=== PATIENT | female | born 1930 | race Caucasian/White ===

== ENCOUNTER 2016-05-25 06:31 | Inpatient (IN) | payer MEDICARE, OTHER ==
[2016-05-25] VITALS (10 sets, daily range): BP systolic 144–214; BP diastolic 67–97; PULSE 74–91; RESP 17–31; O2SAT 89–96
[~2016-05-25] VITALS: Ht 162.6 cm; Wt 47.0 kg
[~2016-05-25 06:31] MED LIST: AMLO5TAB2 PO; ATEN100T PO; ATOR20TA65 PO; FLUT12AE6 INHALATION; LACT-188 PO; LOSA50TA37; MULT-1065 PO; WARF5TAB7 PO
--- NOTE | 2016-05-25 06:31 | ED.REPORT ---
HPI-Dyspnea / Wheezing Date of Service May 25, 2016 ED Provider: Marbella Ibrahim MD 85 year old female with a history of chronic atrial fibrillation on warfarin, rheumatic heart disease complicated by mitral stenosis, CKD stage 3, and HTN presents to the ER via EMS due to increasing SOB for several weeks. EMS states that she was diagnosed with pneumonia in February 2016 and that symptoms have not completely resolved since. Associated symptoms include productive cough and headache. Patient denies fever, chest pain, weakness, dysuria, and bowel/ urinary symptoms. Medics report O2 saturation of 88% on room air, up to 95% with 2L O2. Patient has home O2 but there is question as to whether or not the patient understands how to use it. She lives at home with her . It is difficult to obtain a coherent history from the patient due to apparent confusion; she states that she was awakened by her upon EMS arrival. Admitted 02/17/16 after fall and observed due to warfarin use. Nursing Notes Stated Complaint: SHORTNESS OF BREATH Nursing Notes Reviewed: Yes Allergies: Coded Allergies: No Known Allergies (Verified , 08/13/15) Scheduled Amlodipine (Amlodipine) 5 Mg Tablet 5 MG PO HS Atenolol (Atenolol) 100 Mg Tablet 100 MG PO DAILY Atorvastatin Calcium (Atorvastatin Calcium) 20 Mg Tablet 20 MG PO HS Fluticasone/Salmeterol (Advair Hfa 230-21 Mcg Inhaler) 12 Gm Hfa.aer.ad 2 PUFFS INHALATION BID Lactose-Reduced Food (Ensure Original) 237 Ml Liquid 237 ML PO DAILY Losartan Potassium (Losartan Potassium) 50 Mg Tablet 50 MG DAILY Multivits-Min/Iron/FA/Lutein (Centrum Silver Women Tablet) 8 Mg Iron-400 Mcg- 300 Mcg Tablet 1 EACH PO DAILY Warfarin Sodium (Warfarin Sodium) 5 Mg Tablet 5 MG PO DAILY General Time Seen by MD: 06:31 Chief Complaint Shortness of breath Hx Obtained From: Patient, EMS Arrived By: Ambulance Sudden in Onset?: No Onset Occurred: More than a week ago... ("several weeks") Symptom Duration: Since onset Location: : None Associated with: Denies: Chest pain Context Related History: Reports: Pneumonia Past Medical History Past Medical History Notes: DNR Past Medical History 1. Rheumatic heart disease complicated by mitral stenosis. She underwent a balloon valvuloplasty in 2008. She also has some history of aortic sclerosis with [id number] aortic insufficiency. 2. Diverticulosis. 3. 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 4. 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 Reports: COPD, Hyperlipidemia, Hypertension Reports: Atrial fibrillation (Chronic, on coumadin), Kidney disease (Chronic, stage III) Past Surgical History Lumpectomies for breast carcinoma in situ in 1987 and 1996 Balloon Valvuloplasty in 2009 Reports: Appendectomy, Cataract surgery, Cholecystectomy Smoking History Never Smoker Social History Alcohol Use: Denies alcohol use Drug Use: Denies drug use Other Social History: Good social support, , Local resident Ambulatory Status Independent Review of Systems Constitutional: Denies: Chills, Fever, Weakness - generalized Respiratory: Reports: Dyspnea on exertion, Prod cough, clear, Shortness of breath Cardiovascular: Denies: Chest pain Complete sys rev & neg: except as marked. GI: Denies: Abdominal pain, Constipation, Diarrhea, Nausea, Vomiting Female: Denies: Dysuria, Urinary frequency, Urinary urgency Neurologic: Reports: Headache Physical Exam Physical Exam Notes: Initial Vital Signs Vital Signs (First) Date Time Temp Pulse Resp B/P Pulse Ox O2 Delivery O2 Flow Rate FiO2 05/25/16 06:35 37 86 22 214/97 89 Room Air 05/25/16 07:51 2 Initial VS: Reviewed Head / Eyes: Atraumatic, Normocephalic Abdomen / GI: Soft, Non-tender, No guarding, No rebound, No distention Extremities: Vascular intact, Neuro intact, No swelling, No tenderness Skin: Warm, Dry, No cyanosis General/Constitutional: Awake, Alert, Well developed Alertness: Positive: Confused Thin, almost to the point of cachexia. Neck: Atraumatic, Supple, No meningismus, Full range of motion, No swelling, Non-tender, No masses Respiratory / Chest: No rales, No rhonchi, No stridor Speaking in 4-5 word sentences. Poor air movement with decreased lung sounds in the Right base. Scattered wheezes throughout all lung sparrow. Cardiovascular: Heart rate NL, Regular rhythm, Heart sounds NL, Peripheral circulation NL Heart Rate / Rhythm: Positive: Irreg irregular rhythm Heart Sounds / Murmur: Positive: Diastolic murmur present. (II/, best heard at the apex) Neurologic: Speech NL, No motor deficits, No sensory deficits Mental Status: Positive: Confused Interpretation & Diagnostics Lab Results Interpretation Result Diagram: 05/25/16 0630 05/25/16 0630 Test 05/25/16 06:30 05/25/16 07:21 05/25/16 07:35 White Blood Count 10.0th/mm3 (3.8-10.1) Red Blood Count 4.98mil/mm3 (3.90-5.20) Hemoglobin 14.7g/dL (12.0-15.6) Hematocrit 45.9% (35.0-46.0) Mean Corpuscular Volume 92.2fL (81-100) Mean Corpuscular Hemoglobin 29.5pg (27.0-35.0) Mean Corpuscular Hemoglobin Concent 32.0% (32.0-37.0) Red Cell Distribution Width 15.5% (12.3-15.4) Platelet Count 300bil/L (150-400) Neutrophils (%) (Auto) 81.2% (40-74) Lymphocytes (%) (Auto) 9.7% (14-46) Monocytes (%) (Auto) 7.7% (4-12) Eosinophils (%) (Auto) 0.7% (0-5) Basophils (%) (Auto) 0.4% (0-3) Prothrombin Time 29.8sec (8.1-12.5) Prothromb Time International Ratio 2.73ratio Sodium Level 140mEq/L (134-144) Potassium Level 4.6mEq/L (3.5-5.2) Chloride Level 100mEq/L (97-108) Carbon Dioxide Level 28mmol/L (18-29) Blood Urea Nitrogen 42mg/dL (8-27) Creatinine 1.61mg/dL (0.57-1.00) Estimat Glomerular Filtration Rate 44mL/min (>59) Glucose Level 140mg/dL (60-99) Calcium Level 10.2mg/dL (8.5-10.1) Total Bilirubin 0.9mg/dL (0.0-1.2) Aspartate Amino Transf (AST/SGOT) 38U/L (0-50) Alanine Aminotransferase (ALT/SGPT) 19U/L (0-32) Alkaline Phosphatase 146U/L (25-165) Troponin T 0.013ug/L (0.0-0.011) Pro-B-Type Natriuretic Peptide 95015se/mL (0-738) Total Protein 8.0g/dL (6.4-8.4) Albumin 4.1g/dL (3.4-5.0) Procalcitonin 0.41ng/mL (0.00-0.08) Urine Color Straw (YELLOW) Urine Appearance Hazy (CLEAR,HAZY) Urine pH 7.0 (5.0-8.0) Urine Specific [place] 1.020 (1.003-1.035) Urine Protein 100mg/dL (NEG,TRACE) Urine Glucose (UA) Negativemg/dL (NEGATIVE) Urine Ketones Negativemg/dL (NEGATIVE) Urine Occult Blood Trace (NEGATIVE) Urine Nitrite Negative (NEGATIVE) Urine Bilirubin Negative (NEGATIVE) Urine Urobilinogen Normalmg/dL (NORMAL) Urine Leukocyte Esterase Trace (NEGATIVE) Urine RBC 0-2/hpf (0-2) Urine WBC 11-50/hpf (0-5) Urine Epithelial Cells Occasional/hpf (NONE-MOD) Urine Crystals None seen (NONE SEEN) Urine Bacteria Few/hpf (NONE-FEW) Urine Hyaline Casts None/lpf (NONE) Urine Granular Casts None seen (NONE SEEN) Urine Waxy Casts None seen (NONE SEEN) Urine Red Blood Cell Casts None seen (NONE SEEN) Urine White Blood Cell Casts None seen (NONE SEEN) Urine Mucus None seen (None Seen) Urine Trichomonas None seen (NONE SEEN) Urine Yeast None (NONE SEEN) Urinalysis Comment None Urine Culture Reflexed Indicated Lactic Acid Level 1.3mmol/L (0.4-2.0) ECG Interpretation ECG Interpretation: 4:1 atrial flutter. No ischemia. Similar to 02/17/2016 Time: 06:55 Interpreted by: ED physician X-Ray Chest Interpretation Chest Xray Interpretation: Cardiomegaly. Cephalization. Small left pleural effusion. No suggestion of infiltrate or pneumonia. View: Portable, 1 view Interpretation / Wet Read by: Wet read ED physician Re-Eval/Medical Decision Med Decision/Clinical Course Presents with increased confusion, increased dyspnea. Possibility of sepsis was considered she was given fluid as well as community-acquired pneumonia antibiotics while additional details will be sorted out. As labs and imaging returned white count was normal and she remains quite hypotensive as is her baseline. Suspect altered mental status is closer to her baseline and exacerbated by hypoxia likely not related to sepsis Acute decompensation of her heart failure with significant volume overload. Slight elevation in troponin likely subsequent to her heart failure rather than an N STEMI. UA shows white blood cells and she has received ceftriaxone will culture her urine and see if this turns out to truly be a UTI complicating all the above issues Source of Hx: Old records Re-Evaluation/Progress #1: Time of Eval: 08:19 Patient Status: Condition improved Re-Evaluation/Progress Note: Labs evaluated. Clinical picture is now changing to that of acute congestive heart failure rather than pneumonia. Will stop fluids. Mild diuresis. Arrange for hospital admission. We will also give her routine morning hypertensive meds, atenolol 100 mg and losartan 50 mg Re-Evaluation/Progress #2: Time of Eval: 08:26 Re-Evaluation/Progress Note: Discussed lab and radiology results and need for admission. Patient is amenable to the plan. CODE STATUS: DNAR, DNI Consultation : Referral / Consult Name: Praveen Hughes MD Consulted With: Hospitalist Call Returned at: 08:45 Labor Arbitrator Hearing Office: Agrees with eval, Agrees with plan, Accepts admit Counseled Regarding: Diagnosis, Lab results, Need for admission Discharge & Departure Impression: Primary Impression: CHF (congestive heart failure) Additional Impressions: Hypoxia Atrial fibrillation UTI (urinary tract infection) Disposition: ADMITTED TO HOSPITAL Discharge Condition All VS Reviewed: Yes Condition: Stable Referrals: Dusty Lee (PCP) Scribe Attestation Portions of this note were transcribed by Thanh Amor. I, Dr. Ibrahim, personally performed the history, physical exam and medical decision-making; I reviewed and confirmed the accuracy of the information in the transcribed note. Signed by: Marck Jimenez, 05/25/2016 and 08:47 copies to: Dusty Lee Shawna L MD May 25, 2016 06:31 THANH AMOR May 25, 2016 06:32
[2016-05-25] MEDS ORDERED: Albuterol-Ipratropium 3 mL Inhalation Solution ONE (06:38)
[2016-05-25] MEDS ORDERED: Albuterol-Ipratropium 3 mL Inhalation Solution NEB ONE (06:45)
[2016-05-25 06:52] LABS: BASOPHILS % (AUTO) 0.4 % (0-3); EOSINOPHILS % (AUTO) 0.7 % (0-5); MONOCYTES % (AUTO) 7.7 % (4-12); Mean Corpuscular Hemoglobin 29.5 pg (27.0-35.0); Mean Corpuscular Volume 92.2 fL (81-100); NEUTROPHILS % (AUTO) 81.2 % (40-74); Platelet Count 300 bil/L (150-400)
[2016-05-25] MEDS ORDERED: cefTRIAXone Inj 2,000 MG in Dextrose 5% Minibag Plus 50 ML IV ONE (06:55)
[2016-05-25] MEDS ORDERED: Azithromycin Inj 500 MG in Dextrose 5% w/Vial Mate 250 ML IV ONE (06:55)
[2016-05-25] MEDS ORDERED: MethylprednisoLONE Sodium Succinate 62.5 mg/mL 2 mL Inj IVPUSH ONE (06:55)
[2016-05-25] MEDS ORDERED: 0.9% Sodium Chloride 1,000 ML IV ONE (06:55)
[2016-05-25 07:13] LABS: TROPONIN T 0.013 ug/L (0.0-0.011)
[2016-05-25 07:45] LABS: INR 2.73 ratio
[2016-05-25 07:47] LABS: APPEARANCE,URINE HAZY (CLEAR,HAZY); COLOR,URINE STRAW (YELLOW); OCCULT BLOOD,URINE TRACE (NEGATIVE); UROBILINOGEN,URINE NORMAL (NORMAL)
[2016-05-25] MEDS ORDERED: Furosemide 10 mg/mL 4 mL Inj IVPUSH ONE (08:25)
[2016-05-25] MEDS ORDERED: Alum-Mag Hydrox-Simeth 30 mL Suspension PO PRN ×2 (09:30→11:25)
[2016-05-25] MEDS ORDERED: Ondansetron 2 mg/mL 2 mL Inj IVPUSH PRN ×2 (09:30→11:25)
[2016-05-25] MEDS ORDERED: Polyethylene Glycol (PEG) 17 Gm Powder PO PRN (11:25)
--- NOTE | 2016-05-25 12:21 | NUR ---
Arrival to 1002 Pt arrival from ER, report taken from TAHIRA Valerio. Pt able to get to [facility] with 1PA at transfer, reports generalized weakness which is improved from this morning. Pt is tachypneic but denies SOB at this time, on 3L NC, SpO2 98%. Denies pain. at bedside. Pt is A&O to self and place but is poor historian and dementia at baseline; is also a poor historian. Med rec completed based on external RX and son asked to bring med list in. Confirmed with that no medications were taken yesterday d/t malaise. Pt also reports a recent decline in nutritional intake d/t appetite loss; Ensure added to all meal trays.
--- NOTE | 2016-05-25 13:52 | PCM.CONPHA ---
Subjective Date of Service: May 25, 2016 Requesting Provider: Praveen Hughes MD Objective Vital Signs Date Time Temp Pulse Resp B/P Pulse Ox O2 Delivery O2 Flow Rate FiO2 05/25/16 13:45 36.6 82 28 144/76 94 Nasal Cannula 3.00 05/25/16 13:23 82 05/25/16 12:01 Supplement Oxygen 05/25/16 10:35 80 05/25/16 10:28 36.5 75 31 160/82 93 Nasal Cannula 3.00 05/25/16 09:23 37 77 19 148/78 96 Nasal Cannula 2 05/25/16 09:10 77 19 148/78 96 Nasal Cannula 2 05/25/16 07:51 91 22 153/71 95 Nasal Cannula 2 05/25/16 06:35 37 86 22 214/97 89 Room Air Test 05/25/16 06:30 05/25/16 07:21 05/25/16 07:35 White Blood Count 10.0th/mm3 (3.8-10.1) Red Blood Count 4.98mil/mm3 (3.90-5.20) Hemoglobin 14.7g/dL (12.0-15.6) Hematocrit 45.9% (35.0-46.0) Mean Corpuscular Volume 92.2fL (81-100) Mean Corpuscular Hemoglobin 29.5pg (27.0-35.0) Mean Corpuscular Hemoglobin Concent 32.0% (32.0-37.0) Red Cell Distribution Width 15.5% (12.3-15.4) Platelet Count 300bil/L (150-400) Neutrophils (%) (Auto) 81.2% (40-74) Lymphocytes (%) (Auto) 9.7% (14-46) Monocytes (%) (Auto) 7.7% (4-12) Eosinophils (%) (Auto) 0.7% (0-5) Basophils (%) (Auto) 0.4% (0-3) Prothrombin Time 29.8sec (8.1-12.5) Prothromb Time International Ratio 2.73ratio Sodium Level 140mEq/L (134-144) Potassium Level 4.6mEq/L (3.5-5.2) Chloride Level 100mEq/L (97-108) Carbon Dioxide Level 28mmol/L (18-29) Blood Urea Nitrogen 42mg/dL (8-27) Creatinine 1.61mg/dL (0.57-1.00) Estimat Glomerular Filtration Rate 44mL/min (>59) Glucose Level 140mg/dL (60-99) Calcium Level 10.2mg/dL (8.5-10.1) Total Bilirubin 0.9mg/dL (0.0-1.2) Aspartate Amino Transf (AST/SGOT) 38U/L (0-50) Alanine Aminotransferase (ALT/SGPT) 19U/L (0-32) Alkaline Phosphatase 146U/L (25-165) Troponin T 0.013ug/L (0.0-0.011) Pro-B-Type Natriuretic Peptide 63495df/mL (0-738) Total Protein 8.0g/dL (6.4-8.4) Albumin 4.1g/dL (3.4-5.0) Procalcitonin 0.41ng/mL (0.00-0.08) Urine Color Straw (YELLOW) Urine Appearance Hazy (CLEAR,HAZY) Urine pH 7.0 (5.0-8.0) Urine Specific [place] 1.020 (1.003-1.035) Urine Protein 100mg/dL (NEG,TRACE) Urine Glucose (UA) Negativemg/dL (NEGATIVE) Urine Ketones Negativemg/dL (NEGATIVE) Urine Occult Blood Trace (NEGATIVE) Urine Nitrite Negative (NEGATIVE) Urine Bilirubin Negative (NEGATIVE) Urine Urobilinogen Normalmg/dL (NORMAL) Urine Leukocyte Esterase Trace (NEGATIVE) Urine RBC 0-2/hpf (0-2) Urine WBC 11-50/hpf (0-5) Urine Epithelial Cells Occasional/hpf (NONE-MOD) Urine Crystals None seen (NONE SEEN) Urine Bacteria Few/hpf (NONE-FEW) Urine Hyaline Casts None/lpf (NONE) Urine Granular Casts None seen (NONE SEEN) Urine Waxy Casts None seen (NONE SEEN) Urine Red Blood Cell Casts None seen (NONE SEEN) Urine White Blood Cell Casts None seen (NONE SEEN) Urine Mucus None seen (None Seen) Urine Trichomonas None seen (NONE SEEN) Urine Yeast None (NONE SEEN) Urinalysis Comment None Urine Culture Reflexed Indicated Lactic Acid Level 1.3mmol/L (0.4-2.0) Assessment/Plan Assessment/Plan Warfarin dosing per pharmacy Indication: atrial fibrillation INR goal: 2-3 Home dose: warfarin 5 mg daily (per med rec. Attempted to confirm with patient but she appears confused and cannot recall.) INR today: 2.73 INR is therapeutic today. Will continue home dose of 5 mg daily. Give warfarin 5mg PO at 1700 today. Pharmacy to continue to monitor and dose warfarin daily. Thank you, Bibi Griffin Pharmacist Bibi Griffin May 25, 2016 13:52
--- NOTE | 2016-05-25 17:26 | DRSVH ---
PROCEDURE: X-RAY CHEST ONE VIEW, PORTABLE ([id number]) INDICATIONS: SHORTNESS OF BREATH TECHNIQUE: One view of the chest was acquired. COMPARISON: [facility], CR, XR CHEST 2VW, 03/23/2016, 11:43. [facility], C R, XR CHEST 1VW (PORTABLE), 02/17/2016, 5:07. FINDINGS: Surgical changes and devices: None. Lungs and pleura: Small pleural effusion is present and there is airspace opacity within the left navid g base. Lungs otherwise are clear and hyperinflated. Mediastinum: Mediastinal contours appear normal. Heart size is normal. Bones and chest wall: No suspicious bony lesions. Overlying soft tissues appear unremarkable. IMPRESSION: Small left pleural effusion and basilar airspace opacity consistent with compressive atel ectasis versus pneumonia. Correlate clinically. Dictated by: Yang Miner [facility] Interpreted: Eliana Don MD on 05/25/2016 at 9:57 Transcribed by: KEVIN on 05/25/2016 at 10:00 Approved by: Eliana Don MD, PhD on 05/25/2016 at 16:57
--- NOTE | 2016-05-25 17:31 | DRSVH ---
[facility] [address] [place] [address] Echocardiogram Report Name: SEJAL GILL JStudy Date: 05/25/2016 Heigh t: 65 in Hospital Exam Location: [facility] Weigh t: 100 lb Gender: Female BSA: 1.5 m2 : 1930 Age: 85 yrs BP: 1 60/82 mmHg Reason For Study: Congestive Heart Failure Ordering Physician: HOSPITALIST [facility] Performed By: Marianne Weeks Referring Physician: RONEN DIAZ Interpretation Summary The left ventricular cavity is small. There is mild concentric left ventricular hypertrophy. The ejection fraction is estimated to be 60-65%. Diastolic function could not be accurately assessed due to atrial fibrillation. The right ventricle is normal in size and function. The mitral valve leaflets are severely calcified. There is moderate calcification extending into the subvalvular apparatus. There is moderate mitral stenosis. The mitral valve mean gradient is 5.7 mmHg. There is trace mitral regurgitation. The aortic valve is moderately calcified. The aortic valve mean gradient is 19.9 mmHg. There is moderate to severe aortic stenosis. There is moderate aortic regurgitation. The left atrium is severely dilated. Spontaneous contrast in LA. The tricuspid valve is normal in structure and function. There is mild tricuspid regurgitation. The right ventricular systolic pressure is estimated at 26 mmHg assuming a right atrial pressure of 3 mm Hg. There is no pericardial effusion. There is a moderate left-sided pleural effusion. Compared to the previous study on 08/14/2015, the pleural effusion is new. Procedure: A two-dimensional transthoracic echocardiogram with color flow and Doppler was performed. The study quality was technically adequate. Comparison is made with the echocardiogram of 08/14/15. The patient was in atrial fibrillation with heart rates between 64-94 bpm during the exam. Left Ventricle: The left ventricular cavity is small. There is mild concentric left ventricular hypertrophy. The ejection fraction is estimated to be 60-65%. Diastolic function could not be accurately assessed due to atrial fibrillation. Right Ventricle: The right ventricle is normal in size and function. Atria: The left atrium is severely dilated. Spontaneous contrast in LA. Right atrial size is normal. There is no Doppler evidence for an interatrial shunt. Mitral Valve: The mitral valve leaflets are severely calcified. There is moderate calcification extending into the subvalvular apparatus. There is moderate mitral annular calcification. The mitral valve mean gradient is 5.7 mmHg. Mitral valve area by pressure half time is 1.9 cm2. There is moderate mitral stenosis. There is trace mitral regurgitation. Aortic Valve: The aortic valve is trileaflet. The aortic valve is moderately calcified. The peak aortic velocity is 2.95 m/sec. The aortic valve mean gradient is 19.9 mmHg. The calculated aortic valve area is 0.78 cm2. The aortic severity ratio is 0.27. There is moderate to severe aortic stenosis. There is moderate aortic regurgitation. Tricuspid Valve: The tricuspid valve is normal in structure and function. There is mild tricuspid regurgitation. The right ventricular systolic pressure is estimated at 26 mmHg assuming a right atrial pressure of 3 mm Hg. Pulmonic Valve: The pulmonic valve is not well seen, but is grossly normal. There is a trace or physiologic amount of pulmonic regurgitation. Great Vessels: The aortic root is normal size. The ascending aorta is normal in size. The pulmonary artery is not well visualized, but is probably normal size. The IVC is of normal diameter and collapses greater than 50% with a sniff. This suggests a low right atrial pressure of 3 mm Hg. Pericardium/ Pleura There is no pericardial effusion. There is a moderate left-sided pleural effusion. MMode/2D Measurements & Calculations LVIDd: 3.6 cm LA dimension: 4.8 cm RA long axis LVOT diam LVIDs: 2.8 cm FS: 22.6 % LA A2 area: 48.9 cm RA area AoV Opening EPSS: 1.3 cm LA A4 area: 54.6 cm IVSd: 1.2 cm LA length (vol): 8.8 cm: 17.5 cm Ao root diam LVPWd: 1.2 cm LA vol: 257.7 ml RA vol LA vol index : 42.4 ml asc Aorta RA Diam: 3.3 cm : 176.9 ml/m2 : 29.1 mm2 IVC diam: 1.4 cm LV moore. diameter/BSA LV sys. diameter/BSA RVD1 (basal) TAPSE: 1.3 cm (cm/m^2): 2.4 (cm/m^2): 1.9 Doppler Measurements & Calculations Ao V2 max MV P1/2t: 117.0 msec Med Peak E' Herve TR max herve : 294.8 cm/sec : 240.5 cm/sec Ao max PG MVA(VTI): 0.99 cm2 Lat Peak E' Herve TR max PG : 34.8 mmHg : 23.1 mmHg Ao mean PG PA V2 max : 19.3 mmHg : 68.6 cm/sec LVOT Max Herve PA mean PG : 69.4 cm/sec PA Accel Time IZABELA(I,D): 0.78 cm : 0.11 sec sev ratio: 0.27 AI P1/2t : 601.2 msec AI dec slope : 233.8 cm/s2c MV V2 mean MV P1/2t max herve Ao V2 mean LV V1 max PG : 108.6 cm/sec : 202.1 cm/sec MV mean PG MVA(P1/2t): 1.9 cm2 Ao V2 VTI: 60.6 cm LV V1 VTI IZABELA(V,D): 0.67 cm2 : 16.6 cm MV V2 VTI: 48.1 cm PA V2 mean IZABELA indexed to BSA : 47.2 cm/sec (cm^2/m^2): 0.54 Reading Physician:05:30 PM
[2016-05-25] MEDS ORDERED: WARF2.5T82 PO (17:38)
--- NOTE | 2016-05-25 19:46 | NUR ---
Warfarin P: Pt is poor historian and according to external pharmacy records she was taking 5mg Warfarin daily. Pharmacy to control dosing. When daughter arrived it was noted that 5mg dose is M/W/ and 2.5mg is taken all other days. I: notified. Pharmacy contacted, verbal confirmation given to give 5mg dose today based on PT/INR and the fact pt did not take dose yesterday. E: Pharmacy will recheck labs in morning and adjust dose accordingly.
[2016-05-25] MEDS: Fluticasone-Salmeterol 500-50 Inhaler INHALATION SCH (20:14)
[2016-05-25] MEDS ORDERED: Heparin 5,000 Unit/mL Inj SUBQ SCH (20:30)
--- NOTE | 2016-05-25 21:46 | PCM.HPMED ---
Subjective Date of Service May 25, 2016 Primary Provider: Admitting Physician: Praveen Hughes MD Primary Care Physician: Dusty Lee Attending Physician: Praveen Hughes MD Admit Status: From the Emergency Department, Full Admit, Admit to Red Team Chief Complaint: Shortness of breath History of Present Illness: The patient is an 85 year old female with a history of chronic atrial fibrillation on warfarin, rheumatic heart disease complicated by mitral stenosis , CKD stage 3, and HTN presents to the ER via EMS due to increasing SOB for several weeks. EMS states that she was diagnosed with pneumonia in February 2016 and that symptoms have not completely resolved since. Associated symptoms include productive cough and headache. Patient denies fever, chest pain, dysuria , and bowel/urinary symptoms. She now states that she had weakness. Patient apparently had an altered mental status and her called EMS services. Medics reported that the patient's O2 saturation of 88% on room air, up to 95% with 2L O2. Patient has home O2 but there is question as to whether or not the patient was using it properly. She lives at home with her . Apparently the patient's was awakened by her upon EMS arrival. Patient was evaluated treated in the emergency room by Dr. Marbella Chan. Dr. Chan states that the patient presented with increased confusion and increased dyspnea and therefore the possibility of sepsis was considered and patient was given a fluid bolus as well his IV antibiotics for community acquired pneumonia although details are sorted out. As labs and images returned white count was found to be normal and she was hypotensive as is her baseline. Altered mental status was closer to baseline and exacerbated by hypoxia likely not to sepsis. Patient was felt to have had acute decompensation of her heart failure with significant volume overload. There is slight elevation in troponin likely subsequent to heart failure rather than non-ST elevated DC. Urinalysis showed white blood cells and she had received ceftriaxone and urine culture was ordered. Given the above acute on chronic respiratory failure likely due to acute on chronic congestive heart failure patient was admitted to the hospital service. Review of Systems: General: Patient is in no apparent distress. HEENT: Patient has no headache, patient has no diplopia, patient has no changes in vision. She has had cataract surgery in 1 eye but she cannot remember which eye Patient has no problems with their ears, nose or throat. Patient has no known dental problems. Patient has no pharyngitis or history of thrush. Neck: Patient has no stiffness in the neck. Patient has no lymphadenopathy. Patient has no other problems with their neck. Pulmonary: Patient has no shortness of breath, no cough, no expectoration of sputum. Patient has no pleurisy. Patient has no chest pain. Patient has no history of asthma or COPD. Cardiovascular: Patient has no chest pain. Patient has a history of rheumatic heart disease and mitral valve stenosis. Patient underwent a balloon angioplasty procedure. She states most recently she was told that she was not a candidate for any further procedures. Patient has no palpitations. Patient has no history of myocardial infarction. Patient has no history of coronary artery disease. Gastrointestinal: Patient has no history of hepatitis A, B or C. Patient has no history of peptic ulcer disease. Patient has no history of gastroesophageal reflux disease. Patient has no history of nausea, vomiting, or diarrhea. Patient has no history of hematemesis, hematochezia, or melena. Patient has no history of colitis. Renal: Patient has no history of kidney disease. No history of kidney stones. Genitourinary: Patient has no history of dysuria, frequency, or incontinence. Patient has no previous history of genitourinary problems. Musculoskeletal: Patient has no history of muscular skeletal problems other than arthritis. Neurologic: Patient has a history of 3 small strokes, with some residual expressive aphasia. Psychiatric: Patient has no history of psychiatric problems. The remainder of the entire review of systems was reviewed with patient and is as mentioned above otherwise negative. Allergies Coded Allergies: No Known Allergies (Verified , 08/13/15) Home Medications Scheduled Amlodipine (Amlodipine) 5 Mg Tablet 5 MG PO HS Atenolol (Atenolol) 100 Mg Tablet 100 MG PO DAILY Atorvastatin Calcium (Atorvastatin Calcium) 20 Mg Tablet 20 MG PO HS Fluticasone/Salmeterol (Advair Hfa 230-21 Mcg Inhaler) 12 Gm Hfa.aer.ad 2 PUFFS INHALATION BID Lactose-Reduced Food (Ensure Original) 237 Ml Liquid 237 ML PO DAILY Losartan Potassium (Losartan Potassium) 50 Mg Tablet 50 MG DAILY Multivits-Min/Iron/FA/Lutein (Centrum Silver Women Tablet) 8 Mg Iron-400 Mcg- 300 Mcg Tablet 1 EACH PO DAILY Warfarin Sodium (Warfarin Sodium) 5 Mg Tablet 5 MG PO DAILY PMH 1. Rheumatic heart disease complicated by mitral stenosis. She underwent a balloon valvuloplasty in 2008. She also has some history of aortic sclerosis with [id number] aortic insufficiency. 2. Diverticulosis. 3. 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 4. 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 Cataract surgery one I, she does not remember which Cholecystectomy Family History Patient's father at the age of 80 of old age Patient's mother at age 75 from heart problems Patient's brother of unknown problems Patient's sister is not well mentally Social History Hx Alcohol Use: No Hx Substance Use: No Hx Tobacco Use: No Smoking Status: Never Smoker Living Arrangement: with Family (patient lives with her .) Additional Information Patient was born and raised in [place] until her family moved to [place]. 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 Patient returned a scholarship to college however she met her got . Patient has been for 61 years. She is 6 para 61 of her children at the age of 21 after committing suicide. The other 5 are alive and well. Exam Vital Signs Vital Sign - Last Date Time Temp Pulse Resp B/P Pulse Ox O2 Delivery O2 Flow Rate FiO2 05/25/16 19:47 36.4 74 17 146/67 90 Room Air 05/25/16 13:45 3.00 Exam General: Patient is in no apparent distress and she is now able lie flat without any difficulty. She is quite anxious however, and gets up rather quickly to sit up in bed. HEENT: Head is atraumatic and normocephalic. Eyes: Pupils are equally round and reactive to light and accommodation. Extraocular muscles are intact. Sclera are white, anicteric. Subconjunctival mucosa is pink. Ears and nose are unremarkable. Oropharynx: There is no mucosal lesions, there is no thrush, there is no pharyngitis. Dentition is fair Neck: Is supple, there are no nodes, or masses or tenderness. Chest: Is significant for some bibasilar rales and decreased breath sounds bilaterally. There are no rhonchi, wheezes or rubs appreciated Heart: Rate is controlled, rhythm is irregular. There is a grade 2/6 systolic ejection murmur heard best at the left sternal border radiating to the apex. There is no rub or gallop. Abdomen: Good bowel sounds are present. Abdomen is soft, nontender, no organomegaly or masses were appreciated. Extremities: Are symmetrical and well perfused. There is no edema, there is no cellulitis, no rash. Neurologic: There are no focal neurological deficits. Cranial nerves II through XII are intact. There are no sensory or motor deficits. Patient has some expressive aphasia Psychiatric: Patients mood is calm and shows no sign of agitation. Genital: Deferred Rectal: Deferred Lab and Diagnostics Result Diagram: 05/25/1662905/25/16629 Microbiology Blood and urine cultures are pending from the emergency room. X-Rays, CTs and MRIs PROCEDURE: X-RAY CHEST ONE VIEW, PORTABLE ([id number]) INDICATIONS: SHORTNESS OF BREATH TECHNIQUE: One view of the chest was acquired. COMPARISON: [facility], CR, XR CHEST 2VW, 03/23/2016, 11:43. [facility], CR, XR CHEST 1VW (PORTABLE), 02/17/2016, 5:07. FINDINGS: Surgical changes and devices: None. Lungs and pleura: Small pleural effusion is present and there is airspace opacity within the left lung base. Lungs otherwise are clear and hyperinflated. Mediastinum: Mediastinal contours appear normal. Heart size is normal. Bones and chest wall: No suspicious bony lesions. Overlying soft tissues appear unremarkable. IMPRESSION: Small left pleural effusion and basilar airspace opacity consistent with compressive atelectasis versus pneumonia. Correlate clinically. Dictated by: Yang Miner RRA Interpreted: Eliana Don MD on 05/25/2016 at 9 :57 Transcribed by: KEVIN on 05/25/2016 at 10:00 Approved by: Eliana Don MD, PhD on 05/25/2016 at 16:57 Cardiac Echo Impressions Echocardiogram Report Name: SEJAL GLIL JStudy Date: 05/25/2016 Heigh t: 65 in Hospital Exam Location: [facility] Weigh t: 100 lb Gender: Female BSA: 1.5 m2 : 1930 Age: 85 yrs BP: 1 60/82 mmHg Reason For Study: Congestive Heart Failure Ordering Physician: HOSPITALIST [facility] Performed By: Marianne Weeks Referring Physician: PRAVEEN HUGHES Interpretation Summary The left ventricular cavity is small. There is mild concentric left ventricular hypertrophy. The ejection fraction is estimated to be 60-65%. Diastolic function could not be accurately assessed due to atrial fibrillation. The right ventricle is normal in size and function. The mitral valve leaflets are severely calcified. There is moderate calcification extending into the subvalvular apparatus. There is moderate mitral stenosis. The mitral valve mean gradient is 5.7 mmHg. There is trace mitral regurgitation. The aortic valve is moderately calcified. The aortic valve mean gradient is 19.9 mmHg. There is moderate to severe aortic stenosis. There is moderate aortic regurgitation. The left atrium is severely dilated. Spontaneous contrast in LA. The tricuspid valve is normal in structure and function. There is mild tricuspid regurgitation. The right ventricular systolic pressure is estimated at 26 mmHg assuming a right atrial pressure of 3 mm Hg. There is no pericardial effusion. There is a moderate left-sided pleural effusion. Compared to the previous study on 08/14/2015, the pleural effusion is new. Assessment & Plan The patient is an 85 year old female with a history of chronic atrial fibrillation on warfarin, rheumatic heart disease complicated by mitral stenosis , CKD stage 3, and HTN presents to the ER via EMS due to increasing SOB for several weeks. EMS states that she was diagnosed with pneumonia in February 2016 and that symptoms have not completely resolved since. Associated symptoms include productive cough and headache. Patient denies fever, chest pain, dysuria , and bowel/urinary symptoms. She now states that she had weakness. Patient apparently had an altered mental status and her called EMS services. Medics reported that the patient's O2 saturation of 88% on room air, up to 95% with 2L O2. Patient has home O2 but there is question as to whether or not the patient was using it properly. She lives at home with her . Apparently the patient's was awakened by her upon EMS arrival. Patient was evaluated treated in the emergency room by Dr. Marbella Chan. Dr. Chan states that the patient presented with increased confusion and increased dyspnea and therefore the possibility of sepsis was considered and patient was given a fluid bolus as well his IV antibiotics for community acquired pneumonia although details are sorted out. As labs and images returned white count was found to be normal and she was hypotensive as is her baseline. Altered mental status was closer to baseline and exacerbated by hypoxia likely not to sepsis. Patient was felt to have had acute decompensation of her heart failure with significant volume overload. There is slight elevation in troponin likely subsequent to heart failure rather than non-ST elevated DC. Urinalysis showed white blood cells and she had received ceftriaxone and urine culture was ordered. Given the above acute on chronic respiratory failure likely due to acute on chronic congestive heart failure patient was admitted to the hospital service. Acute on chronic respiratory failure -Patient found to have hypoxia and confusion due to hypoxia with shortness of breath evidence of congestive heart failure and left pleural effusion with atelectasis - This appears to be primarily due to Acute on chronic diastolic congestive heart failure - Echocardiogram ordered and results are as above - IV Lasix 40 mg twice a day ordered - Oxygen ordered and I will ordered SVN treatments as needed - Solu-Medrol 125 mg IV were given in the emergency room will hold further doses. Chronic atrial fibrillation/atrial flutter - Continue warfarin per pharmacy - Telemetry monitoring - Rate control - Check serial troponins suspect slight elevation in troponins due to troponin leak from acute and chronic changes can congestive heart failure History of rheumatic heart disease - Patient appears to have progression of aortic stenosis to mild to severe which may be contributing to her congestive heart failure - Patient also has moderate mitral valve stenosis after balloon angioplasty and has a severely calcified valve. This also likely contributing to her diastolic congestive heart failure. - Continue telemetry monitoring Chronic kidney disease stage III - Patient was given a bolus of normal saline in the emergency room prior to her diagnosis of congestive heart failure. - Continue Lasix 40 mg IV twice a day for now - Monitor renal function very closely - Posterior fluid and electrolytes daily and replace deficiencies as needed. Disposition: Patient was admitted as an inpatient as it is expected that she will be her more than 2 mid dates for evaluation and treatment of the above problems. Pain Evaluation: Adequate Pain Control GI Prophylaxis: Proton Pump Inhibitor VTE Prophylaxis: Theraputic Anticoag with Warfarin Resuscitation Status: CPR: Attempt Resuscitation Praveen Hughes MD May 25, 2016 21:46
[2016-05-25] MEDS: Furosemide 10 mg/mL 4 mL Inj IVPUSH SCH (22:36)
--- NOTE | 2016-05-26 04:39 | NUR ---
Safety Pt is impulsive and unable to be reoriented to situation. SCDs left off as they pose a fall risk and keep pt awake. Becky alarm on for safety, staff in close proximity as often as possible. BSC at bedside, pt is weak but transfers well with assistance. Frequent rounding ongoing.
[2016-05-26 04:40] VITALS: BP 171/80; PULSE 73; RESP 16; O2SAT 91
[2016-05-26 06:01] LABS: BASOPHILS % (AUTO) 0.1 % (0-3); EOSINOPHILS % (AUTO) 0 % (0-5); MONOCYTES % (AUTO) 6.4 % (4-12); Mean Corpuscular Hemoglobin 29.5 pg (27.0-35.0); Mean Corpuscular Volume 92.5 fL (81-100); NEUTROPHILS % (AUTO) 88.4 % (40-74); Platelet Count 273 bil/L (150-400)
[2016-05-26 06:20] LABS: INR 4.05 ratio
[2016-05-26 06:27] LABS: TROPONIN T 0.01 ug/L (0.0-0.011)
[2016-05-26 06:41] LABS: Magnesium 1.9 mg/dL (1.6-2.6); Phosphorus 4.2 mg/dL (2.5-4.9)
[2016-05-26 08:00] VITALS: PULSE 66
[2016-05-26] MEDS: Fluticasone-Salmeterol 500-50 Inhaler INHALATION SCH ×2 (08:30→20:23)
[2016-05-26] MEDS ORDERED: cefTRIAXone Inj 1,000 MG, Lidocaine PF 1% Inj 2.1 ML in Syringe 0 EACH IM SCH (08:30)
[2016-05-26] MEDS: Pantoprazole 20 mg ER24 Tablet PO SCH (09:59)
[2016-05-26] MEDS: cefTRIAXone 2,000 mg/D5W 50 mL IV Minibag Plus IV SCH ×2 (10:03)
[2016-05-26] MEDS ORDERED: 0.9% Sodium Chloride 250 ML ONE (10:05)
[2016-05-26 10:06] VITALS: BP 142/101; PULSE 76; RESP 16; O2SAT 93
--- NOTE | 2016-05-26 10:25 | PCM.PHAPRO ---
Progress Date of Service: May 26, 2016 Requesting Provider: Praveen Hughes MD Shortness of breath Warfarin dosing per pharmacy Indication: atrial fibrillation INR goal: 2-3 Home dose: warfarin 5 mg on MWF and 2.5 all other days of the week (updated) Date -May 26-May INR 2.73 4.05 INR change 1.32 Warf Dose 5 mg XXXX INR is supratherapeutic today. Med rec was updated last night with daughter after warfarin dose was given. Usual dose on should have been warfarin 2.5 mg. Hold warfarin dose today. Pharmacy to continue to monitor and dose warfarin daily. Thank you, Bibi Griffin Pharmacist Bibi Griffin May 26, 2016 10:25
[2016-05-26] MEDS: Furosemide 10 mg/mL 4 mL Inj IVPUSH SCH ×2 (11:39→20:23)
--- NOTE | 2016-05-26 13:01 | DRSVH ---
PROCEDURE: X-RAY CHEST, TWO VIEWS ([id number]) INDICATIONS: 85 year-old female with congestive heart failure. TECHNIQUE: 2 views of the chest were acquired. COMPARISON: [facility], CR, XR CHEST 1VW (PORTABLE), 05/25/2016, 7:31. [facility], CR, XR CHEST 2VW, 03/23/2016, 11:43. [facility], CR, XR CHEST 2VW, 02/24/2016, 15:29. FINDINGS: Surgical changes and devices: None. Lungs and pleura: There is persistent small left subpulmonic pleural effusion. No pneumothorax. There is hazy left lower lobe opacity on the lateral projection. Right lung remains clear. Lung volumes ar e prominent. Mediastinum: Mediastinal contours are normal. Moderate cardiomegaly is unchanged. There is aortic a therosclerosis. Bones and chest wall: No suspicious bony abnormalities. Soft tissues appear unremarkable. IMPRESSION: 1. Persistent small left basal pleural effusion is of uncertain etiology. 2. Left lower lobe hazy opacity may represent compressive atelectasis and/or pneumonia. 3. Moderate cardiomegaly as before, without pulmonary edema to suggest congestive heart failure. 4. Prominent lung volumes raise the question of chronic obstructive pulmonary disease. Dictated by: Malcolm Winslow M.D. on 05/26/2016 at 12:58 Approved by: Malcolm Winslow M.D. on 05/26/2016 at 13:00
--- NOTE | 2016-05-26 13:55 | NUR ---
Social Work: Initial Assessment attempt SW unable to complete initial assessment with patient due to patient's altered mental status. [employer] Serviceperson attempted to speak with patient's spouse to complete initial assessment, but spouse stated that he would be at the hospital later today and requested that the SW come by the room. SW will attempt to complete initial assessment later. Bharati Aguayo, GRETCHEN, ACM
[2016-05-26 15:01] VITALS: PULSE 88
[2016-05-26 15:26] VITALS: BP 154/80; PULSE 68; RESP 18; O2SAT 94
--- NOTE | 2016-05-26 19:19 | NUR ---
Warfarin Warfarin dose held today d/t increased PT/INR of 44.6/4.05. aware. Redraw performed for tomorrow.
[2016-05-26 20:17] VITALS: BP 180/79; PULSE 82; RESP 20; O2SAT 92
--- NOTE | 2016-05-26 20:46 | PCM.PNMED ---
Subjective Date of Service May 26, 2016 Subjective The patient is feeling a little bit better. She was able to ambulate in the hallway with physical therapy today. She has no new complaints. Exam Vital Signs Vital Sign - Last Date Time Temp Pulse Resp B/P Pulse Ox O2 Delivery O2 Flow Rate FiO2 05/26/16 20:17 36.5 82 20 180/79 92 Nasal Cannula 2.00 Intake and Output 05/25/16 05/25/16 05/26/16 Cumulative From/Thru 15:00 23:00 07:00 05/25/16 08:18 - 05/26/16 05:09 Intake Total 500 ml 420 ml 100 ml 1020 ml Output Total 600 ml 780 ml 1380 ml Balance 500 ml -180 ml -680 ml -360 ml Intake Oral 420 ml 100 ml 520 ml IV Total 500 ml 500 ml Output Urine Total 600 ml 780 ml 1380 ml # Bowel Movements 1 1 Exam General: The patient is in no apparent distress. HEENT: Head is atraumatic and normocephalic. Eyes: Pupils are equally round and reactive to light and accommodation. Extraocular muscles are intact. Sclera are white, anicteric. Subconjunctival mucosa is pink. Ears and nose are unremarkable. Oropharynx: There is no mucosal lesions, there is no thrush, there is no pharyngitis. Dentition is fair. Neck: Is supple, there are no nodes, or masses or tenderness. Chest: Is significant for some bibasilar rales and decreased breath sounds bilaterally. There are no rhonchi, wheezes or rubs appreciated Heart: Rate is controlled, rhythm is irregular. There is a grade 2/6 systolic ejection murmur heard best at the left sternal border radiating to the apex. There is no rub or gallop. Abdomen: Good bowel sounds are present. Abdomen is soft, nontender, no organomegaly or masses were appreciated. Extremities: Are symmetrical and well perfused. There is no edema, there is no cellulitis, no rash. Neurologic: There are no focal neurological deficits. Cranial nerves II through XII are intact. There are no sensory or motor deficits. Patient has some expressive aphasia Psychiatric: Patients mood is calm and shows no sign of agitation. Genital: Deferred Rectal: Deferred Lab and Diagnostics Result Diagram: 05/26/16 0520 05/26/16 0520 Microbiology Blood and urine cultures are pending from the emergency room. X-Rays, CTs and MRIs PROCEDURE: X-RAY CHEST ONE VIEW, PORTABLE ([id number]) INDICATIONS: SHORTNESS OF BREATH TECHNIQUE: One view of the chest was acquired. COMPARISON: [facility], CR, XR CHEST 2VW, 03/23/2016, 11:43. [facility], CR, XR CHEST 1VW (PORTABLE), 02/17/2016, 5:07. FINDINGS: Surgical changes and devices: None. Lungs and pleura: Small pleural effusion is present and there is airspace opacity within the left lung base. Lungs otherwise are clear and hyperinflated. Mediastinum: Mediastinal contours appear normal. Heart size is normal. Bones and chest wall: No suspicious bony lesions. Overlying soft tissues appear unremarkable. IMPRESSION: Small left pleural effusion and basilar airspace opacity consistent with compressive atelectasis versus pneumonia. Correlate clinically. Dictated by: Yang Miner RRA Interpreted: Eliana Don MD on 05/25/2016 at 9 :57 Transcribed by: KEVIN on 05/25/2016 at 10:00 Approved by: Eliana Don MD, PhD on 05/25/2016 at 16:57 Cardiac Echo Impressions Echocardiogram Report Name: SEJAL GILL JStudy Date: 05/25/2016 Heigh t: 65 in Hospital Exam Location: [facility] Weigh t: 100 lb Gender: Female BSA: 1.5 m2 : 1930 Age: 85 yrs BP: 1 60/82 mmHg Reason For Study: Congestive Heart Failure Ordering Physician: HOSPITALIST [facility] Performed By: Marianne Weeks Referring Physician: PRAVEEN HUGHES Interpretation Summary The left ventricular cavity is small. There is mild concentric left ventricular hypertrophy. The ejection fraction is estimated to be 60-65%. Diastolic function could not be accurately assessed due to atrial fibrillation. The right ventricle is normal in size and function. The mitral valve leaflets are severely calcified. There is moderate calcification extending into the subvalvular apparatus. There is moderate mitral stenosis. The mitral valve mean gradient is 5.7 mmHg. There is trace mitral regurgitation. The aortic valve is moderately calcified. The aortic valve mean gradient is 19.9 mmHg. There is moderate to severe aortic stenosis. There is moderate aortic regurgitation. The left atrium is severely dilated. Spontaneous contrast in LA. The tricuspid valve is normal in structure and function. There is mild tricuspid regurgitation. The right ventricular systolic pressure is estimated at 26 mmHg assuming a right atrial pressure of 3 mm Hg. There is no pericardial effusion. There is a moderate left-sided pleural effusion. Compared to the previous study on 08/14/2015, the pleural effusion is new. Assessment & Plan The patient is an 85 year old female with a history of chronic atrial fibrillation on warfarin, rheumatic heart disease complicated by mitral stenosis , CKD stage 3, and HTN presents to the ER via EMS due to increasing SOB for several weeks. EMS states that she was diagnosed with pneumonia in February 2016 and that symptoms have not completely resolved since. Associated symptoms include productive cough and headache. Patient denies fever, chest pain, dysuria , and bowel/urinary symptoms. She now states that she had weakness. Patient apparently had an altered mental status and her called EMS services. Medics reported that the patient's O2 saturation of 88% on room air, up to 95% with 2L O2. Patient has home O2 but there is question as to whether or not the patient was using it properly. She lives at home with her . Apparently the patient's was awakened by her upon EMS arrival. Patient was evaluated treated in the emergency room by Dr. Marbella Chan. Dr. Chan states that the patient presented with increased confusion and increased dyspnea and therefore the possibility of sepsis was considered and patient was given a fluid bolus as well his IV antibiotics for community acquired pneumonia although details are sorted out. As labs and images returned white count was found to be normal and she was hypotensive as is her baseline. Altered mental status was closer to baseline and exacerbated by hypoxia likely not to sepsis. Patient was felt to have had acute decompensation of her heart failure with significant volume overload. There is slight elevation in troponin likely subsequent to heart failure rather than non-ST elevated NM. Urinalysis showed white blood cells and she had received ceftriaxone and urine culture was ordered. Given the above acute on chronic respiratory failure likely due to acute on chronic congestive heart failure patient was admitted to the hospital service. Acute on chronic respiratory failure present on admission, improving - Patient found to have hypoxia, and confusion due to hypoxia, with shortness of breath secondary to congestive heart failure and left pleural effusion with atelectasis - This appears to be primarily due to Acute on chronic diastolic congestive heart failure - Echocardiogram ordered and results are as above - Continue IV Lasix 40 mg twice a day - Oxygen ordered and continue SVN treatments as needed - Solu-Medrol 125 mg IV were given in the emergency room we have held further doses. Chronic atrial fibrillation/atrial flutter - Continue warfarin per pharmacy - Telemetry monitoring - Rate control - Check serial troponins. I suspect slight elevation in troponins is due to troponin leak from acute and chronic changes can congestive heart failure History of rheumatic heart disease - Patient appears to have progression of aortic stenosis from mild to severe which may be contributing to her congestive heart failure - Patient also has moderate mitral valve stenosis after balloon angioplasty and has a severely calcified valve. This also likely contributing to her diastolic congestive heart failure. - Continue telemetry monitoring Chronic kidney disease stage III - Patient was given a bolus of normal saline in the emergency room prior to her diagnosis of congestive heart failure. - Continue Lasix 40 mg IV twice a day for now least until 05/27/2016 - Monitor renal function very closely - Monitor electrolytes daily and replace deficiencies as needed. Disposition: Patient will need to be hospitalized for another 24-48 hours for further evaluation and treatment of the above problems. Dr. Rakan Wan will follow in a.m. Pain Evaluation: Adequate Pain Control GI Prophylaxis: Proton Pump Inhibitor VTE Prophylaxis: Theraputic Anticoag with Warfarin Resuscitation Status: CPR: Attempt Resuscitation Praveen Hughes MD May 26, 2016 20:46
[2016-05-27] VITALS (7 sets, daily range): BP systolic 128–199; BP diastolic 73–93; PULSE 65–95; RESP 16–18; O2SAT 92–96
--- NOTE | 2016-05-27 00:43 | NUR ---
Blood Pressure BP @ beginning of shift: 180/79. Received scheduled HS anti-hypertensives. BP at recheck: 199/77. FYI page sent to Dr. Barber @ [phone]. No new orders received.
[2016-05-27 05:27] LABS: BASOPHILS % (AUTO) 0.2 % (0-3); EOSINOPHILS % (AUTO) 0.2 % (0-5); MONOCYTES % (AUTO) 8.7 % (4-12); Mean Corpuscular Hemoglobin 29.9 pg (27.0-35.0); Mean Corpuscular Volume 92.6 fL (81-100); NEUTROPHILS % (AUTO) 82.6 % (40-74); Platelet Count 276 bil/L (150-400)
[2016-05-27 05:47] LABS: INR 4.61 ratio
--- NOTE | 2016-05-27 07:55 | PCM.PHAPRO ---
Progress Warfarin Management: -inr remains supratherapeutic, 4.61. will hold dose this evening and monitor Berta Chapa [facility] May 27, 2016 07:55
[2016-05-27] MEDS: Fluticasone-Salmeterol 500-50 Inhaler INHALATION SCH ×2 (08:30→20:55)
[2016-05-27] MEDS: Pantoprazole 20 mg ER24 Tablet PO SCH (10:22)
[2016-05-27] MEDS: cefTRIAXone 2,000 mg/D5W 50 mL IV Minibag Plus IV SCH ×2 (10:22)
[2016-05-27] MEDS: Furosemide 10 mg/mL 4 mL Inj IVPUSH SCH ×2 (10:23→20:55)
--- NOTE | 2016-05-27 11:46 | NUR ---
KAILEY Signed. Jaelyn Yoo PERSONNEL ANALYST
--- NOTE | 2016-05-27 12:58 | PCM.PHAPRO ---
Progress Warfarin Management by Pharmacy: -inr remains supratherapeutic at 4.61 today. will hold dose this evening and monitor Berta Chapa [facility] May 27, 2016 12:58
--- NOTE | 2016-05-27 14:06 | NUR ---
Social Work- Initial Assessment Data: See Initial Assessment. Pt is a 85 year old female admitted 05/25/16 for CHF, COPD, UTI per H&P. Pt's insurance is [employer]. PCP is FARRAH Monte. ALEC met with pt's daughter Pia [phone] at bedside to discuss discharge planning, SW role explained. Pt resides in [place] in an apartment with her , Jay [phone], where she receives assistance with bathing, meal prep, and housekeeping through home planning consultant salesperson care 3x per week. Pt uses a cane at baseline and does not drive. Pt has no HH history. Pt was a pt at [facility] 3 years prior to admission after a hip fracture. Pt has LTC insurance through [employer] and [employer]. PT recommends home with 24/7 caregiving at this time. ALEC explained PT recommendation to daughter. Pia stated understanding of recommendations. SW encouraged daughter to continue to think about long tern care solutions as well as immediate discharge planning needs. Daughter states that family will increase caregiving hours through current caregiving company that pt is already familiar with. ALEC discussed DPOA, pt has DPOA on file. SW provided plan and phone number on [employer]. SW will continue to follow. Assessment: Pt who would benefit from 24/7 caregiving. Plan: PT recommending home with 24/7 caregiving. Pt's daughter to pursue 24/7 caregiving to have in place at discharge. ALEC continues to follow. CHAVA Díza Addendum: 05/27/16 at 1441 by ALBANIA CORTEZ Amended: Links added.
--- NOTE | 2016-05-27 14:27 | PCM.PNMED ---
Subjective Date of Service May 27, 2016 Subjective She is seen in follow-up of her congestive heart failure and dementia. Her son and daughter are present. When I asked her who Og Souza is she says "well of course, he is the [employer]." She is diuresing and the BNP is dropping. Exam Vital Signs Vital Sign - Last Date Time Temp Pulse Resp B/P Pulse Ox O2 Delivery O2 Flow Rate FiO2 05/27/16 09:00 80 05/27/16 05:10 36.4 16 162/93 94 Nasal Cannula 2.00 Intake and Output 05/26/16 05/26/16 05/27/16 Cumulative From/Thru 15:00 23:00 07:00 05/25/16 08:18 - 05/27/16 05:21 Intake Total 796 ml 200 ml 2016 ml Output Total 600 ml 540 ml 2520 ml Balance 196 ml -340 ml -504 ml Intake Oral 736 ml 200 ml 1456 ml IV Total 60 ml 560 ml Output Urine Total 600 ml 540 ml 2520 ml # Voids 3 3 # Bowel Movements 0 1 Exam General: The patient is in no apparent distress. Chest: There is significant wheezing bilaterally. No crackles are heard. Heart: Rate is controlled, rhythm is irregular. I do not hear her murmur today. Extremities: Are symmetrical and well perfused. There is no edema, there is no cellulitis, no rash. Neurologic: There are no focal neurological deficits. Patient has some expressive aphasia/confusion Psychiatric: Patients mood is calm and shows no sign of agitation. Lab and Diagnostics Result Diagram: 05/27/16 0510 05/27/16 0510 Microbiology Blood and urine cultures are pending from the emergency room. X-Rays, CTs and MRIs PROCEDURE: X-RAY CHEST ONE VIEW, PORTABLE ([id number]) INDICATIONS: SHORTNESS OF BREATH TECHNIQUE: One view of the chest was acquired. COMPARISON: [facility], CR, XR CHEST 2VW, 03/23/2016, 11:43. [facility], CR, XR CHEST 1VW (PORTABLE), 02/17/2016, 5:07. FINDINGS: Surgical changes and devices: None. Lungs and pleura: Small pleural effusion is present and there is airspace opacity within the left lung base. Lungs otherwise are clear and hyperinflated. Mediastinum: Mediastinal contours appear normal. Heart size is normal. Bones and chest wall: No suspicious bony lesions. Overlying soft tissues appear unremarkable. IMPRESSION: Small left pleural effusion and basilar airspace opacity consistent with compressive atelectasis versus pneumonia. Correlate clinically. Dictated by: Yang Miner RRA Interpreted: Eliana Don MD on 05/25/2016 at 9 :57 Transcribed by: KEVIN on 05/25/2016 at 10:00 Approved by: Eliana Don MD, PhD on 05/25/2016 at 16:57 Cardiac Echo Impressions Echocardiogram Report Name: SEJAL GILL JStudy Date: 05/25/2016 Heigh t: 65 in Hospital Exam Location: [facility] Weigh t: 100 lb Gender: Female BSA: 1.5 m2 : 1930 Age: 85 yrs BP: 1 60/82 mmHg Reason For Study: Congestive Heart Failure Ordering Physician: HOSPITALIST [facility] Performed By: Marianne Weeks Referring Physician: RONEN DIAZ Interpretation Summary The left ventricular cavity is small. There is mild concentric left ventricular hypertrophy. The ejection fraction is estimated to be 60-65%. Diastolic function could not be accurately assessed due to atrial fibrillation. The right ventricle is normal in size and function. The mitral valve leaflets are severely calcified. There is moderate calcification extending into the subvalvular apparatus. There is moderate mitral stenosis. The mitral valve mean gradient is 5.7 mmHg. There is trace mitral regurgitation. The aortic valve is moderately calcified. The aortic valve mean gradient is 19.9 mmHg. There is moderate to severe aortic stenosis. There is moderate aortic regurgitation. The left atrium is severely dilated. Spontaneous contrast in LA. The tricuspid valve is normal in structure and function. There is mild tricuspid regurgitation. The right ventricular systolic pressure is estimated at 26 mmHg assuming a right atrial pressure of 3 mm Hg. There is no pericardial effusion. There is a moderate left-sided pleural effusion. Compared to the previous study on 08/14/2015, the pleural effusion is new. Assessment & Plan The patient is an 85 year old female with a history of chronic atrial fibrillation on warfarin, rheumatic heart disease complicated by mitral stenosis , CKD stage 3, and HTN presents to the ER via EMS due to increasing SOB for several weeks. Acute on chronic respiratory failure present on admission, improving - Patient found to have hypoxia, and confusion due to hypoxia, with shortness of breath secondary to congestive heart failure and left pleural effusion with atelectasis - This appears to be primarily due to Acute on chronic diastolic congestive heart failure - Echocardiogram ordered and results are as above - Continue IV Lasix 40 mg twice a day , potassium today is 3.5, BNP is 9513, TSH is 0.257 - Oxygen ordered and continue SVN treatments as needed - Solu-Medrol 125 mg IV were given in the emergency room we have held further doses. Chronic atrial fibrillation/atrial flutter - Continue warfarin per pharmacy, INR today is 4.61 - Telemetry monitoring - Rate control History of rheumatic heart disease - Patient appears to have progression of aortic stenosis from mild to severe which may be contributing to her congestive heart failure - Patient also has moderate mitral valve stenosis after balloon angioplasty and has a severely calcified valve. This also likely contributing to her diastolic congestive heart failure. - Continue telemetry monitoring Chronic kidney disease stage III - Patient was given a bolus of normal saline in the emergency room prior to her diagnosis of congestive heart failure. - Continue Lasix 40 mg IV twice a day for now least until 05/28/2016 - Monitor renal function very closely - Monitor electrolytes daily and replace deficiencies as needed. Dementia/expressive aphasia -This is quite evident today. -She lives in a condominium with her 91-year-old -Family are aware that she may need chcf placement or 24-hour care at home. Apparently the family is able to afford that. -She has had a physical therapy evaluation confirming her need for skilled care either at home or a chcf setting. Disposition: Patient will need to be hospitalized for another 24-48 hours for further evaluation and treatment of the above problems. GI Prophylaxis: Proton Pump Inhibitor VTE Prophylaxis: Theraputic Anticoag with Warfarin VTE Mechanical Devices: Intermittant Pneumatic CD Resuscitation Status: CPR: Attempt Resuscitation Guillaume Branch MD May 27, 2016 10:23
--- NOTE | 2016-05-27 14:31 | NUR ---
NUTRITION ASSESSMENT: ASSESS:85 YO female admitted with hypoxia and confusion due with shortness of breath, evidence of congestive heart failure and left pleural effusion with atelectasis, primarily due to acute on chronic diastolic congestive heart failure exacerbation. Patient appears to have progression of aortic stenosis to mild to severe which may be contributing to her congestive heart failure. She at baseline has dementia/expressive aphasia. -This is quite evident today. Family are aware that she may need skilled nursing placement or 24-hour care at home. Apparently the family is able to afford that. She has had a physical therapy evaluation confirming her need for skilled care either at home or a skilled nursing setting. Of note, she has had a slow but progressive weight loss of 7.2 kg x 9.5 months = 13.56%, with a BMI of 17.0 kg/m2. Code status: DNR / DNI. 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 DIET:Heart healthy. PO intake bites - 90% trays. LABS: Reviewed. Chloride 94, CO2 31, BUN 54, Cr 1.59, Glu 138, A1c 6.3, BNP 9513, Alb 3.5. MEDICATIONS: Reviewed. NUTRITION FOCUSED PHYSICAL ASSESSMENT: GI symptoms / stool: BM x 1 (05/25).Jimmy: 20. Skin Integrity: No issues documented. ANTHROPOMETRICS: Current Wt: 45.9 kgBMI: 17.0 kg/m2.Admit weight: 47.5 kg IBW: 54.5 kg (84.2% IBW) ESTIMATED NEEDS (UNDERWEIGHT, CKD): Calories: 1377 - 1607 kcal (30 - 35 kcal / kg BW) Protein: 55 - 69 g protein (1.2 - 1.5 g / kg BW) Fluids: 1148 mL (Approx. 25 mL/kg BW) NUTRITION DIAGNOSIS: 1)Inadequate oral intake related to inability to consume sufficient energy, as evidenced by inadequate social needs, dementia, slow but progressive weight loss. INTERVENTION: 1) Will add Ensure and Magic Cups to trays during admit. MONITOR/EVALUATE: Diet tolerance, PO intake, labs, GI/nutrition status. Follow up per moderate nutrition risk guidelines.
--- NOTE | 2016-05-27 18:22 | NUR ---
Activity Pt up to BSC and with PT, but declined to walk more or sit in chairs for meals, very sleepy during shift. Pt had two loose BM's this AM, notified and ordered c. diff sample to be sent and put on precautions. No more BM's during shift and specimen container outside room. Pt up to BSC and has brief on for bowel incontinence. Pt pleasantly confused and needs redirection and frequent reminders when getting up. Pt on 2L NC for desating, is on home O2.
[2016-05-28 01:43] VITALS: BP 124/76; PULSE 64; RESP 18; O2SAT 98
[2016-05-28 05:10] LABS: BASOPHILS % (AUTO) 0.3 % (0-3); EOSINOPHILS % (AUTO) 0.2 % (0-5); MONOCYTES % (AUTO) 9.8 % (4-12); Mean Corpuscular Hemoglobin 29.8 pg (27.0-35.0); Platelet Count 259 bil/L (150-400)
[2016-05-28 05:34] LABS: INR 3.37 ratio
[2016-05-28 06:25] VITALS: BP 178/74; PULSE 68; RESP 16; O2SAT 94
--- NOTE | 2016-05-28 07:21 | NUR ---
Mentation Pt remains pleasantly confused. No attempted to get OOB without assistance. Continues to have loose stools. Sample sent. Results pending. No overt complications noted.
--- NOTE | 2016-05-28 07:38 | PCM.PHAPRO ---
Progress Warfarin Management by Pharmacy: Indication: atrial fibrillation INR goal: 2-3 Home dose: warfarin 5 mg on MWF and 2.5 all other days of the week Concurrent anticoagulation: none Coagulation Trends: 2-May 3-May 4-May 28-May 2.73 4.05 4.61 3.37 1.32 0.56 -1.24 5 mg HOLD HOLD Plan: inr has decreased to 3.37 today. will give a reduced dose of warfarin 1mg this evening and monitor Berta Chapa [facility] May 28, 2016 07:38
[2016-05-28] MEDS: Furosemide 10 mg/mL 4 mL Inj IVPUSH SCH ×2 (08:16→21:22)
[2016-05-28] MEDS: cefTRIAXone 2,000 mg/D5W 50 mL IV Minibag Plus IV SCH ×2 (08:16)
[2016-05-28] MEDS: Pantoprazole 20 mg ER24 Tablet PO SCH (08:17)
[2016-05-28] MEDS: Fluticasone-Salmeterol 500-50 Inhaler INHALATION SCH ×2 (08:18→20:30)
--- NOTE | 2016-05-28 11:40 | PCM.PNMED ---
Subjective Date of Service May 28, 2016 Subjective She looks very weak and confused. She has no complaints. The INR is 3.27 The WBC is 14.7 [place] [address] The K is 3.2 She has diuresed another 0.3 kg. Exam Vital Signs Vital Sign - Last Date Time Temp Pulse Resp B/P Pulse Ox O2 Delivery O2 Flow Rate FiO2 05/28/16 06:25 37.3 68 16 178/74 94 Nasal Cannula 2.00 Intake and Output 05/27/16 05/27/16 05/28/16 Cumulative From/Thru 15:00 23:00 07:00 05/25/16 08:18 - 05/28/16 06:25 Intake Total 60 ml 360 ml 250 ml 2686 ml Output Total 200 ml 807 ml 3527 ml Balance 60 ml 160 ml -557 ml -841 ml Intake Oral 360 ml 250 ml 2066 ml IV Total 60 ml 620 ml Output Urine Total 200 ml 2720 ml Urine/Stool Mix 807 ml 807 ml # Voids 3 # Bowel Movements 2 4 7 Exam General: The patient is in no apparent distress. Chest: CTAB Heart: RRR I do not hear her murmur today. Extremities: Are symmetrical and well perfused. There is no edema, there is no cellulitis, no rash. Neurologic: There are no focal neurological deficits. Patient has some expressive aphasia/confusion Psychiatric: Patients mood is calm and shows no sign of agitation. Lab and Diagnostics Result Diagram: 05/28/16 0457 05/28/16 0457 Microbiology Blood and urine cultures are pending from the emergency room. X-Rays, CTs and MRIs PROCEDURE: X-RAY CHEST ONE VIEW, PORTABLE ([id number]) INDICATIONS: SHORTNESS OF BREATH TECHNIQUE: One view of the chest was acquired. COMPARISON: [facility], CR, XR CHEST 2VW, 03/23/2016, 11:43. [facility], CR, XR CHEST 1VW (PORTABLE), 02/17/2016, 5:07. FINDINGS: Surgical changes and devices: None. Lungs and pleura: Small pleural effusion is present and there is airspace opacity within the left lung base. Lungs otherwise are clear and hyperinflated. Mediastinum: Mediastinal contours appear normal. Heart size is normal. Bones and chest wall: No suspicious bony lesions. Overlying soft tissues appear unremarkable. IMPRESSION: Small left pleural effusion and basilar airspace opacity consistent with compressive atelectasis versus pneumonia. Correlate clinically. Dictated by: Yang Miner RRA Interpreted: Eliana Don MD on 05/25/2016 at 9 :57 Transcribed by: KEVIN on 05/25/2016 at 10:00 Approved by: Eliana Don MD, PhD on 05/25/2016 at 16:57 Cardiac Echo Impressions Echocardiogram Report Name: SEJAL GILL JStudy Date: 05/25/2016 Heigh t: 65 in Hospital Exam Location: [facility] Weigh t: 100 lb Gender: Female BSA: 1.5 m2 : 1930 Age: 85 yrs BP: 1 60/82 mmHg Reason For Study: Congestive Heart Failure Ordering Physician: HOSPITALIST [facility] Performed By: Marianne Weeks Referring Physician: RONEN DIAZ Interpretation Summary The left ventricular cavity is small. There is mild concentric left ventricular hypertrophy. The ejection fraction is estimated to be 60-65%. Diastolic function could not be accurately assessed due to atrial fibrillation. The right ventricle is normal in size and function. The mitral valve leaflets are severely calcified. There is moderate calcification extending into the subvalvular apparatus. There is moderate mitral stenosis. The mitral valve mean gradient is 5.7 mmHg. There is trace mitral regurgitation. The aortic valve is moderately calcified. The aortic valve mean gradient is 19.9 mmHg. There is moderate to severe aortic stenosis. There is moderate aortic regurgitation. The left atrium is severely dilated. Spontaneous contrast in LA. The tricuspid valve is normal in structure and function. There is mild tricuspid regurgitation. The right ventricular systolic pressure is estimated at 26 mmHg assuming a right atrial pressure of 3 mm Hg. There is no pericardial effusion. There is a moderate left-sided pleural effusion. Compared to the previous study on 08/14/2015, the pleural effusion is new. Assessment & Plan The patient is an 85 year old female with a history of chronic atrial fibrillation on warfarin, rheumatic heart disease complicated by mitral stenosis , CKD stage 3, and HTN presents to the ER via EMS due to increasing SOB for several weeks. Acute on chronic respiratory failure present on admission, improving - Patient found to have hypoxia, and confusion due to hypoxia, with shortness of breath secondary to congestive heart failure and left pleural effusion with atelectasis - This appears to be primarily due to Acute on chronic diastolic congestive heart failure - Echocardiogram ordered and results are as above - Continue IV Lasix 40 mg twice a day , potassium today is 3.2, BNP is up again to 10,422, TSH is 0.257 - Oxygen - Solu-Medrol 125 mg IV were given in the emergency room we have held further doses. Chronic atrial fibrillation/atrial flutter - Continue warfarin per pharmacy, INR today is down to 3.37. - Telemetry monitoring - Rate control History of rheumatic heart disease - Patient appears to have progression of aortic stenosis from mild to severe which may be contributing to her congestive heart failure - Patient also has moderate mitral valve stenosis after balloon angioplasty and has a severely calcified valve. This also likely contributing to her diastolic congestive heart failure. - Continue telemetry monitoring Chronic kidney disease stage III - Patient was given a bolus of normal saline in the emergency room prior to her diagnosis of congestive heart failure. - Continue Lasix 40 mg IV twice a day for now least until 05/28/2016 - Monitor renal function very closely - Monitor electrolytes daily and replace deficiencies as needed. Dementia/expressive aphasia -This is quite evident today. -She lives in a condominium with her 91-year-old -Family are aware that she may need senior living placement or 24-hour care at home. Apparently the family is able to afford that. -She has had a physical therapy evaluation confirming her need for skilled care either at home or a senior living setting. Hypokalemia -Oral K ordered today. Disposition: Patient will need to be hospitalized for another 24 hours for further evaluation and treatment of the above problems. Anticipate she will be stable enough to go home tomorrow. GI Prophylaxis: Proton Pump Inhibitor VTE Prophylaxis: Theraputic Anticoag with Warfarin VTE Mechanical Devices: Intermittant Pneumatic CD Resuscitation Status: CPR: Attempt Resuscitation Guillaume Branch MD May 28, 2016 07:53
--- NOTE | 2016-05-28 13:54 | NUR ---
Social Work- Readiness for Discharge Data: EMR reviewed. Pt is on day 3 of hospitalization for CHF, COPD, UTI per H&P. Pt is not medically stable, anticipate 1-2 more days. Per rounds, pt may participate in another Swallow Eval. ALEC spoke with pt's daughter Pia [phone] at bedside regarding discharge plan. Pia states that pt will discharge home with 24/7 caregivers. Pia has coordinated these caregivers and they are ready whenever pt discharges. Pt to discharge home with Pia to transport via POV. No anticipated discharge needs. SW will continue to follow. Assessment: Pt who would benefit from 24/7 caregivers. Plan: Pt's daughter has coordinated 24/7 care at home. Pt to discharge home with Pia to transport via POV. No anticipated discharge needs. SW will continue to follow. CHAVA Díaz
[2016-05-28 14:01] VITALS: BP 131/64; PULSE 80; RESP 16; O2SAT 96
--- NOTE | 2016-05-28 16:25 | NUR ---
Ambulation/Activity/Diet Patient ambulated with PT and in halls with staff. No agitation or impulsiveness exhibited this shift. Patient is pleasantly confused. Oriented to self only, but follows basic commands and converses. Exhibited some signs of coughing with clears and straws early this am, but has since resolved and has good PO intake with food additionally provided from family. MD feels an additional swallow eval not needed at this time.
[2016-05-28 19:41] VITALS: BP 123/67; PULSE 85; RESP 16; O2SAT 93
[2016-05-28] MEDS ORDERED: Budesonide-Formot 160-4.5 mCg 6.9 Gm Inhaler INHALATION SCH (20:30)
--- NOTE | 2016-05-29 05:00 | NUR ---
Activity Pt continues to be pleasantly confused, alert/oriented to self. Overnight pt was incontinent of urine, wearing brief. Took pills one at a time with water. No complaints of pain from pt and was able to sleep most of shift. [place] alarm in place.
--- NOTE | 2016-05-29 05:48 | PCM.DC.MED ---
Discharge Summary Date of Service May 29, 2016 Dates of Hospitalization Date of Hospital Admission May 25, 2016 at 08:48 Providers: Admitting Physician: Praveen Hughes MD Primary Care Physician: Dusty Lee Attending Physician: Praveen Hughes MD Procedures XRay, CTs & MRIs PROCEDURE: X-RAY CHEST ONE VIEW, PORTABLE ([id number]) INDICATIONS: SHORTNESS OF BREATH TECHNIQUE: One view of the chest was acquired. COMPARISON: [facility], CR, XR CHEST 2VW, 03/23/2016, 11:43. [facility], CR, XR CHEST 1VW (PORTABLE), 02/17/2016, 5:07. FINDINGS: Surgical changes and devices: None. Lungs and pleura: Small pleural effusion is present and there is airspace opacity within the left lung base. Lungs otherwise are clear and hyperinflated. Mediastinum: Mediastinal contours appear normal. Heart size is normal. Bones and chest wall: No suspicious bony lesions. Overlying soft tissues appear unremarkable. IMPRESSION: Small left pleural effusion and basilar airspace opacity consistent with compressive atelectasis versus pneumonia. Correlate clinically. Dictated by: Yang Miner RRA Interpreted: Eliana Don MD on 05/25/2016 at 9 :57 Transcribed by: KEVIN on 05/25/2016 at 10:00 Approved by: Eliana Don MD, PhD on 05/25/2016 at 16:57 Cardiac Echo Impression Echocardiogram Report Name: SEJAL GILL JStudy Date: 05/25/2016 Heigh t: 65 in Hospital Exam Location: [facility] Weigh t: 100 lb Gender: Female BSA: 1.5 m2 : 1930 Age: 85 yrs BP: 1 60/82 mmHg Reason For Study: Congestive Heart Failure Ordering Physician: HOSPITALIST [facility] Performed By: Marianne Weeks Referring Physician: PRAVEEN HUGHES Interpretation Summary The left ventricular cavity is small. There is mild concentric left ventricular hypertrophy. The ejection fraction is estimated to be 60-65%. Diastolic function could not be accurately assessed due to atrial fibrillation. The right ventricle is normal in size and function. The mitral valve leaflets are severely calcified. There is moderate calcification extending into the subvalvular apparatus. There is moderate mitral stenosis. The mitral valve mean gradient is 5.7 mmHg. There is trace mitral regurgitation. The aortic valve is moderately calcified. The aortic valve mean gradient is 19.9 mmHg. There is moderate to severe aortic stenosis. There is moderate aortic regurgitation. The left atrium is severely dilated. Spontaneous contrast in LA. The tricuspid valve is normal in structure and function. There is mild tricuspid regurgitation. The right ventricular systolic pressure is estimated at 26 mmHg assuming a right atrial pressure of 3 mm Hg. There is no pericardial effusion. There is a moderate left-sided pleural effusion. Compared to the previous study on 08/14/2015, the pleural effusion is new. Brief History The patient is an 85 year old female with a history of chronic atrial fibrillation on warfarin, rheumatic heart disease complicated by mitral stenosis , CKD stage 3, and HTN presents to the ER via EMS due to increasing SOB for several weeks. EMS states that she was diagnosed with pneumonia in February 2016 and that symptoms have not completely resolved since. Associated symptoms include productive cough and headache. Patient denies fever, chest pain, dysuria , and bowel/urinary symptoms. She now states that she had weakness. Patient apparently had an altered mental status and her called EMS services. Medics reported that the patient's O2 saturation of 88% on room air, up to 95% with 2L O2. Patient has home O2 but there is question as to whether or not the patient was using it properly. She lives at home with her . Apparently the patient's was awakened by her upon EMS arrival. Patient was evaluated treated in the emergency room by Dr. Marbella Chan. Dr. Chan states that the patient presented with increased confusion and increased dyspnea and therefore the possibility of sepsis was considered and patient was given a fluid bolus as well his IV antibiotics for community acquired pneumonia although details are sorted out. As labs and images returned white count was found to be normal and she was hypotensive as is her baseline. Altered mental status was closer to baseline and exacerbated by hypoxia likely not to sepsis. Patient was felt to have had acute decompensation of her heart failure with significant volume overload. There is slight elevation in troponin likely subsequent to heart failure rather than non-ST elevated [place]. Urinalysis showed white blood cells and she had received ceftriaxone and urine culture was ordered. Given the above acute on chronic respiratory failure likely due to acute on chronic congestive heart failure patient was admitted to the hospital service. Hospital Course The patient is an 85 year old female with a history of chronic atrial fibrillation on warfarin, rheumatic heart disease complicated by mitral stenosis , CKD stage 3, and HTN presents to the ER via EMS due to increasing SOB for several weeks. Acute on chronic respiratory failure present on admission, improving - Patient found to have hypoxia, and confusion due to hypoxia, with shortness of breath secondary to congestive heart failure and left pleural effusion with atelectasis - This appears to be primarily due to Acute on chronic diastolic congestive heart failure - Echocardiogram ordered and results are as above - Continue IV Lasix 40 mg twice a day , potassium today is 3.2, BNP is up again to 10,422, TSH is 0.257 - Oxygen - Solu-Medrol 125 mg IV were given in the emergency room we have held further doses. Chronic atrial fibrillation/atrial flutter - Continue warfarin per pharmacy, INR today is down to 3.37. - Telemetry monitoring - Rate control History of rheumatic heart disease - Patient appears to have progression of aortic stenosis from mild to severe which may be contributing to her congestive heart failure - Patient also has moderate mitral valve stenosis after balloon angioplasty and has a severely calcified valve. This also likely contributing to her diastolic congestive heart failure. - Continue telemetry monitoring Chronic kidney disease stage III - Patient was given a bolus of normal saline in the emergency room prior to her diagnosis of congestive heart failure. - Continue Lasix 40 mg IV twice a day for now least until 05/28/2016 - Monitor renal function very closely - Monitor electrolytes daily and replace deficiencies as needed. Dementia/expressive aphasia -This is quite evident today. -She lives in a condominium with her 91-year-old -Family are aware that she may need fci placement or 24-hour care at home. Apparently the family is able to afford that. -She has had a physical therapy evaluation confirming her need for skilled care either at home or a fci setting. Hypokalemia -Oral K ordered today. Disposition: Patient will need to be hospitalized for another 24 hours for further evaluation and treatment of the above problems. Anticipate she will be stable enough to go home tomorrow. Exam Vital Signs (Last) Date Time Temp Pulse Resp B/P Pulse Ox O2 Delivery O2 Flow Rate FiO2 05/28/16 21:20 Supplement Oxygen 05/28/16 19:41 36.7 85 16 123/67 93 2.00 Test 05/25/16 06:30 05/25/16 07:21 05/25/16 07:35 05/26/16 05:20 Procalcitonin 0.41ng/mL (0.00-0.08) Urine Color Straw (YELLOW) Urine Appearance Hazy (CLEAR,HAZY) Urine pH 7.0 (5.0-8.0) Urine Specific [place] 1.020 (1.003-1.035) Urine Protein 100mg/dL (NEG,TRACE) Urine Glucose (UA) Negativemg/dL (NEGATIVE) Urine Ketones Negativemg/dL (NEGATIVE) Urine Occult Blood Trace (NEGATIVE) Urine Nitrite Negative (NEGATIVE) Urine Bilirubin Negative (NEGATIVE) Urine Urobilinogen Normalmg/dL (NORMAL) Urine Leukocyte Esterase Trace (NEGATIVE) Urine RBC 0-2/hpf (0-2) Urine WBC 11-50/hpf (0-5) Urine Epithelial Cells Occasional/hpf (NONE-MOD) Urine Crystals None seen (NONE SEEN) Urine Bacteria Few/hpf (NONE-FEW) Urine Hyaline Casts None/lpf (NONE) Urine Granular Casts None seen (NONE SEEN) Urine Waxy Casts None seen (NONE SEEN) Urine Red Blood Cell Casts None seen (NONE SEEN) Urine White Blood Cell Casts None seen (NONE SEEN) Urine Mucus None seen (None Seen) Urine Trichomonas None seen (NONE SEEN) Urine Yeast None (NONE SEEN) Urinalysis Comment None Urine Culture Reflexed Indicated Lactic Acid Level 1.3mmol/L (0.4-2.0) Hemoglobin A1c 6.3% (4.8-5.6) Phosphorus Level 4.2mg/dL (2.5-4.9) Magnesium Level 1.9mg/dL (1.6-2.6) Triglycerides Level 86mg/dL (0-149) Cholesterol Level 153mg/dL (100-199) LDL Cholesterol, Calculated 89.800mg/dL (0-99) VLDL Cholesterol 17.200mg/dL HDL Cholesterol 46mg/dL (>39) Cholesterol/HDL Ratio 3.33 (0.0-4.4) Thyroid Stimulating Hormone (TSH) 0.257uIU/mL (0.450-4.500) Test 05/27/16 01:10 05/28/16 04:57 Troponin T 0.017ug/L (0.0-0.011) White Blood Count 14.7th/mm3 (3.8-10.1) Red Blood Count 4.90mil/mm3 (3.90-5.20) Hemoglobin 14.6g/dL (12.0-15.6) Hematocrit 45.1% (35.0-46.0) Mean Corpuscular Volume 92.0fL (81-100) Mean Corpuscular Hemoglobin 29.8pg (27.0-35.0) Mean Corpuscular Hemoglobin Concent 32.4% (32.0-37.0) Red Cell Distribution Width 15.4% (12.3-15.4) Platelet Count 259bil/L (150-400) Neutrophils (%) (Auto) 79.0% (40-74) Lymphocytes (%) (Auto) 10.4% (14-46) Monocytes (%) (Auto) 9.8% (4-12) Eosinophils (%) (Auto) 0.2% (0-5) Basophils (%) (Auto) 0.3% (0-3) Prothrombin Time 37.0sec (8.1-12.5) Prothromb Time International Ratio 3.37ratio Sodium Level 141mEq/L (134-144) Potassium Level 3.2mEq/L (3.5-5.2) Chloride Level 93mEq/L (97-108) Carbon Dioxide Level 31mmol/L (18-29) Blood Urea Nitrogen 62mg/dL (8-27) Creatinine 1.75mg/dL (0.57-1.00) Estimat Glomerular Filtration Rate 40mL/min (>59) Glucose Level 135mg/dL (60-99) Calcium Level 9.6mg/dL (8.5-10.1) Total Bilirubin 0.4mg/dL (0.0-1.2) Aspartate Amino Transf (AST/SGOT) 30U/L (0-50) Alanine Aminotransferase (ALT/SGPT) 22U/L (0-32) Alkaline Phosphatase 122U/L (25-165) Pro-B-Type Natriuretic Peptide 36375gb/mL (0-738) Total Protein 7.3g/dL (6.4-8.4) Albumin 3.5g/dL (3.4-5.0) Microbiology Results Blood and urine cultures are pending from the emergency room. Discharge Medications Discharge Medications Atenolol (Atenolol) 100 Mg Tablet 100 MG PO DAILY (Reported) Atorvastatin Calcium (Atorvastatin Calcium) 20 Mg Tablet 20 MG PO HS (Reported) Lactose-Reduced Food (Ensure Original) 237 Ml Liquid 237 ML PO DAILY (Reported) Losartan Potassium (Losartan Potassium) 50 Mg Tablet 50 MG DAILY (Reported) Multivits-Min/Iron/FA/Lutein (Centrum Silver Women Tablet) 8 Mg Iron-400 Mcg- 300 Mcg Tablet 1 EACH PO DAILY (Reported) Warfarin Sodium (Warfarin Sodium) 5 Mg Tablet 5 MG PO DAILY (Reported) Warfarin Sodium (Warfarin Sodium) 2.5 Mg Tablet 2.5 MG PO DAILY (Reported) Mary Vogt DO May 29, 2016 05:48
[2016-05-29 06:18] VITALS: BP 152/72; PULSE 82; RESP 16; O2SAT 94
[2016-05-29 06:32] LABS: BASOPHILS % (AUTO) 0.3 % (0-3); MONOCYTES % (AUTO) 8.5 % (4-12); Mean Corpuscular Hemoglobin 29.4 pg (27.0-35.0); Mean Corpuscular Volume 91.9 fL (81-100); NEUTROPHILS % (AUTO) 80.5 % (40-74); Platelet Count 270 bil/L (150-400)
[2016-05-29 06:58] LABS: INR 2.61 ratio
[2016-05-29] MEDS: Pantoprazole 20 mg ER24 Tablet PO SCH (08:28)
[2016-05-29] MEDS: Furosemide 10 mg/mL 4 mL Inj IVPUSH SCH ×2 (08:29→21:14)
[2016-05-29] MEDS: cefTRIAXone 2,000 mg/D5W 50 mL IV Minibag Plus IV SCH ×2 (08:29)
[2016-05-29] MEDS: Fluticasone-Salmeterol 500-50 Inhaler INHALATION SCH (08:30)
--- NOTE | 2016-05-29 12:17 | PCM.PHAPRO ---
Progress WARFARIN DOSING PER PHARMACY 2-May 3-May 4-May 5-May 6-May 2.73 4.05 4.61 3.37 2.61 1.32 0.56 -1.24 -0.76 5 mg HOLD HOLD 1MG P: With rapidly falling INR, will give one dose of warfarin 2mg PO tonight. Pharmacy will continue to monitor INR/CBC/Signs and symptoms of bleeding Amber Rosales PharmD May 29, 2016 12:17
[2016-05-29 13:20] VITALS: BP 101/64; PULSE 79; RESP 17; O2SAT 95
--- NOTE | 2016-05-29 14:04 | NUR ---
Data & Assessment: Damage Prevention Coordinator met with patient and patient's daughter at bedside to discuss discharge planning. Patient will discharge home with 24-hr care. SW also discussed that patient will also need a walker for home and gave choices for DME. Patient and patient's daughter were in agreement with the patient's DME being ordered from an in network provider. UR specialist will order patient's walker form [facility]. SW will continue to follow. Plan: Patient will discharge home with 24-hour care and DME will be ordered from [facility]. Patient will discharge home via POV. SW will continue to follow. Bharati Aguayo LMSW, ACSia
--- NOTE | 2016-05-29 14:16 | NUR ---
Faxed facesheet and script to [facility] per [employer] Addendum: 05/29/16 at 1529 by VINCENZO MENDEZ CM Called [facility] and spoke with Rebecca, this patient received a walker in August 2012, so at this time she is not eligible for a new walker. Also as I told the [employer] a bedside commode is never covered and it is $110.00 to buy or $23.00 per month to rent. Updated [employer]
--- NOTE | 2016-05-29 15:41 | DRSVH ---
PROCEDURE: X-RAY CHEST, TWO VIEWS ([id number]) INDICATIONS: CONGESTIVE HEART FAILURE TECHNIQUE: 2 views of the chest were acquired. COMPARISON: [facility], CR, XR CHEST 2VW, 05/26/2016, 12:31. FINDINGS: Surgical changes and devices: None. Lungs and pleura: Small left-sided pleural effusion is stable compared to prior examination. Opacity in the posterior and mesial aspect of the right lung slightly decreased in size compared to 05/26/16. L ungs are hyperinflated. Mediastinum: Mediastinal contours are normal. Heart size is enlarged. Bones and chest wall: No suspicious bony abnormalities. Soft tissues appear unremarkable. IMPRESSION: 1. Small left-sided pleural effusion stable compared to 05/26/16. 2. Focal opacity in the right lower lobe suspicious for pneumonia. Dictated by: Eliana Don MD, PhD on 05/29/2016 at 15:34 Approved by: Eliana Don MD, PhD on 05/29/2016 at 15:36
--- NOTE | 2016-05-29 17:47 | NUR ---
Activity Pt denies pain throughout shift. Oriented to self only. Pt has a [place] alarm but has not tried to ambulate by herself. SBA to BSC. Pt continues to be on 2L O2 (O2 in mid nineties) and continues to deny SOB. Bed locked in low position and call light within reach. Will continue to monitor.
[2016-05-29 19:52] VITALS: BP 113/60; PULSE 76; RESP 16; O2SAT 96
[2016-05-30] VITALS (7 sets, daily range): BP systolic 93–146; BP diastolic 54–76; PULSE 54–89; RESP 16–24; O2SAT 93–98
--- NOTE | 2016-05-30 01:28 | PCM.PNMED ---
Subjective Date of Service May 30, 2016 Subjective Patient is sitting in the room with campground caretaker and daughter. All of them said patient had audible, noisy breathing and she continues to be on oxygen. Patient has needed oxygen continuously after her last hospitalization but gradually improved to the point she would only use it at night. Patient's director airport operations Dr. Werner apparently told patient she would not be a good surgical candidate. Patient and her daughter understand that she is in a frail state and are willing to consider POLST form. Patient had a brief episode of LLQ cramping this AM but it passed and she declined tylenol. She has had no fevers or chills , Tolerating her diet ok. Denies diarrhea. Daughter has expressed some concern that patient had some cognitive decline in the recent months. Exam Vital Signs Vital Sign - Last Date Time Temp Pulse Resp B/P Pulse Ox O2 Delivery O2 Flow Rate FiO2 05/29/16 21:15 Supplement Oxygen 05/29/16 19:52 36.6 76 16 113/60 96 2.00 Intake and Output 05/29/16 05/29/16 05/30/16 Cumulative From/Thru 15:00 23:00 07:00 05/25/16 08:18 - 05/29/16 21:15 Intake Total 760 ml 4482 ml Output Total 550 ml 4875 ml Balance 210 ml -393 ml Intake Oral 760 ml 3862 ml IV Total 620 ml Output Urine Total 550 ml 4068 ml Urine/Stool Mix 807 ml # Voids 1 10 # Bowel Movements 2 13 Exam Eyes: [place] conjunctivae. No ptosis Neck: No masses, trachea midline, no thyromegaly, neg for JVD Lungs: Increased work of breathing, neg for wheezing, RLL crackles CV: 2+ diastolic murmur best heard at the apex, irregular rate GI: Soft, mild LLQ tenderness with no hepatosplenomegaly Skin: Warm and dry. No rash, lesions or ulcers Psych: mood is pleasant, affect appropriate Lab and Diagnostics Result Diagram: 05/29/16 0505/29/16 05 Microbiology Blood and urine cultures are pending from the emergency room. X-Rays, CTs and MRIs PROCEDURE: X-RAY CHEST ONE VIEW, PORTABLE ([id number]) INDICATIONS: SHORTNESS OF BREATH TECHNIQUE: One view of the chest was acquired. COMPARISON: [facility], CR, XR CHEST 2VW, 03/23/2016, 11:43. [facility], CR, XR CHEST 1VW (PORTABLE), 02/17/2016, 5:07. FINDINGS: Surgical changes and devices: None. Lungs and pleura: Small pleural effusion is present and there is airspace opacity within the left lung base. Lungs otherwise are clear and hyperinflated. Mediastinum: Mediastinal contours appear normal. Heart size is normal. Bones and chest wall: No suspicious bony lesions. Overlying soft tissues appear unremarkable. IMPRESSION: Small left pleural effusion and basilar airspace opacity consistent with compressive atelectasis versus pneumonia. Correlate clinically. Dictated by: Yang Miner RRA Interpreted: Eliana Don MD on 05/25/2016 at 9 :57 Transcribed by: KEVIN on 05/25/2016 at 10:00 Approved by: Eliana Don MD, PhD on 05/25/2016 at 16:57 Cardiac Echo Impressions Echocardiogram Report Name: SEJAL GILL JStudy Date: 05/25/2016 Heigh t: 65 in Hospital Exam Location: [facility] Weigh t: 100 lb Gender: Female BSA: 1.5 m2 : 1930 Age: 85 yrs BP: 1 60/82 mmHg Reason For Study: Congestive Heart Failure Ordering Physician: HOSPITALIST [facility] Performed By: Marianne Weeks Referring Physician: RONEN DIAZ Interpretation Summary The left ventricular cavity is small. There is mild concentric left ventricular hypertrophy. The ejection fraction is estimated to be 60-65%. Diastolic function could not be accurately assessed due to atrial fibrillation. The right ventricle is normal in size and function. The mitral valve leaflets are severely calcified. There is moderate calcification extending into the subvalvular apparatus. There is moderate mitral stenosis. The mitral valve mean gradient is 5.7 mmHg. There is trace mitral regurgitation. The aortic valve is moderately calcified. The aortic valve mean gradient is 19.9 mmHg. There is moderate to severe aortic stenosis. There is moderate aortic regurgitation. The left atrium is severely dilated. Spontaneous contrast in LA. The tricuspid valve is normal in structure and function. There is mild tricuspid regurgitation. The right ventricular systolic pressure is estimated at 26 mmHg assuming a right atrial pressure of 3 mm Hg. There is no pericardial effusion. There is a moderate left-sided pleural effusion. Compared to the previous study on 08/14/2015, the pleural effusion is new. Assessment & Plan The patient is an 85 year old female with a history of chronic atrial fibrillation on warfarin, rheumatic heart disease complicated by mitral stenosis , CKD stage 3, and HTN presents to the ER via EMS due to increasing SOB for several weeks. Acute on chronic respiratory failure present on admission, improving - Patient found to have hypoxia, and confusion due to hypoxia, with shortness of breath secondary to congestive heart failure and left pleural effusion with atelectasis - This appears to be primarily due to Acute on chronic diastolic congestive heart failure - Echocardiogram ordered and results are as above - Called her director airport operations today and he thinks daily dose of lasix is not a bad idea. We will consider a cardiology consult. - Continue IV Lasix 40 mg twice a day , potassium today is 3.6, TSH is 0.257 - Oxygen - Solu-Medrol 125 mg IV were given in the emergency room we have held further doses. - Ordered CXR due to worsened symptoms today Chronic atrial fibrillation/atrial flutter - Continue warfarin per pharmacy, INR today is down to 2.6. - Telemetry monitoring - Rate control History of rheumatic heart disease - Patient appears to have progression of aortic stenosis from mild to severe which may be contributing to her congestive heart failure - Patient also has moderate mitral valve stenosis after balloon angioplasty and has a severely calcified valve. This also likely contributing to her diastolic congestive heart failure. - Continue telemetry monitoring - Will consider cardiology consult Chronic kidney disease stage III - Patient was given a bolus of normal saline in the emergency room prior to her diagnosis of congestive heart failure. - Continue Lasix 40 mg IV twice a day for now. - Monitor renal function very closely - Monitor electrolytes daily and replace deficiencies as needed. Dementia/expressive aphasia -This is quite evident today. -She lives in a condominium with her 91-year-old -Family are aware that she may need residential placement or 24-hour care at home. Apparently the family is able to afford that. -She has had a physical therapy evaluation confirming her need for skilled care either at home or a residential setting. Hypokalemia -Resolved Disposition: Patient will need to be hospitalized for another 24 hours for further evaluation and treatment of the above problems. Anticipate she will be stable enough to go home tomorrow. Pain Evaluation: Adequate Pain Control GI Prophylaxis: Proton Pump Inhibitor VTE Prophylaxis: Theraputic Anticoag with Warfarin VTE Mechanical Devices: Intermittant Pneumatic CD Resuscitation Status: CPR: Attempt Resuscitation Mary Vogt DO May 30, 2016 01:28 Mary Vogt DO May 30, 2016 01:28
--- NOTE | 2016-05-30 05:29 | NUR ---
Activity Pt continues on 2L O2 overnight with O2 sats mid 90s, denies sob. Pt was incontinent of urine and stool this shift, Pt able to turn self but also turned with each brief change. No complaints of abdominal discomfort from pt. [place] alarm in place.
[2016-05-30 05:47] LABS: BASOPHILS % (AUTO) 0.7 % (0-3); EOSINOPHILS % (AUTO) 3.2 % (0-5); MONOCYTES % (AUTO) 9.8 % (4-12); Mean Corpuscular Hemoglobin 30.4 pg (27.0-35.0); Mean Corpuscular Volume 92.6 fL (81-100); NEUTROPHILS % (AUTO) 74.9 % (40-74); Platelet Count 241 bil/L (150-400)
[2016-05-30 06:07] LABS: INR 2.17 ratio
[2016-05-30] MEDS: Fluticasone-Salmeterol 500-50 Inhaler INHALATION SCH ×3 (08:30→22:18)
[2016-05-30] MEDS ORDERED: Albuterol 2.5 mg/3 mL Inhalation Solution NEB PRN (08:30)
[2016-05-30] MEDS ORDERED: levoFLOXacin Inj 500 MG in IV Premix 1 EACH IV SCH (08:30)
[2016-05-30] MEDS ORDERED: Levofloxacin 750 mg/150 mL D5W IV ONE (10:35)
--- NOTE | 2016-05-30 11:31 | PCM.PHAPRO ---
Progress Date of Service: May 30, 2016 WARFARIN DOSING PER PHARMACY 4-May 5-May 6-May 7-May 4.61 3.37 2.61 2.17 0.56 -1.24 -0.76 -0.44 HOLD 1MG 2 MG 3 INR back WNL will give a ot dose of 3 mg tonight to see how patient reacts and ideally get her back to her home dose afterwards Also with addition of levaquin today anticipating an effect on the inr which is why I am dosing low Pharmacy will continue to monitor INR/CBC/signs and symptoms of bleeding Pharmacy appreciates consult and will continue to monitor. THANKS! Rena Pedro PharmD May 30, 2016 11:31
[2016-05-30] MEDS: Pantoprazole 20 mg ER24 Tablet PO SCH (12:04)
[2016-05-30] MEDS: MethylprednisoLONE Sodium Succinate 40 mg/mL Inj IVPUSH SCH ×2 (12:13→22:19)
[2016-05-30] MEDS ORDERED: 0.9% Sodium Chloride 100 ML ONE (12:37)
--- NOTE | 2016-05-30 13:14 | NUR ---
NUTRITION FOLLOW UP: ASSESS:85 YO female admitted with hypoxia and confusion due with shortness of breath, evidence of congestive heart failure and left pleural effusion with atelectasis, primarily due to acute on chronic diastolic congestive heart failure exacerbation. Patient appears to have progression of aortic stenosis to mild to severe which may be contributing to her congestive heart failure--per cardiology pt is not a surgical candidate. Pt po intake remains fair at 25-50% x 24hrs. Of note, she has had a slow but progressive weight loss of 7.2 kg x 9.5 months = 13.56%, with a BMI of 17.0 kg/m2. Code status: DNR / DNI. 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 DIET:Heart healthy. PO 25-50% x 24hrs. LABS: Reviewed. BUN 70, Cr 1.72, Glu 136, Alb 3.5; Jimmy 17 MEDICATIONS: Reviewed. NUTRITION FOCUSED PHYSICAL ASSESSMENT: GI symptoms / stool: BM x 1 (05/30).Jimmy: 17. Skin Integrity: No issues documented. ANTHROPOMETRICS: Current Wt: 45.8 kgBMI: 17.3 kg/m2.Admit weight: 47.5 kg IBW: 54.5 kg (84.2% IBW) ESTIMATED NEEDS (UNDERWEIGHT, CKD): Calories: 1377 - 1607 kcal (30 - 35 kcal / kg BW) Protein: 55 - 69 g protein (1.2 - 1.5 g / kg BW) Fluids: 1148 mL (Approx. 25 mL/kg BW) NUTRITION DIAGNOSIS: 1)Inadequate oral intake related to inability to consume sufficient energy, as evidenced by inadequate social needs, dementia, slow but progressive weight loss--MILDLY IMPROVING. INTERVENTION: 1) Continue Ensure and Magic Cups to trays during admit. MONITOR/EVALUATE: Diet tolerance, PO intake, labs, GI/nutrition status. Follow up per moderate nutrition risk guidelines.
[2016-05-30] MEDS: Albuterol-Ipratropium 3 mL Inhalation Solution NEB SCH ×4 (13:34→23:30)
--- NOTE | 2016-05-30 18:57 | NUR ---
Activity Pt able to sit in chair for breakfast, but returned to bed shortly before lunch. Able to ambulate in room and use BSC, brief in place for incontinent bowels. Pt alert to self and needs direction when ambulating. Pt able to take pills whole, one at a time in applesauce. Pt has 2L NC on and uses this at home. Encouraged pt when eating, but still only eating around 25% of meals.
--- NOTE | 2016-05-30 20:29 | PCM.PNMED ---
Subjective Date of Service May 30, 2016 Subjective Patient states she is feeling better. She says she has not urinated much today however. She denies fevers, chills, poor appetite and nausea. She does not recall ever being on the lasix. She is coughing but not expectorating much. She is incontinent of urine so unclear how much she actually diureses. Exam Vital Signs Vital Sign - Last Date Time Temp Pulse Resp B/P Pulse Ox O2 Delivery O2 Flow Rate FiO2 05/30/16 19:41 70 20 93 Nasal Cannula 2.00 05/30/16 14:32 36.0 93/54 Intake and Output 05/29/16 05/29/16 05/30/16 Cumulative From/Thru 15:00 23:00 07:00 05/25/16 08:18 - 05/30/16 06:10 Intake Total 760 ml 200 ml 4682 ml Output Total 550 ml 1282 ml 6157 ml Balance 210 ml -1082 ml -1475 ml Intake Oral 760 ml 200 ml 4062 ml IV Total 620 ml Output Urine Total 550 ml 4068 ml Urine/Stool Mix 1282 ml 2089 ml # Voids 1 10 # Bowel Movements 2 3 16 Exam General: NAD, sititing up in bed HEENT: NCAT Heart: Grade 2+ diastolic murmur, irregular rate Lungs: Rales can be heard b/l Abd: Flat, non-tender Ext: Neg for edema Neuro: No focal deficits IVs and Medications IV Fluids none Medications Reviewed: Medications were reviewed in detail Lab and Diagnostics Result Diagram: 05/30/16 0525 05/30/16 0525 Microbiology Blood and urine cultures are pending from the emergency room. X-Rays, CTs and MRIs PROCEDURE: X-RAY CHEST ONE VIEW, PORTABLE ([id number]) INDICATIONS: SHORTNESS OF BREATH TECHNIQUE: One view of the chest was acquired. COMPARISON: [facility], CR, XR CHEST 2VW, 03/23/2016, 11:43. [facility], CR, XR CHEST 1VW (PORTABLE), 02/17/2016, 5:07. FINDINGS: Surgical changes and devices: None. Lungs and pleura: Small pleural effusion is present and there is airspace opacity within the left lung base. Lungs otherwise are clear and hyperinflated. Mediastinum: Mediastinal contours appear normal. Heart size is normal. Bones and chest wall: No suspicious bony lesions. Overlying soft tissues appear unremarkable. IMPRESSION: Small left pleural effusion and basilar airspace opacity consistent with compressive atelectasis versus pneumonia. Correlate clinically. Dictated by: Yang Miner RRA Interpreted: Eliana Don MD on 05/25/2016 at 9 :57 Transcribed by: KEVIN on 05/25/2016 at 10:00 Approved by: Eliana Don MD, PhD on 05/25/2016 at 16:57 Cardiac Echo Impressions Echocardiogram Report Name: SEJAL GILL JStudy Date: 05/25/2016 Heigh t: 65 in Hospital Exam Location: [facility] Weigh t: 100 lb Gender: Female BSA: 1.5 m2 : 1930 Age: 85 yrs BP: 1 60/82 mmHg Reason For Study: Congestive Heart Failure Ordering Physician: HOSPITALIST [facility] Performed By: Marianne Weeks Referring Physician: RONEN DIAZ Interpretation Summary The left ventricular cavity is small. There is mild concentric left ventricular hypertrophy. The ejection fraction is estimated to be 60-65%. Diastolic function could not be accurately assessed due to atrial fibrillation. The right ventricle is normal in size and function. The mitral valve leaflets are severely calcified. There is moderate calcification extending into the subvalvular apparatus. There is moderate mitral stenosis. The mitral valve mean gradient is 5.7 mmHg. There is trace mitral regurgitation. The aortic valve is moderately calcified. The aortic valve mean gradient is 19.9 mmHg. There is moderate to severe aortic stenosis. There is moderate aortic regurgitation. The left atrium is severely dilated. Spontaneous contrast in LA. The tricuspid valve is normal in structure and function. There is mild tricuspid regurgitation. The right ventricular systolic pressure is estimated at 26 mmHg assuming a right atrial pressure of 3 mm Hg. There is no pericardial effusion. There is a moderate left-sided pleural effusion. Compared to the previous study on 08/14/2015, the pleural effusion is new. Assessment & Plan The patient is an 85 year old female with a history of chronic atrial fibrillation on warfarin, rheumatic heart disease complicated by mitral stenosis , CKD stage 3, and HTN presents to the ER via EMS due to increasing SOB for several weeks. Acute on chronic respiratory failure present on admission, improving - Patient found to have hypoxia, and confusion due to hypoxia, with shortness of breath secondary to congestive heart failure and left pleural effusion with atelectasis - This appears to be primarily due to Acute on chronic diastolic congestive heart failure - Echocardiogram ordered and results are as above - Called her customs import specialist today and he thinks daily dose of lasix is not a bad idea. We will consider a cardiology consult. - Continue IV Lasix 40 mg twice a day , potassium today is 3.6, TSH is 0.257 - Oxygen - Solu-Medrol 125 mg IV were given in the emergency room we have held further doses. - Ordered CXR due to worsened symptoms today: Showed a developing RLL PNA: Switched her to Levaquin from Ceftriaxone, solumedrol, duonebs and albuterol are ordered. Urine strep and legionella are also ordered. Chronic atrial fibrillation/atrial flutter - Continue warfarin per pharmacy, INR today is down to 2.1 - Telemetry monitoring - Rate control History of rheumatic heart disease - Patient appears to have progression of aortic stenosis from mild to severe which may be contributing to her congestive heart failure - Patient also has moderate mitral valve stenosis after balloon angioplasty and has a severely calcified valve. This also likely contributing to her diastolic congestive heart failure. - Continue telemetry monitoring - Will consider cardiology consult Chronic kidney disease stage III - Patient was given a bolus of normal saline in the emergency room prior to her diagnosis of congestive heart failure. - Continue Lasix 40 mg IV twice a day for now: dose cut in half 05/31/15 - Monitor renal function very closely - Monitor electrolytes daily and replace deficiencies as needed. Dementia/expressive aphasia -This is quite evident today. -She lives in a condominium with her 91-year-old -Family are aware that she may need prison placement or 24-hour care at home. Apparently the family is able to afford that. -She has had a physical therapy evaluation confirming her need for skilled care either at home or a prison setting. Hypokalemia -Resolved Disposition: Patient will need to be hospitalized for another 24 hours for further evaluation and treatment of the above problems. Anticipate she will be stable enough to go home tomorrow with o/p cardiology follow up.. GI Prophylaxis: Proton Pump Inhibitor VTE Prophylaxis: Theraputic Anticoag with Warfarin VTE Mechanical Devices: Intermittant Pneumatic CD Resuscitation Status: CPR: Attempt Resuscitation Mary Vogt DO May 30, 2016 20:28
[2016-05-30] MEDS: Furosemide 10 mg/mL 4 mL Inj IVPUSH SCH (22:19)
[2016-05-31 04:20] VITALS: BP 157/74; PULSE 85; RESP 18; O2SAT 93
[2016-05-31] MEDS: Albuterol-Ipratropium 3 mL Inhalation Solution NEB SCH ×4 (04:30→15:27)
--- NOTE | 2016-05-31 04:47 | NUR ---
Activity/refusal Pt reported that she did not like the nebulizer treatment because it "scared" her. Attempted to educate pt about importance but she still refused. Pt continues on 2L O2 overnight with O2 sats mid 90s, denies sob. Right AC IV infiltrated and new IV placed on left forearm. Pt able to use BSC overnight without incontinence. No complaints of pain from pt. [place] alarm in place.
[2016-05-31 06:20] LABS: BASOPHILS % (AUTO) 0.1 % (0-3); EOSINOPHILS % (AUTO) 0.1 % (0-5); MONOCYTES % (AUTO) 1.3 % (4-12); Mean Corpuscular Hemoglobin 29.8 pg (27.0-35.0); Mean Corpuscular Volume 91.9 fL (81-100); Platelet Count 240 bil/L (150-400)
[2016-05-31 06:33] LABS: INR 2.12 ratio
[2016-05-31] MEDS: Fluticasone-Salmeterol 500-50 Inhaler INHALATION SCH ×2 (08:30→20:30)
[2016-05-31] MEDS: Pantoprazole 20 mg ER24 Tablet PO SCH (08:38)
[2016-05-31] MEDS: MethylprednisoLONE Sodium Succinate 40 mg/mL Inj IVPUSH SCH (08:40)
[2016-05-31] MEDS: Furosemide 10 mg/mL 4 mL Inj IVPUSH SCH (08:40)
[2016-05-31 10:58] VITALS: PULSE 78; RESP 20; O2SAT 92
--- NOTE | 2016-05-31 11:15 | PCM.PHAPRO ---
Progress Date of Service: May 31, 2016 WARFARIN DOSING PER PHARMACY 3.37 2.61 2.17 2.12 -1.24 -0.76 -0.44 -0.05 1MG 2 MG 3 ~ INR still WNL will give a ot dose of 3 mg tonight to see how patient reacts, if INR stays within range will put her back on home dose of 2.5 mg tomorrow Pharmacy will continue to monitor INR/CBC/signs and symptoms of bleeding Pharmacy appreciates consult and will continue to monitor. THANKS! [facility] Rena Yao PharmD May 31, 2016 11:15 Rena Yao PharmD May 31, 2016 11:15
--- NOTE | 2016-05-31 13:26 | NUR ---
spiritual care: follow up conversational/caring visit. pt pleasant, a bit disoriented, talked of her concern/hopes about her dtr and dr's reports. pt agreeable to wear oxygen, but needs gentle reminders to keep it on. pt's caregiver attentive.
[2016-05-31 13:30] VITALS: BP 117/66; PULSE 89; RESP 18; O2SAT 98
[2016-05-31 15:28] VITALS: PULSE 85; RESP 24; O2SAT 98
--- NOTE | 2016-05-31 16:45 | NUR ---
Social Work Note/Readiness for Discharge: D&A: Received call from pt.'s daughter/Pia ph# [phone] she is requesting update on d/c date? Daughter confirms that pt. will have 24/7 care, but needs to know when she will be leaving so that she can safely coordinate. Also received call from Latrice from [employer] [facility]# [phone] she is also requesting anticipated d/c date. As of today at 4:30pm no progress note from MD in EMR. P: STREET ENGINEER to follow closely and provide both daughter and caregiver time to coordinate assistance for patient 24/7 at home. CHAVA Rodriguez
--- NOTE | 2016-05-31 18:21 | NUR ---
Confusion / IV Pt continues to be confused and forgetful. Although she has used her call light a few times today and does seem more alert and communicative. Pt did pull her IV out and it was found on table next ot her. No bleeding noted. Per MD OK to leave out IV. Care continues
--- NOTE | 2016-05-31 18:31 | PCM.PNMED ---
Subjective Date of Service May 31, 2016 Subjective Patient is feeling better today though she can not tell how much. She had no fevers, cough. She denies overnight fevers and chills. She states she is ambulating. No other concerns today. Exam Vital Signs Vital Sign - Last Date Time Temp Pulse Resp B/P Pulse Ox O2 Delivery O2 Flow Rate FiO2 05/31/16 15:28 85 24 98 Nasal Cannula 2.00 05/31/16 13:30 36.3 117/66 Intake and Output 05/30/16 05/30/16 05/31/16 Cumulative From/Thru 14:59 22:59 06:59 05/25/16 08:18 - 05/31/16 06:17 Intake Total 593 ml 100 ml 5375 ml Output Total 400 ml 650 ml 7207 ml Balance 193 ml -550 ml -1832 ml Intake Oral 440 ml 100 ml 4602 ml IV Total 153 ml 773 ml Output Urine Total 400 ml 650 ml 5118 ml Urine/Stool Mix 2089 ml # Voids 2 12 # Bowel Movements 1 17 Exam General: NAD, sitting up in chair. HEENT: NCAT Heart: 2+ diastolic murmur, radiation to axilla, irregular rate Lungs: R LL crackles, neg for wheezing Abd: Flat, non-tender, normal bowel sounds ExT: Neg for edema Psych: Neg for anxiety IVs and Medications IV Fluids None Medications Reviewed: Medications were reviewed in detail Lab and Diagnostics Laboratory Tests Test 05/31/16 05:27 White Blood Count 15.2th/mm3 (3.8-10.1) Red Blood Count 4.47mil/mm3 (3.90-5.20) Hemoglobin 13.3g/dL (12.0-15.6) Hematocrit 41.1% (35.0-46.0) Mean Corpuscular Volume 91.9fL (81-100) Mean Corpuscular Hemoglobin 29.8pg (27.0-35.0) Mean Corpuscular Hemoglobin Concent 32.4% (32.0-37.0) Red Cell Distribution Width 15.1% (12.3-15.4) Platelet Count 240bil/L (150-400) Neutrophils (%) (Auto) 95.0% (40-74) Lymphocytes (%) (Auto) 2.9% (14-46) Monocytes (%) (Auto) 1.3% (4-12) Eosinophils (%) (Auto) 0.1% (0-5) Basophils (%) (Auto) 0.1% (0-3) Prothrombin Time 23.0sec (8.1-12.5) Prothromb Time International Ratio 2.12ratio Sodium Level 139mEq/L (134-144) Potassium Level 5.6mEq/L (3.5-5.2) Chloride Level 95mEq/L (97-108) Carbon Dioxide Level 26mmol/L (18-29) Blood Urea Nitrogen 82mg/dL (8-27) Creatinine 2.25mg/dL (0.57-1.00) Estimat Glomerular Filtration Rate 30mL/min (>59) Glucose Level 184mg/dL (60-99) Calcium Level 9.7mg/dL (8.5-10.1) Microbiology 05/25/16 Blood Culture - Final, Complete NO GROWTH AFTER 5 DAYS 05/27/16 C. difficile DNA Amplification - Final, Complete 05/30/16 Adenovirus DNA (PCR) - Final, Complete Not Detected 05/30/16 Coronavirus 229E PCR - Final, Complete Not Detected 05/30/16 Coronavirus HKU1 PCR - Final, Complete Not Detected 05/30/16 Coronavirus NL63 PCR - Final, Complete Not Detected 05/30/16 Coronavirus OC43 PCR - Final, Complete Not Detected 05/30/16 Influenza Type A (PCR) - Final, Complete Not Detected 05/30/16 Influenza Type B (PCR) - Final, Complete Not Detected 05/30/16 Human Metapneumovirus (PCR) (LEE) - Final, Complete Not Detected 05/30/16 Rhinovirus (PCR)(LEE) - Final, Complete Not Detected 05/30/16 Parainfluenza Virus Type 1 (PCR) - Final, Complete Not Detected 05/30/16 Parainfluenza Virus Type 2 (PCR) - Final, Complete Not Detected 05/30/16 Parainfluenza Virus Type 3 (PCR) - Final, Complete Not Detected 05/30/16 Parainfluenza Virus Type 4 (NAAT) - Final, Complete Not Detected 05/30/16 Respiratory Syncytial Virus (PCR)[place] - Final, Complete Not Detected 05/30/16 Chlamydia pneumoniae (PCR) - Final, Complete Not Detected 05/30/16 Mycoplasma pneumoniae DNA Detection - Final, Complete 05/30/16 Streptococcus pneumoniae Ag Screen - Final, Complete Result Diagram: 05/31/1652605/31/16526 Microbiology Blood and urine cultures are pending from the emergency room. X-Rays, CTs and MRIs PROCEDURE: X-RAY CHEST ONE VIEW, PORTABLE ([id number]) INDICATIONS: SHORTNESS OF BREATH TECHNIQUE: One view of the chest was acquired. COMPARISON: [facility], CR, XR CHEST 2VW, 03/23/2016, 11:43. [facility], CR, XR CHEST 1VW (PORTABLE), 02/17/2016, 5:07. FINDINGS: Surgical changes and devices: None. Lungs and pleura: Small pleural effusion is present and there is airspace opacity within the left lung base. Lungs otherwise are clear and hyperinflated. Mediastinum: Mediastinal contours appear normal. Heart size is normal. Bones and chest wall: No suspicious bony lesions. Overlying soft tissues appear unremarkable. IMPRESSION: Small left pleural effusion and basilar airspace opacity consistent with compressive atelectasis versus pneumonia. Correlate clinically. Dictated by: Yang Miner RRA Interpreted: Eliana Don MD on 05/25/2016 at 9 :57 Transcribed by: KEVIN on 05/25/2016 at 10:00 Approved by: Eliana Don MD, PhD on 05/25/2016 at 16:57 Cardiac Echo Impressions Echocardiogram Report Name: SEJAL GILL JStudy Date: 05/25/2016 Heigh t: 65 in Hospital Exam Location: [facility] Weigh t: 100 lb Gender: Female BSA: 1.5 m2 : 1930 Age: 85 yrs BP: 1 60/82 mmHg Reason For Study: Congestive Heart Failure Ordering Physician: HOSPITALIST [facility] Performed By: Marianne Weeks Referring Physician: RONEN DIAZ Interpretation Summary The left ventricular cavity is small. There is mild concentric left ventricular hypertrophy. The ejection fraction is estimated to be 60-65%. Diastolic function could not be accurately assessed due to atrial fibrillation. The right ventricle is normal in size and function. The mitral valve leaflets are severely calcified. There is moderate calcification extending into the subvalvular apparatus. There is moderate mitral stenosis. The mitral valve mean gradient is 5.7 mmHg. There is trace mitral regurgitation. The aortic valve is moderately calcified. The aortic valve mean gradient is 19.9 mmHg. There is moderate to severe aortic stenosis. There is moderate aortic regurgitation. The left atrium is severely dilated. Spontaneous contrast in LA. The tricuspid valve is normal in structure and function. There is mild tricuspid regurgitation. The right ventricular systolic pressure is estimated at 26 mmHg assuming a right atrial pressure of 3 mm Hg. There is no pericardial effusion. There is a moderate left-sided pleural effusion. Compared to the previous study on 08/14/2015, the pleural effusion is new. Assessment & Plan The patient is an 85 year old female with a history of chronic atrial fibrillation on warfarin, rheumatic heart disease complicated by mitral stenosis , CKD stage 3, and HTN presents to the ER via EMS due to increasing SOB for several weeks. Acute on chronic respiratory failure present on admission, improving - Patient found to have hypoxia, and confusion due to hypoxia, with shortness of breath secondary to congestive heart failure and left pleural effusion with atelectasis - This appears to be primarily due to Acute on chronic diastolic congestive heart failure - Echocardiogram ordered and results are as above - Called her paper baling machine operator today and he thinks daily dose of lasix is not a bad idea. We will consider a cardiology consult. - Continue IV Lasix 40 mg twice a day , potassium today is 3.6, TSH is 0.257 - Oxygen - Solu-Medrol 125 mg IV were given in the emergency room we have held further doses. - Ordered CXR due to worsened symptoms today: Showed a developing RLL PNA: Switched her to Levaquin from Ceftriaxone, solumedrol, duonebs and albuterol are ordered. Urine strep and legionella are also ordered: Stopped steroids as she has improved. Switched Levaquin to PO, renally dosed. Acute Renal Failure: Due to Diuresis for CHF. Stopped Lasix, Losartan medications. Cardiology is consulted, they will see the patient to provide recommendations which will be useful for goals of care. Hyperkalemia: 5.6 today. 5 g PO Kayexalate was given. Stopped Potassium supplementation. Chronic atrial fibrillation/atrial flutter - Continue warfarin per pharmacy, INR today is 2.12 - Telemetry monitoring - Rate control History of rheumatic heart disease - Patient appears to have progression of aortic stenosis from mild to severe which may be contributing to her congestive heart failure - Patient also has moderate mitral valve stenosis after balloon angioplasty and has a severely calcified valve. This also likely contributing to her diastolic congestive heart failure. - Continue telemetry monitoring - Will consider cardiology consult Chronic kidney disease stage III - Patient was given a bolus of normal saline in the emergency room prior to her diagnosis of congestive heart failure. - Continue Lasix 40 mg IV twice a day for now: dose cut in half 05/31/15 - Monitor renal function very closely - Monitor electrolytes daily and replace deficiencies as needed. Dementia/expressive aphasia -This is quite evident today. -She lives in a condominium with her 91-year-old -Family are aware that she may need chcf placement or 24-hour care at home. Apparently the family is able to afford that. -She has had a physical therapy evaluation confirming her need for skilled care either at home or a chcf setting. Hypokalemia -Resolved Disposition: Will discuss her goals with the help of cardiology. Patient will need to be hospitalized for another 24 hours for further evaluation and treatment of the above problems. Anticipate she will be stable enough to go home tomorrow with o/p cardiology follow up.. GI Prophylaxis: Proton Pump Inhibitor VTE Prophylaxis: Theraputic Anticoag with Warfarin VTE Mechanical Devices: Intermittant Pneumatic CD Resuscitation Status: CPR: Attempt Resuscitation Mary Vogt DO May 31, 2016 18:31
[2016-05-31 19:39] VITALS: BP 116/72; PULSE 86; RESP 18; O2SAT 98
[2016-06-01 00:30] VITALS: PULSE 81; RESP 18; O2SAT 98
[2016-06-01] MEDS: Albuterol-Ipratropium 3 mL Inhalation Solution NEB SCH ×2 (00:30→04:30)
[2016-06-01 00:58] VITALS: BP 134/70; PULSE 83; RESP 18; O2SAT 95
--- NOTE | 2016-06-01 03:29 | NUR ---
Confusion/Buttocks Patient is confused off and on this shift. Patient seen taking off gown. Gown put back on and patient re-oriented about where she was. On initial assessment, bilateral buttocks appeared slightly reddened. Calmoseptine applied. Patient refused Advair medication. Took PO medications with applesauce. Patient states no respiratory distress. VSS. Call light within reach. Care continues.
[2016-06-01 04:51] VITALS: BP 131/70; PULSE 80; RESP 18; O2SAT 92
[2016-06-01 06:13] LABS: BASOPHILS % (AUTO) 0.1 % (0-3); EOSINOPHILS % (AUTO) 0 % (0-5); MONOCYTES % (AUTO) 5.7 % (4-12); Mean Corpuscular Hemoglobin 29.5 pg (27.0-35.0); NEUTROPHILS % (AUTO) 90.5 % (40-74); Platelet Count 231 bil/L (150-400)
[2016-06-01 06:25] LABS: INR 2.69 ratio
[2016-06-01 08:12] LABS: Magnesium 2.1 mg/dL (1.6-2.6); Phosphorus 3.6 mg/dL (2.5-4.9)
[2016-06-01 08:24] VITALS: PULSE 88; RESP 16; O2SAT 95
[2016-06-01] MEDS ORDERED: levoFLOXacin 500 mg Tablet PO SCH ×2 (08:30→20:45)
[2016-06-01] MEDS: Fluticasone-Salmeterol 500-50 Inhaler INHALATION SCH ×3 (08:30→21:45)
[2016-06-01] MEDS ORDERED: Albuterol-Ipratropium 3 mL Inhalation Solution NEB PRN (08:30)
[2016-06-01] MEDS ORDERED: levoFLOXacin Inj 500 MG in IV Premix 1 EACH IV SCH (08:30)
[2016-06-01 09:54] LABS: APPEARANCE,URINE HAZY (CLEAR,HAZY); COLOR,URINE STRAW (YELLOW); OCCULT BLOOD,URINE NEGATIVE (NEGATIVE); UROBILINOGEN,URINE NORMAL (NORMAL)
--- NOTE | 2016-06-01 10:53 | PCM.CONPAL ---
Date of Service Jun 01, 2016 Date of Hospital Admission: May 25, 2016 at 08:48 Date of Palliative Consult: Jun 01, 2016 Requesting Provider: Mary Vogt DO Reason Palliative Care Consult: Goals of Care Discussion Reason for Consultation Palliative Care received verbal order from Dr Grace Vogt 06/01/16 to assist with goals of care. Patient is an 85 year old woman with chronic atrial fibrillation , rheumatic heart disease complicated by mitral stenosis, CKD stage 3 and HTN. She was admitted 05/25/16 for evaluation and treatment of acute on chronic respiratory failure likely due to acute exacerbation of CHF. Patient lives with her in an apartment locally. [place] () [phone] Pia Kraft (daughter) [phone] Hospital Unit @time of consult: Orthopedic/Surgical Care ([id number]) Palliative Care Recommendation Summary of palliative recommendations: -Symptom management (Pain/other) -DPOA/Advanced Directives/POLST 1. Code Status changed to DNR/DNI today after discussion with NEVILLE Palacio. 2. Advanced Directives: No prior paperwork. Family reconsidering options and are interested in hospice info visit after lengthy counseling with Dr. Graham 06/01. 3. No prior POLST: Dr. Graham gave dtr Pia elisabeth POLST, reviewed it with her and offered to return to discuss with her and her two brothers when they arrive later today. -Family/emotional support: 2 local adult children (Pia and Kaila) help their elderly parents. There is hired CG support 3 days a week for 15hours/day for [employer]. Palliative Care Prognosis: Likely 3 to 6 months or less. These patient is eligible for hospice enrollment based on her combined heart and lung disease. Pulmonary Dr. Price: 02/2015 FPTs showed severe COPD with severe reduction in diffusion capacity causing both emphysema and interstitial lung disease. consultant technology 06/01 Dr. Latosha Olson: explained to the patient, her daughter and her son patient's cardiac condition. I personally reviewed her echocardiogram. Her left ventricle is quite small with a huge left atrium and pulmonary edema. This indicates that her mitral stenosis is quite severe, obstructing flow and preventing left ventricle from filling. With a combination of mitral stenosis and aortic stenosis, it causes her to have little forward stroke volume and poor organ perfusion. With severe mitral stenosis, it causes pulmonary congestion. The patient is not a suitable candidate for open heart surgery for mitral and aortic valve replacement. There is no effective medical treatment to relieve her symptoms at this time. I believe that the patient should be considered for palliative care. Her prognosis is poor. The patient and her daughter seem to understand and accept her condition. Patient Goals: 1. Capacity: pt with limited understanding of complex health issues due to mild to moderate dementia and expressive aphasia s/p 3 CVAs. Dtr Pia and her son Kaila are local family who help with her care and health decisions. 2. Family is considering a plan that would keep patient at home with no hospital re-admission in future, if she could be managed for symptoms of dyspnea at home with good comfort. 3. Family recognizes her debility and poor prognosis and are willing to plan for this. 06/01 Family Meeting with Palliative Care: After allowing time for Pia, Kaila and Dusty to meet with Dr. Lux and review a blank POLST, Dr. Graham met with Pia and Dusty (Kaila went back to work) to discuss POLST more specifically, answering numerous questions on heart failure prognosis, hospice care, hospice eligibility , etc. At the end of the discussion, Pia signed a POLST that states: DNR/DNI, no artificial nutrition, limited interventions to include IV medications and fluids, but no transfer to CCU, No pressors, etc. Original 06/01 POLST now in paper chart and copies given to adult children at bedside. Additional Medical Diagnoses with primary management by Hospitalist team include : Acute on chronic respiratory failure present on admission, improving - Patient found to have hypoxia, and confusion due to hypoxia, with shortness of breath secondary to congestive heart failure and left pleural effusion with atelectasis - This appears to be primarily due to Acute on chronic diastolic congestive heart failure - Echocardiogram ordered and results are as above - Called her analyst food and beverage today and he thinks daily dose of lasix is not a bad idea. We will consider a cardiology consult. - Continue IV Lasix 40 mg twice a day , potassium today is 3.6, TSH is 0.257 - Oxygen - Solu-Medrol 125 mg IV were given in the emergency room we have held further doses. - Ordered CXR due to worsened symptoms today: Showed a developing RLL PNA: Switched her to Levaquin from Ceftriaxone, solumedrol, duonebs and albuterol are ordered. Urine strep and legionella are also ordered: Stopped steroids as she has improved. Switched Levaquin to PO, renally dosed. Acute Renal Failure: Due to Diuresis for CHF. Stopped Lasix, Losartan medications. Cardiology is consulted, they will see the patient to provide recommendations which will be useful for goals of care. Hyperkalemia: 5.6 today. 5 g PO Kayexalate was given. Stopped Potassium supplementation. Chronic atrial fibrillation/atrial flutter - Continue warfarin per pharmacy, INR today is 2.12 - Telemetry monitoring - Rate control History of rheumatic heart disease - Patient appears to have progression of aortic stenosis from mild to severe which may be contributing to her congestive heart failure - Patient also has moderate mitral valve stenosis after balloon angioplasty and has a severely calcified valve. This also likely contributing to her diastolic congestive heart failure. - Continue telemetry monitoring - Will consider cardiology consult Chronic kidney disease stage III - Patient was given a bolus of normal saline in the emergency room prior to her diagnosis of congestive heart failure. - Continue Lasix 40 mg IV twice a day for now: dose cut in half 05/31/15 - Monitor renal function very closely - Monitor electrolytes daily and replace deficiencies as needed. Dementia/expressive aphasia -This is quite evident today. -She has had a physical therapy evaluation confirming her need for skilled care either at home or a intermediate setting. Hypokalemia -Resolved Disposition: Will discuss her goals with the help of cardiology. Patient will need to be hospitalized for another 24 hours for further evaluation and treatment of the above problems. Anticipate she will be stable enough to go home tomorrow with o/p cardiology follow up.. GI Prophylaxis: Proton Pump Inhibitor VTE Prophylaxis: Theraputic Anticoag with Warfarin VTE Mechanical Devices: Intermittant Pneumatic CD Resuscitation Status: CPR: Attempt Resuscitation Problems: Resuscitation Status Resuscitation Status: DNR/DNI:Do Not Resuscitate/Intubate POLST Updates/Changes Previous POLST?: No POLST Last Review Date: Jun 01, 2016 POLST Discussed with: Health Care Agent (IRLANDAHC) . Advanced Care Planning Address: POL, Code status change Pain: None Symptom management: Dyspnea Pt History History of Present Illness The patient is an 85 year old female with a history of chronic atrial fibrillation on warfarin, rheumatic heart disease complicated by mitral stenosis , CKD stage 3, and HTN who presents to the ER via EMS due to increasing SOB for several weeks. At home she has home oxygen She was admitted for evaluation and treatment of acute on chronic respiratory failure likely due to acute exacerbation of CHF. Hospital Course: Today is Hospital Day 7 and Palliative Care asked 06/01 to help family identify their goals of care. Patient has continued to have worsening kidney function and end-stage heart failure as well as oxygen dependent COPD ( emphysema and interstitial lung disease). Past Medical History Significant PMH Noted: 1. Rheumatic heart disease complicated by mitral stenosis. She underwent a balloon valvuloplasty in 2008. She also has some history of aortic sclerosis with [id number] aortic insufficiency. 2. Diverticulosis. 3. CVA May 2011, 2nd Acute ischemic CVA in 2011 several months later, involving the left temporal occipital lobe with some word-finding difficulties. 3rd embolic stroke 10/2012 like due to subtherapeutic coumadin. 4. 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 Dementia with expressive aphasia 6. Chronic AF since her 30s, on coumadin, then 7. Kidney disease (Chronic, stage III) 8. COPD, severe emphysema and interstitial lung disease 9. HTN 10. Hyperlipidemia 11. Peripheral vascular disease Surgical History Tonsillectomy out at age 13 Lumpectomies for breast carcinoma in situ in 1987 and 1996 Balloon Valvuloplasty in 2008 Appendectomy at the age of 71? Cataract surgery one I, she does not remember which Cholecystectomy Family History Patient's father at the age of 80 of old age Patient's mother at age 75 from brain hemorrhage Patient's brother of unknown problems Patient's sister is not well mentally Social History Patient was born and raised in [place] until her family moved to [place]. 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 Patient received a scholarship to college however she met her got . Patient has been for 61 years. She is 6 para 6. One of her children at the age of 20 after committing suicide. The other 5 are alive and well. She lives in a condominium with her 91-year-old . Family aware that she may need intermediate placement or 24-hour care at home. Apparently the family is able to afford that. She is a never smoker, nondrinker. Medications Current Medications: Current Medications Furosemide 20 mg BID IVPUSH Last administered on 05/31/16 08:40; Admin Dose 20 MG; Start 05/30/16 at 20:30; Stop 05/31/16 at 17:46; Status DC Albuterol/ Ipratropium 3 ml 3 ml Q4H NEB Last administered on 06/01/16 00:30; Admin Dose 3 ML; Start 05/30/16 at 12:30; Stop 06/01/16 at 07:28; Status DC Levofloxacin/ Dextrose/Premix 100 ml @ 100 mls/hr Q48H IV; Start 06/01/16 at 08: 30; Stop 06/01/16 at 08:30; Status DC Levofloxacin 500 mg Q48H PO; Start 06/01/16 at 08:30; Stop 06/01/16 at 08:30; Status DC Sodium Polystyrene Sulfonate 5 gm ONCE PO; Start 05/31/16 at 17:50; Stop 06/01/16 at 06:47; Status DC Albuterol/ Ipratropium 3 ml Q4H PRN NEB; Start 06/01/16 at 08:30 Scheduled Atenolol (Atenolol) 100 Mg Tablet 100 MG PO DAILY Atorvastatin Calcium (Atorvastatin Calcium) 20 Mg Tablet 20 MG PO HS Lactose-Reduced Food (Ensure Original) 237 Ml Liquid 237 ML PO DAILY Losartan Potassium (Losartan Potassium) 50 Mg Tablet 50 MG DAILY Multivits-Min/Iron/FA/Lutein (Centrum Silver Women Tablet) 8 Mg Iron-400 Mcg- 300 Mcg Tablet 1 EACH PO DAILY Warfarin Sodium (Warfarin Sodium) 5 Mg Tablet 5 MG PO DAILY Warfarin Sodium (Warfarin Sodium) 2.5 Mg Tablet 2.5 MG PO DAILY Objective Findings Exam Vital Sign - Last Date Time Temp Pulse Resp B/P Pulse Ox O2 Delivery O2 Flow Rate FiO2 06/01/16 08:24 88 16 95 Room Air 06/01/16 04:51 36.2 131/70 2.00 Intake and Output 05/31/16 05/31/16 06/01/16 Cumulative From/Thru 15:00 23:00 07:00 05/25/16 08:18 - 06/01/16 06:27 Intake Total 960 ml 100 ml 6435 ml Output Total 300 ml 300 ml 7807 ml Balance 660 ml -200 ml -1372 ml Intake Oral 960 ml 100 ml 5662 ml IV Total 773 ml Output Urine Total 300 ml 300 ml 5718 ml Urine/Stool Mix 2089 ml # Voids 1 13 # Bowel Movements 2 1 20 Objective General: alert, smiling, sits in bed somewhat lopsided at 60degree elevation of HOB Mental Status: somewhat confused, pleasant HEENT: unremarkable Neck: no JVD Lungs: bibasilar crackles, R>L Heart: S1,S2, holosystolic murmur. Abdomen: soft nondistended, nontender Ext: no edema, erythema or cyanosis. Lab/Diagnostics 06/01/16 0521 X-Rays, CTs and MRIs Chest x-ray from 36 showed small left pleural effusion, focal opacity in the right lower lobe suspicious for pneumonia. Echocardiogram May 25 Mild concentric LVH, EF 60-65%. RV is normal in size and function. RV systolic pressure is 26 mmHg, assumed RA pressure 3 mmHg. Mitral leaflet is severely calcified. Moderate mitral stenosis gradient of 5.7 mmHg. Trace MR aortic valve with moderate calcification. Gradient 19.9, moderate to severe left ear with moderate AI. Moderate left pleural effusion is noted 12-lead ECG Telemetry overnight was benign without events. Time spent Total time 70 minutes; >50% face to face with patient and/or family, providing counselling regarding plans and recommendations, and in care coordination with his/her medical teams. I also spent an additional 60 minutes counseling for advanced care planning with the patient/the patients family/the surrogate decision maker. Brooke Graham MD Jun 01, 2016 10:53
[2016-06-01] MEDS: Pantoprazole 20 mg ER24 Tablet PO SCH (11:14)
--- NOTE | 2016-06-01 11:24 | PCM.PHAPRO ---
Progress Date of Service: Jun 01, 2016 WARFARIN DOSING PER PHARMACY -May 7-May 8-Jun 01-May 2.61 2.17 2.12 2.69 -0.76 -0.44 -0.05 0.57 2 MG 3 3 2.5 INR still WNL but trended up quickly last night, will put patent back on home dose today and give 2.5 mg tonight to see how INR trends. With discontinuation of Levaquin last night I expect home dose to be adequate to keep within range. Pharmacy will continue to monitor INR/CBC/signs and symptoms of bleeding Pharmacy appreciates consult and will continue to monitor. THANKS! Rena Pedro PharmD Jun 01, 2016 11:24
--- NOTE | 2016-06-01 11:31 | DRSVH ---
PROCEDURE: US RENAL SONOGRAM INDICATIONS: renal injury TECHNIQUE: Real-time scanning was performed of the kidneys and bladder, with image documentation. COMPARISON: [facility], CT, CHEST/ABD/PELVIS/ WO CON (PNL), 11/04/2012, 9:09. FINDINGS: Kidneys: Kidneys are normal in size. Right kidney measures 6.9 cm long; left kidney measures 8.1 cm long. Right renal cortical thickness is 0.8 cm; left renal cortical thickness is 0.8 cm. Renal cor tical echotexture is increased bilaterally. No hydronephrosis or nephrolithiasis. No suspicious ajith id mass lesions. Bilateral renal cysts redemonstrated Bladder: Pre-void bladder volume is 280 mL. Post-void residual is 67 mL. Pre-void images demonstra te no intraluminal masses or stones. On pre-void images, neither ureteral jets are noted with color Doppler interrogation. (Of note, ureteral jets may not be detectable in up to 25% of cases due to in sufficient differences in specific gravity between ureteral and bladder urine). Miscellaneous: No free pelvic fluid. IMPRESSION: 1. Bilateral renal atrophy and renal cysts redemonstrated. 2. 67 cc PVR. Dictated by: Yang Miner RRA Interpreted: Eliana Don MD on 06/01/2016 at 11:30 Transcribed by: KEVIN on 06/01/2016 at 11:31 Approved by: Eliana Don MD, PhD on 06/01/2016 at 17:03
--- NOTE | 2016-06-01 11:31 | PCM.CHPCAR ---
Consult Subjective Date of service Jun 01, 2016 Date of admit May 25, 2016 at 08:48 Provider Requesting Consult Primary Care Physician Primary Care Physician: Dusty Lee Chief Complaint fatigue and weakness History of Present Illness Fartun Fair is an 85 -year-old woman with a history of chronic atrial fibrillation on warfarin, mitral stenosis (status post balloon valvuloplasty approximately 10 years ago), chronic kidney disease stage III, hypertension, aortic stenosis/aortic insufficiency, hyperlipidemia, peripheral vascular disease, CVA 3, COPD. Patient is slightly confused for history today but her daughter tells me the patient has been experiencing some shortness of breath over the last few weeks a mild cough. She was having progressive weakness and fatigue and her noticed mental status changes. ovens supervisor were called to the house where she was noted to be hypoxic. Daughter reports her appetite has been decreasing over the last month and her weight has been slowly declining over the past few months. Review of Systems Review of Systems #GEN-decreased appetite, positive fatigue and confusion. Weight slowly declining over a few months. #HEENT-denies recent sore throat, ear pain, congestion #NECK-no swollen glands #CHEST-denies shortness of breath, cough, wheeze. #CV-denies recent chest pains. One syncopal episode approximately a month ago. Otherwise denies palpitations or significant dizziness. Reports decreased exercise tolerance and gets fatigued walking in her home. #GI-intermittent left lower quadrant abdominal pain. Reports stool is been frequent, denies melena or hematochezia #-denies urgency or frequency, dysuria #ENDO-history of borderline diabetes, no thyroid disease. Weight has been slowly declining #NEURO-nonfocal #PSYCH-no history of psychiatric disease, question of dementia. #MS-arthritic symptoms without joint redness or swelling. #INTEG-denies rash or lesion PMH Scheduled Atenolol (Atenolol) 100 Mg Tablet 100 MG PO DAILY (Reported) Atorvastatin Calcium (Atorvastatin Calcium) 20 Mg Tablet 20 MG PO HS (Reported) Lactose-Reduced Food (Ensure Original) 237 Ml Liquid 237 ML PO DAILY (Reported) Losartan Potassium (Losartan Potassium) 50 Mg Tablet 50 MG DAILY (Reported) Multivits-Min/Iron/FA/Lutein (Centrum Silver Women Tablet) 8 Mg Iron-400 Mcg- 300 Mcg Tablet 1 EACH PO DAILY (Reported) Warfarin Sodium (Warfarin Sodium) 5 Mg Tablet 5 MG PO DAILY (Reported) Warfarin Sodium (Warfarin Sodium) 2.5 Mg Tablet 2.5 MG PO DAILY (Reported) Discontinued Medications Amlodipine (Amlodipine) 5 Mg Tablet 5 MG PO HS (Reported) Fluticasone/Salmeterol (Advair Hfa 230-21 Mcg Inhaler) 12 Gm Hfa.aer.ad 2 PUFFS INHALATION BID (Reported) Current Inpatient Medications Current Medications Furosemide 20 mg BID IVPUSH Last administered on 05/31/16 08:40; Admin Dose 20 MG; Start 05/30/16 at 20:30; Stop 05/31/16 at 17:46; Status DC Albuterol/ Ipratropium 3 ml 3 ml Q4H NEB Last administered on 06/01/16 00:30; Admin Dose 3 ML; Start 05/30/16 at 12:30; Stop 06/01/16 at 07:28; Status DC Levofloxacin/ Dextrose/Premix 100 ml @ 100 mls/hr Q48H IV; Start 06/01/16 at 08: 30; Stop 06/01/16 at 08:30; Status DC Levofloxacin 500 mg Q48H PO; Start 06/01/16 at 08:30; Stop 06/01/16 at 08:30; Status DC Sodium Polystyrene Sulfonate 5 gm ONCE PO; Start 05/31/16 at 17:50; Stop 06/01/16 at 06:47; Status DC Albuterol/ Ipratropium 3 ml Q4H PRN NEB; Start 06/01/16 at 08:30 Allergies: Coded Allergies: No Known Allergies (Verified , 08/13/15) Social History Hx Alcohol Use: NoHx Substance Use: NoHx Tobacco Use: No Smoking Status: Never Smoker Living Arrangement: with Family (patient lives with her .) Exam Vital Signs Vital Sign - Last Date Time Temp Pulse Resp B/P Pulse Ox O2 Delivery O2 Flow Rate FiO2 06/01/16 08:24 88 16 95 Room Air 06/01/16 04:51 36.2 131/70 2.00 Intake and Output 05/31/16 05/31/16 06/01/16 Cumulative From/Thru 15:00 23:00 07:00 05/25/16 08:18 - 06/01/16 06:27 Intake Total 960 ml 100 ml 6435 ml Output Total 300 ml 300 ml 7807 ml Balance 660 ml -200 ml -1372 ml Intake Oral 960 ml 100 ml 5662 ml IV Total 773 ml Output Urine Total 300 ml 300 ml 5718 ml Urine/Stool Mix 2089 ml # Voids 1 13 # Bowel Movements 2 1 20 Objective #GEN-sitting up on bedside no apparent distress, #HEENT-eyes clear PERRLA, pharynx moist, tongue midline, face symmetrical. #NECK-supple without adenopathy or thyromegaly #CHEST-symmetrical, slight crackles bibasilarly right greater than left #CV-irregular, holosystolic murmur soft through precordium, no JVD, no peripheral edema no carotid or abdominal bruits appreciated. #GI-soft nontender, no mass. #-deferred #NEURO-and slightly confused, nonfocal exam otherwise. #PSYCH-again patient appears slightly confused mood is appropriate otherwise. #MS-no obvious joint swelling or redness #INTEG-no significant skin lesions or rash. Lab and Diagnostics Labs Magnesium 2.1 pro BNP 4572 INR 2.69 Result Diagram: 06/01/1652006/01/16520 X-Rays, CTs and MRIs Chest x-ray from showed small left pleural effusion, focal opacity in the right lower lobe suspicious for pneumonia. Echocardiogram May 25 Mild concentric LVH, EF 60-65%. RV is normal in size and function. RV systolic pressure is 26 mmHg, assumed RA pressure 3 mmHg. Mitral leaflet is severely calcified. Moderate mitral stenosis gradient of 5.7 mmHg. Trace MR aortic valve with moderate calcification. Gradient 19.9, moderate to severe with moderate AI. Moderate left pleural effusion is noted 12-lead ECG Telemetry overnight was benign without events. Assessment & Plan Assessment Fartun Fair is an 85 -year-old woman with a history of chronic atrial fibrillation on warfarin, mitral stenosis (status post balloon valvuloplasty approximately 10 years ago), chronic kidney disease stage III, hypertension, aortic stenosis/aortic insufficiency, hyperlipidemia, peripheral vascular disease, CVA 3, COPD. Patient is slightly confused for history today but her daughter tells me the patient has been experiencing some shortness of breath over the last few weeks a mild cough. She was having progressive weakness and fatigue and her noticed mental status changes. She claims she is currently feeling better and denies chest pain or dyspnea. She is saturating well on room air. Echocardiogram May 25 Mild concentric LVH, EF 60-65%. RV is normal in size and function. RV systolic pressure is 26 mmHg, assumed RA pressure 3 mmHg. Mitral leaflet is severely calcified. Moderate mitral stenosis gradient of 5.7 mmHg. Trace MR aortic valve with moderate calcification. Gradient 19.9, moderate to severe with moderate AI. Moderate left pleural effusion is noted #Valvular heart disease- s/p mitral valvuloplasty now with moderate MS/ trace MR and severe calcification. Non- operable Moderate to severe with moderate AI contributing to [place] secondary to low cardiac output. #Acute on chronic respiratory failure- she is satting well on room air. #Chronic A. fib- she is currently rate controlled continue with anticoagulation. #Chronic kidney disease with [place]-hospitalist has asked for nephrology to review this case. # Hyperkalemia- currently being monitored, nephrology to evaluate further. Pain Evaluation: Adequate Pain Control VTE Prophylaxis: Theraputic Anticoag with Warfarin VTE Mechanical Devices: Intermittant Pneumatic CD Resuscitation Status: CPR: Attempt Resuscitation Kapil Guerrero PA-C Jun 01, 2016 10:27
--- NOTE | 2016-06-01 11:49 | NUR ---
Palliative Care Palliative Care received verbal order from Dr Grace Vogt 06/01/16 to assist with goals of care. Patient is an 85 year old woman with chronic atrial fibrillation, rheumatic heart disease complicated by mitral stenosis, CKD stage 3 and HTN. She was admitted 05/25/16 for evaluation and treatment of acute on chronic respiratory failure likely due to acute exacerbation of CHF. Patient lives with her in an apartment locally. [place] () [phone] Pia Kraft (daughter) [phone] Palliative Care to follow. Ayanna Ruiz
[2016-06-01] MEDS ORDERED: 0.9% Sodium Chloride 1,000 ML IV SCH (11:50)
--- NOTE | 2016-06-01 12:52 | CONS ---
[address] [address] CONSULTATION REPORT PATIENT: SEJAL GILL : 1930 MR#: [id number] ADMIT: 05/25/2016 JOB ID: [id number] DATE OF SERVICE: 06/01/2016 NEPHROLOGY CONSULTATION: REQUESTING PHYSICIAN: Juliocesar Vogt MD REASON FOR CONSULTATION: Management of abnormal kidney function. CHIEF COMPLAINT: Weakness and shortness of breath. HISTORY OF PRESENT ILLNESS: The patient is an 85-year-old lady with significant past medical history of chronic kidney disease stage 3, hypertension, COPD, peripheral vascular disease, chronic atrial fibrillation, mitral stenosis status post balloon valvuloplasty, who came to the hospital with a complaint of fatigue and shortness of breath. The patient was admitted on May 25, 2016. The patient has been treated for bacterial pneumonia. Her initial serum creatinine was 1.61. Over the past several days it has gradually risen to 2.54. Her BUN today it is 97. Of note, the patient has been receiving IV methylprednisone treating for COPD. She was also given IV Lasix 20 mg b.i.d.; the medication was started two days ago. The patient has been on losartan since the admission. Dr. Vogt stopped the medication yesterday. Of note, potassium chloride 20 mEq b.i.d. was ordered on May 28, 2016. Her current potassium today is 5.5. The patient received one dose of Kayexalate 15 g. During my visit today she is very confused, unable to provide any meaningful history. I have gathered history from the medical record. According to the nurse, she has a poor appetite, unable to drink enough fluid. Bladder scan done at the bedside showed urine volume off 257. The patient has not received any IV contrast over the past 72 hours. PAST MEDICAL HISTORY: 1. Chronic kidney disease stage 3. 2. Hypertension with hypertensive nephrosclerosis. 3. Rheumatic heart disease complicated by mitral stenosis status post balloon valvuloplasty. 4. Diverticulosis. 5. COPD. 6. CVA. 7. Chronic atrial fibrillation on anticoagulant. PAST SURGICAL HISTORY: 1. Status post appendectomy. 2. Status post balloon valvuloplasty of mitral valve. 3. Breast carcinoma in situ status post lumpectomy. 4. Tonsillectomy. 5. Cataract surgery. 6. Cholecystectomy. FAMILY HISTORY: Father at age of 80 of old age. Mother at age 75 from heart problems. Brother of unknown etiology. A sister has a mental issue. SOCIAL HISTORY: The patient denies current use of alcohol, tobacco, or illicit drugs. ALLERGIES: No known drug allergies. MEDICATIONS: Reviewed. REVIEW OF SYSTEMS: Unable to obtain due to confusion. PHYSICAL EXAMINATION: Vitals: Temperature 36.2, pulse 88, respiratory rate 18, blood pressure 131/70, O2 sat 95% on room air. General appearance: Chronically ill-looking, having labored breathing. Arousable. Confused at times. Unable to give meaningful answers. HEENT: Atraumatic. Dry mucous membranes. PERRLA. No lymphadenopathy. No thyroid enlargement. No JVD. Heart: Irregular rhythm. Systolic murmur noted. Lungs: Poor air entry bilaterally. Occasional wheezing noted. Coarse crackles noted. Abdomen: Soft active. Bowel sounds. The urinary bladder is full. Extremity: No edema. Cyanosis. Diffuse muscle atrophy. LABORATORY: Sodium 138, potassium 5.5, chloride 95, bicarb 27, BUN 97, creatinine 2.54. WBC 23.9, hemoglobin 11.1, INR 2.69. Urine specific gravity 1.010, protein 33, 3-10 RBCs, 11-50 WBCs. Urine eosinophils not seen. Urine culture is pending. ASSESSMENT: 1. Acute kidney injury on chronic kidney disease stage 3. 2. Worsening leukocytosis. Suspected hospital-acquired pneumonia versus aspiration pneumonia. 3. Hyperkalemia. 4. Chronic obstructive pulmonary disease. 5. Chronic atrial fibrillation on anticoagulant. 6. Rheumatic heart disease complicated by mitral stenosis, status post balloon angioplasty. 7. Urinary retention. 8. Hypertension, with hypertensive nephrosclerosis. 9. Altered mental status. PLAN: The patient appears to be hypovolemic. According to the nurse she has quite a poor appetite and unable to drink enough fluid given the altered mental status. The patient has been on IV diuretics given underlying disease of valvular heart disease and congestive heart failure. However, her BUN creatinine keep rising without treatment. The high BUN and creatinine ratio is likely due to prerenal azotemia and steroid administration. Elevation of the potassium level is secondary to losartan, potassium supplement, and [place]. I agreed with the primary team to hold losartan. I will recommend to start the patient on IV fluid of normal saline 80 mL/hour only for 1 L given underlying disease of severe MS and pulmonary edema. Recommend to insert Barron catheter to improve the urine flow rate and prevent further urinary retention. Urine culture is pending. She was found to have pyuria. Recommend to hold IV Lasix for now. We will check her ABG. Avoid nephrotoxins. Adjust medication per GFR. Discontinue potassium supplement. Thank you for the consultation. We will monitor along with you. JOSHD
--- NOTE | 2016-06-01 13:31 | ABG ---
DateTimeAnalyzed 13:25:00 -_ pH ____7.392 - pCO2 ___55.3__ -mmHg pO2 ___38.1__ -mmHg HCO3- ___32.9__ -mmol/L ABE ____6.9__ -mmol/L tHb ___12.4__ -g/dL O2Hb ___69.1__ -% COHb ____1.5__ -% MetHb ____0.8__ -% sO2 ___70.7__ -% FIO2 ___21.0__ -% Drawn By as - Date/Time Notified____ 13:30:00 -_ Spontaneous_RR ___16.0__ -b/min Liter_Flow ____2.0__ -L/min Oxygen Device 1 __CANNULA - Notified By AMS - Notified Whom SHAWANDA LAMAY, RN - B 758 -mmHg tO2 ___12.0__ -Vol% Charles test N/A -
[2016-06-01 13:49] VITALS: BP 125/75; PULSE 77; RESP 18; O2SAT 98
--- NOTE | 2016-06-01 14:33 | DRSVH ---
PROCEDURE: X-RAY CHEST ONE VIEW, PORTABLE ([id number]) INDICATIONS: CHF F/U TECHNIQUE: One view of the chest was acquired. COMPARISON: [facility], CR, XR CHEST 2VW, 05/29/2016, 15:19. FINDINGS: Surgical changes and devices: None. Lungs and pleura: Small pleural effusion present in bibasilar airspace opacities, slightly increased involving the right lung base. Lung volumes are increased with flattening of the hemidiaphragms sugge sting COPD. Mediastinum: Mediastinal contours appear normal. Heart size is enlarged. Bones and chest wall: No suspicious bony lesions. Overlying soft tissues appear unremarkable. IMPRESSION: 1. Left basilar pleural fluid collection. 2. Persistent basilar airspace opacity slightly increased over the right lung base suspicious for pne umonia. Dictated by: Yang Miner [facility] Interpreted: Eliana Don MD on 06/01/2016 at 14:32 Transcribed by: KEVIN on 06/01/2016 at 14:33 Approved by: Eliana Don MD, PhD on 06/01/2016 at 17:06
--- NOTE | 2016-06-01 14:45 | NUR ---
Obtunded Entering note late. 0800 went to obtain IV access on pt and she was unable to awaken to voice, light touch or turning room lights on. This is change from previous shifts. Pt only woke when covers pulled off and moved with bedsheet, but quickly drifted back to sleep. BG 151, BP 121/67, 99% on 2L, HR 81, axillary temp 36.1. Removed oxygen and pt sating at 95% on RA. Called RT for capnography. Pt having periods of agonal breathing while sleeping then gasping to catch breath. aware. IV started and NS infusing.
--- NOTE | 2016-06-01 15:40 | CONS ---
[address] [address] CONSULTATION REPORT PATIENT: SEJAL GILL : 1930 MR#: [id number] ADMIT: 05/25/2016 JOB ID: [id number] DATE OF SERVICE: 06/01/2016 REQUESTED BY: Dr. Vogt. REASON FOR EVALUATION: Congestive heart failure. I saw and examined the patient. Please see Kapil Guerrero PA-C's notes for details. IMPRESSION: 1. Severe mitral stenosis. 2. Moderate to severe aortic stenosis. 3. 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 4. Status post mitral balloon valvuloplasty approximately 10 years ago. 5. Chronic atrial fibrillation, on chronic anticoagulation. 6. History of cerebrovascular accident x3. 7. Acute kidney injury on chronic kidney disease. 8. Unsteadiness. PLAN: I explained to the patient, her daughter and her son regarding her cardiac condition. I personally reviewed her echocardiogram. Her left ventricle is quite small with a huge left atrium and pulmonary edema. This indicates that her mitral stenosis is quite severe, obstructing flow and preventing left ventricle from filling. With a combination of mitral stenosis and aortic stenosis, it causes her to have little forward stroke volume and poor organ perfusion. With severe mitral stenosis, it causes pulmonary congestion. The patient is not a suitable candidate for open heart surgery for mitral and aortic valve replacement. There is no effective medical treatment to relieve her symptoms at this time. I believe that the patient should be considered for palliative care. Her prognosis is poor. The patient and her daughter seem to understand and accept her condition. DIANA
--- NOTE | 2016-06-01 18:57 | NUR ---
Pt had increased periods of wakefulness during rest of shift, but would still having periods of apnic breathing while sleeping. Daughter concerned that she is normally on 2L NC while sleeping and would like that reapplied. RT reconnected O2.
[2016-06-01 19:34] VITALS: BP 126/73; PULSE 82; RESP 18; O2SAT 99
--- NOTE | 2016-06-01 19:51 | PCM.PNMED ---
Subjective Date of Service Jun 01, 2016 Subjective Patient is setting with her daughter and caregiver. She appears comfortable on her 2 L oxygen. She denies fevers, chills nausea, vomiting. She sees her breathing has much improved. No other concerns today Exam Vital Signs Vital Sign - Last Date Time Temp Pulse Resp B/P Pulse Ox O2 Delivery O2 Flow Rate FiO2 06/01/16 19:34 36.5 82 18 126/73 99 Nasal Cannula 2.00 Intake and Output 05/31/16 05/31/16 06/01/16 Cumulative From/Thru 15:00 23:00 07:00 05/25/16 08:18 - 06/01/16 06:27 Intake Total 960 ml 100 ml 6435 ml Output Total 300 ml 300 ml 7807 ml Balance 660 ml -200 ml -1372 ml Intake Oral 960 ml 100 ml 5662 ml IV Total 773 ml Output Urine Total 300 ml 300 ml 5718 ml Urine/Stool Mix 2089 ml # Voids 1 13 # Bowel Movements 2 1 20 Exam General, distress regular No acute distress HEENT: NCAT Heart: 2+ diastolic murmur, irregular Lungs: Crackles right lower lobe negative for wheezing Abdomen: Flat, nontender Psych: Negative for anxiety Extremities: Negative for Edema Lab and Diagnostics Result Diagram: 06/01/1652006/01/16520 Microbiology Blood and urine cultures are pending from the emergency room. X-Rays, CTs and MRIs PROCEDURE: X-RAY CHEST ONE VIEW, PORTABLE ([id number]) INDICATIONS: SHORTNESS OF BREATH TECHNIQUE: One view of the chest was acquired. COMPARISON: [facility], CR, XR CHEST 2VW, 03/23/2016, 11:43. , CR, XR CHEST 1VW (PORTABLE), 02/17/2016, 5:07. FINDINGS: Surgical changes and devices: None. Lungs and pleura: Small pleural effusion is present and there is airspace opacity within the left lung base. Lungs otherwise are clear and hyperinflated. Mediastinum: Mediastinal contours appear normal. Heart size is normal. Bones and chest wall: No suspicious bony lesions. Overlying soft tissues appear unremarkable. IMPRESSION: Small left pleural effusion and basilar airspace opacity consistent with compressive atelectasis versus pneumonia. Correlate clinically. Dictated by: Yang MUNOZ Interpreted: Eliana Don MD on 05/25/2016 at 9 :57 Transcribed by: KEVIN on 05/25/2016 at 10:00 Approved by: Eliana Don MD, PhD on 05/25/2016 at 16:57 Cardiac Echo Impressions Echocardiogram Report Name: SEJAL GILL JStudy Date: 05/25/2016 Heigh t: 65 in Hospital Exam Location: [facility] Weigh t: 100 lb Gender: Female BSA: 1.5 m2 : 1930 Age: 85 yrs BP: 1 60/82 mmHg Reason For Study: Congestive Heart Failure Ordering Physician: HOSPITALIST [facility] Performed By: Marianne Weeks Referring Physician: RONEN DIAZ Interpretation Summary The left ventricular cavity is small. There is mild concentric left ventricular hypertrophy. The ejection fraction is estimated to be 60-65%. Diastolic function could not be accurately assessed due to atrial fibrillation. The right ventricle is normal in size and function. The mitral valve leaflets are severely calcified. There is moderate calcification extending into the subvalvular apparatus. There is moderate mitral stenosis. The mitral valve mean gradient is 5.7 mmHg. There is trace mitral regurgitation. The aortic valve is moderately calcified. The aortic valve mean gradient is 19.9 mmHg. There is moderate to severe aortic stenosis. There is moderate aortic regurgitation. The left atrium is severely dilated. Spontaneous contrast in LA. The tricuspid valve is normal in structure and function. There is mild tricuspid regurgitation. The right ventricular systolic pressure is estimated at 26 mmHg assuming a right atrial pressure of 3 mm Hg. There is no pericardial effusion. There is a moderate left-sided pleural effusion. Compared to the previous study on 08/14/2015, the pleural effusion is new. Assessment & Plan The patient is an 85 year old female with a history of chronic atrial fibrillation on warfarin, rheumatic heart disease complicated by mitral stenosis , CKD stage 3, and HTN presents to the ER via EMS due to increasing SOB for several weeks. Acute on chronic respiratory failure present on admission due acute on chronic to diastolic heart failure - Patient found to have hypoxia, and confusion due to hypoxia, with shortness of breath secondary to congestive heart failure and left pleural effusion with atelectasis - This appears to be primarily due to Acute on chronic diastolic congestive heart failure - Echocardiogram ordered and results are as above - Called her manager health today and he thinks daily dose of lasix is not a bad idea. We will consider a cardiology consult. - Continue IV Lasix 40 mg twice a day , potassium today is 3.6, TSH is 0.257 - Oxygen - Solu-Medrol 125 mg IV were given in the emergency room we have held further doses. - Ordered CXR due to worsened symptoms today: Showed a developing RLL PNA: Switched her to Levaquin from Ceftriaxone, solumedrol, duonebs and albuterol are ordered. Urine strep and legionella are also ordered: Stopped steroids as she has improved. Switched Levaquin to PO, renally dosed. - Cardiology has seen patient and informed her she will not be a good surgical candidate for mitral valve repair. She is understanding of their consult recommendation. Acute Renal Failure: Due to Diuresis for CHF. Stopped Lasix, Losartan medications. Cardiology is consulted, they will see the patient to provide recommendations which will be useful for goals of care. - Nephrology was also consulted in the light of her sharply elevated BUN and worsened renal function. Hyperkalemia: 5.6 today. 5 g PO Kayexalate was given on 06/01/16, 50 mg Kayexalate on 06/02/16.. Stopped Potassium supplementation. Follow-up renal function labs. Chronic atrial fibrillation/atrial flutter - Continue warfarin per pharmacy, INR today is within therapeutic range - Telemetry monitoring - Rate control History of rheumatic heart disease - Patient appears to have progression of aortic stenosis from mild to severe which may be contributing to her congestive heart failure - Patient also has moderate mitral valve stenosis after balloon angioplasty and has a severely calcified valve. This also likely contributing to her diastolic congestive heart failure. - Continue telemetry monitoring - cardiology was consulted and we appreciate the recommendations Chronic kidney disease stage III - Patient was given a bolus of normal saline in the emergency room prior to her diagnosis of congestive heart failure. - Continue Lasix 40 mg IV twice a day for now: dose cut in half 05/30/16: Discontinued on 05/31/16 - Monitor renal function very closely - Monitor electrolytes daily and replace deficiencies as needed. Dementia/expressive aphasia -This is quite evident today. -She lives in a condominium with her 91-year-old -Family are aware that she may need correction placement or 24-hour care at home. Apparently the family is able to afford that. -She has had a physical therapy evaluation confirming her need for skilled care either at home or a correction setting. Hypokalemia -Resolved Disposition: Will discuss her goals with the help of cardiology. Patient will need to be hospitalized for another 24 hours for further evaluation and treatment of the above problems. Anticipate she will be stable enough to go home tomorrow with o/p cardiology follow up.. GI Prophylaxis: Proton Pump Inhibitor VTE Prophylaxis: Theraputic Anticoag with Warfarin VTE Mechanical Devices: Intermittant Pneumatic CD Resuscitation Status: DNR/DNI:Do Not Resuscitate/Intubate Mary Vogt DO Jun 01, 2016 19:51
[2016-06-01] MEDS: 0.9% Sodium Chloride 1,000 ML IV SCH (20:06)
[2016-06-02 04:25] VITALS: BP 144/76; PULSE 72; RESP 18; O2SAT 97
--- NOTE | 2016-06-02 05:42 | PCM.PNMED ---
Subjective Date of Service Jun 02, 2016 Exam Vital Signs Vital Sign - Last Date Time Temp Pulse Resp B/P Pulse Ox O2 Delivery O2 Flow Rate FiO2 06/02/16 04:25 36.0 72 18 144/76 97 Nasal Cannula 2.00 Intake and Output 06/01/16 06/01/16 06/02/16 Cumulative From/Thru 15:00 23:00 07:00 05/25/16 08:18 - 06/02/16 04:28 Intake Total 1771 ml 8206 ml Output Total 550 ml 8357 ml Balance 1221 ml -151 ml Intake Oral 806 ml 6468 ml IV Total 965 ml 1738 ml Output Urine Total 550 ml 6268 ml Urine/Stool Mix 2089 ml # Voids 13 # Bowel Movements 0 20 Lab and Diagnostics Result Diagram: 06/01/16 0506/01/16 05 Microbiology Blood and urine cultures are pending from the emergency room. X-Rays, CTs and MRIs PROCEDURE: X-RAY CHEST ONE VIEW, PORTABLE ([id number]) INDICATIONS: SHORTNESS OF BREATH TECHNIQUE: One view of the chest was acquired. COMPARISON: [facility], CR, XR CHEST 2VW, 03/23/2016, 11:43. [facility], CR, XR CHEST 1VW (PORTABLE), 02/17/2016, 5:07. FINDINGS: Surgical changes and devices: None. Lungs and pleura: Small pleural effusion is present and there is airspace opacity within the left lung base. Lungs otherwise are clear and hyperinflated. Mediastinum: Mediastinal contours appear normal. Heart size is normal. Bones and chest wall: No suspicious bony lesions. Overlying soft tissues appear unremarkable. IMPRESSION: Small left pleural effusion and basilar airspace opacity consistent with compressive atelectasis versus pneumonia. Correlate clinically. Dictated by: Yang Miner RRA Interpreted: Eliana Don MD on 05/25/2016 at 9 :57 Transcribed by: KEVIN on 05/25/2016 at 10:00 Approved by: Eliana Don MD, PhD on 05/25/2016 at 16:57 Cardiac Echo Impressions Echocardiogram Report Name: SEJAL GILL JStudy Date: 05/25/2016 Heigh t: 65 in Hospital Exam Location: [facility] Weigh t: 100 lb Gender: Female BSA: 1.5 m2 : 1930 Age: 85 yrs BP: 1 60/82 mmHg Reason For Study: Congestive Heart Failure Ordering Physician: HOSPITALIST [facility] Performed By: Marianne Weeks Referring Physician: RONEN DIAZ Interpretation Summary The left ventricular cavity is small. There is mild concentric left ventricular hypertrophy. The ejection fraction is estimated to be 60-65%. Diastolic function could not be accurately assessed due to atrial fibrillation. The right ventricle is normal in size and function. The mitral valve leaflets are severely calcified. There is moderate calcification extending into the subvalvular apparatus. There is moderate mitral stenosis. The mitral valve mean gradient is 5.7 mmHg. There is trace mitral regurgitation. The aortic valve is moderately calcified. The aortic valve mean gradient is 19.9 mmHg. There is moderate to severe aortic stenosis. There is moderate aortic regurgitation. The left atrium is severely dilated. Spontaneous contrast in LA. The tricuspid valve is normal in structure and function. There is mild tricuspid regurgitation. The right ventricular systolic pressure is estimated at 26 mmHg assuming a right atrial pressure of 3 mm Hg. There is no pericardial effusion. There is a moderate left-sided pleural effusion. Compared to the previous study on 08/14/2015, the pleural effusion is new. Assessment & Plan The patient is an 85 year old female with a history of chronic atrial fibrillation on warfarin, rheumatic heart disease complicated by mitral stenosis , CKD stage 3, and HTN presents to the ER via EMS due to increasing SOB for several weeks. Acute on chronic respiratory failure present on admission due acute on chronic to diastolic heart failure - Patient found to have hypoxia, and confusion due to hypoxia, with shortness of breath secondary to congestive heart failure and left pleural effusion with atelectasis - This appears to be primarily due to Acute on chronic diastolic congestive heart failure - Echocardiogram ordered and results are as above - Called her conference assistant today and he thinks daily dose of lasix is not a bad idea. We will consider a cardiology consult. - Continue IV Lasix 40 mg twice a day , potassium today is 3.6, TSH is 0.257 - Oxygen - Solu-Medrol 125 mg IV were given in the emergency room we have held further doses. - Ordered CXR due to worsened symptoms today: Showed a developing RLL PNA: Switched her to Levaquin from Ceftriaxone, solumedrol, duonebs and albuterol are ordered. Urine strep and legionella are also ordered: Stopped steroids as she has improved. Switched Levaquin to PO, renally dosed. - Cardiology has seen patient and informed her she will not be a good surgical candidate for mitral valve repair. She is understanding of their consult recommendation. Acute Renal Failure: Due to Diuresis for CHF. Stopped Lasix, Losartan medications. Cardiology is consulted, they will see the patient to provide recommendations which will be useful for goals of care. - Nephrology was also consulted in the light of her sharply elevated BUN and worsened renal function. Hyperkalemia: 5.6 today. 5 g PO Kayexalate was given on 06/01/16, 50 mg Kayexalate on 06/02/16.. Stopped Potassium supplementation. Follow-up renal function labs. Chronic atrial fibrillation/atrial flutter - Continue warfarin per pharmacy, INR today is within therapeutic range - Telemetry monitoring - Rate control History of rheumatic heart disease - Patient appears to have progression of aortic stenosis from mild to severe which may be contributing to her congestive heart failure - Patient also has moderate mitral valve stenosis after balloon angioplasty and has a severely calcified valve. This also likely contributing to her diastolic congestive heart failure. - Continue telemetry monitoring - cardiology was consulted and we appreciate the recommendations Chronic kidney disease stage III - Patient was given a bolus of normal saline in the emergency room prior to her diagnosis of congestive heart failure. - Continue Lasix 40 mg IV twice a day for now: dose cut in half 05/30/16: Discontinued on 05/31/16 - Monitor renal function very closely - Monitor electrolytes daily and replace deficiencies as needed. Dementia/expressive aphasia -This is quite evident today. -She lives in a condominium with her 91-year-old -Family are aware that she may need jail placement or 24-hour care at home. Apparently the family is able to afford that. -She has had a physical therapy evaluation confirming her need for skilled care either at home or a jail setting. Hypokalemia -Resolved Disposition: Will discuss her goals with the help of cardiology. Patient will need to be hospitalized for another 24 hours for further evaluation and treatment of the above problems. Anticipate she will be stable enough to go home tomorrow with o/p cardiology follow up.. GI Prophylaxis: Proton Pump Inhibitor VTE Prophylaxis: Theraputic Anticoag with Warfarin VTE Mechanical Devices: Intermittant Pneumatic CD Resuscitation Status: DNR/DNI:Do Not Resuscitate/Intubate Mary Vogt DO Jun 02, 2016 05:42
[2016-06-02 06:26] LABS: BASOPHILS % (AUTO) 0.5 % (0-3); EOSINOPHILS % (AUTO) 2.8 % (0-5); MONOCYTES % (AUTO) 10.1 % (4-12); Mean Corpuscular Hemoglobin 29.4 pg (27.0-35.0); Mean Corpuscular Volume 92.9 fL (81-100); NEUTROPHILS % (AUTO) 77.1 % (40-74); Platelet Count 200 bil/L (150-400)
[2016-06-02 06:31] LABS: INR 3.77 ratio
[2016-06-02 08:04] VITALS: PULSE 74; RESP 28; O2SAT 95
--- NOTE | 2016-06-02 08:06 | NUR ---
ETCO2 / Resp update Pt seen this morning, asleep in bed with ETCO2 monitor alarming and reading 4. Pt awoke to light touch and name. Discontinued ETCO2 due to unreliable readings. Pt observed having consistent and regular periods of apnea for up to 15 seconds. She then becomes tachypnic for about 30 seconds and the cycle repeats. Lungs are clear but respirations are very shallow. Pt in no distress, placed on 2L NC for sats of 95%. Will continue to follow.
[2016-06-02] MEDS: Fluticasone-Salmeterol 500-50 Inhaler INHALATION SCH ×2 (09:10→21:21)
[2016-06-02] MEDS: Pantoprazole 20 mg ER24 Tablet PO SCH (09:10)
--- NOTE | 2016-06-02 11:04 | PCM.PNNEPH ---
Subjective Date of Service Jun 02, 2016 Subjective She is more up and about today. She is being fed by her . She is not able to provide any meaningful history. Exam Vital Signs Vital Sign - Last Date Time Temp Pulse Resp B/P Pulse Ox O2 Delivery O2 Flow Rate FiO2 06/02/16 08:04 74 28 95 Nasal Cannula 2.00 06/02/16 04:25 36.0 144/76 Intake and Output 06/01/16 06/01/16 06/02/16 Cumulative From/Thru 15:00 23:00 07:00 05/25/16 08:18 - 06/02/16 05:56 Intake Total 1771 ml 441 ml 8647 ml Output Total 550 ml 400 ml 8757 ml Balance 1221 ml 41 ml -110 ml Intake Oral 806 ml 0 ml 6468 ml IV Total 965 ml 441 ml 2179 ml Output Urine Total 550 ml 400 ml 6668 ml Urine/Stool Mix 2089 ml # Voids 13 # Bowel Movements 0 2 22 Exam General appearance: Chronically ill-looking, confused, follow commands. HEENT: Atraumatic. Dry mucous membranes. PERRLA. No lymphadenopathy. No thyroid enlargement. No JVD. Heart: Irregular rhythm. Systolic murmur noted. Lungs: Poor air entry bilaterally. Occasional Coarse crackles noted. Abdomen: Soft active. Bowel sounds. Extremity: No edema. Cyanosis. Diffuse muscle, atrophy. Lab and Diagnostics Result Diagram: 06/02/16 0535 06/02/16 0725 Microbiology Blood and urine cultures are pending from the emergency room. X-Rays, CTs and MRIs PROCEDURE: X-RAY CHEST ONE VIEW, PORTABLE ([id number]) INDICATIONS: SHORTNESS OF BREATH TECHNIQUE: One view of the chest was acquired. COMPARISON: [facility], CR, XR CHEST 2VW, 03/23/2016, 11:43. [facility], CR, XR CHEST 1VW (PORTABLE), 02/17/2016, 5:07. FINDINGS: Surgical changes and devices: None. Lungs and pleura: Small pleural effusion is present and there is airspace opacity within the left lung base. Lungs otherwise are clear and hyperinflated. Mediastinum: Mediastinal contours appear normal. Heart size is normal. Bones and chest wall: No suspicious bony lesions. Overlying soft tissues appear unremarkable. IMPRESSION: Small left pleural effusion and basilar airspace opacity consistent with compressive atelectasis versus pneumonia. Correlate clinically. Dictated by: Yang Miner RRA Interpreted: Eliana Don MD on 05/25/2016 at 9 :57 Transcribed by: KEVIN on 05/25/2016 at 10:00 Approved by: Eliana Don MD, PhD on 05/25/2016 at 16:57 Cardiac Echo Impressions Echocardiogram Report Name: SEJAL GILL JStudy Date: 05/25/2016 Heigh t: 65 in Hospital Exam Location: [facility] Weigh t: 100 lb Gender: Female BSA: 1.5 m2 : 1930 Age: 85 yrs BP: 1 60/82 mmHg Reason For Study: Congestive Heart Failure Ordering Physician: HOSPITALIST [facility] Performed By: Marianne Weeks Referring Physician: RONEN DIAZ Interpretation Summary The left ventricular cavity is small. There is mild concentric left ventricular hypertrophy. The ejection fraction is estimated to be 60-65%. Diastolic function could not be accurately assessed due to atrial fibrillation. The right ventricle is normal in size and function. The mitral valve leaflets are severely calcified. There is moderate calcification extending into the subvalvular apparatus. There is moderate mitral stenosis. The mitral valve mean gradient is 5.7 mmHg. There is trace mitral regurgitation. The aortic valve is moderately calcified. The aortic valve mean gradient is 19.9 mmHg. There is moderate to severe aortic stenosis. There is moderate aortic regurgitation. The left atrium is severely dilated. Spontaneous contrast in LA. The tricuspid valve is normal in structure and function. There is mild tricuspid regurgitation. The right ventricular systolic pressure is estimated at 26 mmHg assuming a right atrial pressure of 3 mm Hg. There is no pericardial effusion. There is a moderate left-sided pleural effusion. Compared to the previous study on 08/14/2015, the pleural effusion is new. Plan Impression 1. Acute kidney injury on chronic kidney disease stage 3. - due to intravascular volume depletion from overdiuresis and poor oral intake. - improving. 2. Worsening leukocytosis. Suspected hospital-acquired pneumonia versus aspiration pneumonia. 3. Hyperkalemia,resolved. 4. Chronic obstructive pulmonary disease. 5. Chronic atrial fibrillation on anticoagulant. 6. Rheumatic heart disease complicated by mitral stenosis, status post balloon angioplasty. 7. CHF related to valvular heart disease. 8. Hypertension, with hypertensive nephrosclerosis. 9. Altered mental status. PLAN: continue to hold lasix and losartan. d/c IVF. no fluid restriction required at this moment. keep intake and output balanced. avoid nephrotoxins. repeat BMP in am. Rick Cuellar MD Jun 02, 2016 11:04
--- NOTE | 2016-06-02 13:41 | PCM.PALLBR ---
Palliative Care Recommendation Summary of palliative recommendations: -Symptom management (Pain/other): per Attending -DPOA/Advanced Directives/POLST 1. Code Status changed to DNR/DNI today after discussion with POGrace Palacio. 2. Advanced Directives: No prior paperwork. Family reconsidering options and are interested in hospice info visit after lengthy counseling with Dr. Graham 06/01. 3. No prior POLST: After family discussion with Dr. Graham 06/01, POA daughter Pia signed a POLST that states: DNR/DNI, no artificial nutrition, limited interventions to include IV medications and fluids, but no transfer to CCU, No pressors, etc. Original 06/01 POLST now in paper chart and copies given to adult children at bedside . 06/02: Dtr Pia met with Hospice today and has enrolled her mother. Plan is to get DME into home tomorrow and likely discharge pt 06/03 with hospice at home and continuing hired caregivers. Attending Dr. Vogt updated on plan. -Family/emotional support: 4 living adult children. 2 local adult children ( Pia and Kaila) help their elderly parents. There is hired CG support 3 days a week for 15hours/day for [employer] currently. Palliative Care Prognosis: Likely 3 to 6 months or less. These patient is eligible for hospice enrollment based on her combined heart and lung disease. Pulmonary Dr. Price: 02/2015 FPTs showed severe COPD with severe reduction in diffusion capacity causing both emphysema and interstitial lung disease. delivery consultant 06/01 Dr. Latosha Olson: explained to the patient, her daughter and her son patient's cardiac condition. I personally reviewed her echocardiogram. Her left ventricle is quite small with a huge left atrium and pulmonary edema. This indicates that her mitral stenosis is quite severe, obstructing flow and preventing left ventricle from filling. With a combination of mitral stenosis and aortic stenosis, it causes her to have little forward stroke volume and poor organ perfusion. With severe mitral stenosis, it causes pulmonary congestion. The patient is not a suitable candidate for open heart surgery for mitral and aortic valve replacement. There is no effective medical treatment to relieve her symptoms at this time. I believe that the patient should be considered for palliative care. Her prognosis is poor. The patient and her daughter seem to understand and accept her condition. Patient Goals: 1. Capacity: pt with limited understanding of complex health issues due to mild to moderate dementia and expressive aphasia s/p 3 CVAs. Dtr Pia and her son Kaila are local family who help with her care and health decisions. 2. Family is considering a plan that would keep patient at home with no hospital re-admission in future, if she could be managed for symptoms of dyspnea at home with good comfort. 3. Family recognizes her debility and poor prognosis and are willing to plan for this. 06/01 Family Meeting with Palliative Care: After allowing time for Pia, Kaila and Dusty to meet with Dr. Lux and review a blank POLST, Dr. Graham met with Pia and Dusty (Kaila went back to work) to discuss POLST more specifically, answering numerous questions on heart failure prognosis, hospice care, hospice eligibility , etc. POLST completed 06/01, details above. Palliative Care Team will sign off today as goals are clear, POLST on chart and no symptom management required by our team. Thank you for the consult. Problems: Resuscitation Status Resuscitation Status: DNR/DNI:Do Not Resuscitate/Intubate POLST Updates/Changes Previous POLST?: No POLST Last Review Date: Jun 01, 2016 POLST Discussed with: Health Care Agent (DPOAHC) Total time 25 minutes; >50% face to face with patient and/or family, providing counselling regarding plans and recommendations, and in care coordination with his/her medical teams. Palliative Brief Note Date of Service Jun 02, 2016 . Patient Identification: The patient is an 85 year old female with a history of chronic atrial fibrillation on warfarin, rheumatic heart disease complicated by mitral stenosis, CKD stage 3, and HTN who presents to the ER via EMS due to increasing SOB for several weeks. At home she has home oxygen She was admitted for evaluation and treatment of acute on chronic respiratory failure likely due to acute exacerbation of CHF. Hospital Course: Today is Hospital Day 8. Palliative Care asked on 06/01 to help family identify their goals of care. Patient has continued to have worsening kidney function and end-stage heart failure as well as oxygen dependent COPD ( emphysema and interstitial lung disease). Overnight she has had witnessed 15 sec apnea followed by tachypnea x 30s, but is awake and alert, enjoying breakfast this morning. General: alert, smiling, in bed with 60degree elevation of HOB Mental Status: pleasantly confused HEENT: unremarkable Neck: no JVD Lungs: bibasilar crackles Heart: S1,S2, holosystolic murmur. Abdomen: soft nondistended, nontender Ext: no edema, erythema or cyanosis. 06/02/16 0535 Brooke Graham MD Jun 02, 2016 13:41
--- NOTE | 2016-06-02 14:40 | NUR ---
ACTIVITY Patient sleeping on/off throughout shift. Will awaken to light touch/voice and is alert to self, speech becomes mumbled when asked about where she was and what year it was. Ate small amounts of breakfast and lunch with family assisting with feeding. Incontinent of stool. Sample sent for C. Diff testing and came back negative. Continues with O2 @ 2 LPM. Appears comfortable and denies any pain. Hospice info visit done today. Continue to monitor during hourly rounding.
[2016-06-02] MEDS: 0.9% Sodium Chloride 1,000 ML IV SCH (14:55)
[2016-06-02 15:02] VITALS: BP 128/72; PULSE 69; RESP 16; O2SAT 97
--- NOTE | 2016-06-02 15:17 | NUR ---
Social Work- Readiness for Discharge Data: EMR reviewed. Pt is on day 8 of hospitalization for CHF per H&P. ALEC met with pt and daughter Pia regarding discharge plan. SW explained that pt is medically stable to leave the hospital, anticipate discharge tomorrow. SW encouraged Pia to finalize caregiving plans and needs. Daughter informed SW that [employer] company was coming to hospital to assess pt for caregiving needs today. ALEC received call from Serena at [facility] stating that pt has [facility] today at noon. SW followed up with pt and daughter at bedside after [facility]. Pt is signed on to hospice at this time. ALEC spoke with Serena from hospice regarding pt's discharge plan. Serena informed SW that pt's DME will arrive tomorrow, with equipment hire manager services beginning Sunday. ALEC informed daughter of this. Pt will discharge home when hospice DME arrives. Pt and daughter updated and agreeable to plan. Pt to discharge home with hospice and caregiving, daughter to transport via POV. SW will continue to follow. Assessment: Pt who would benefit from hospice and 16/10 caregiving. Plan: Pt to discharge home with hospice and caregiving, daughter to transport via POV. SW will continue to follow. Jaelyn Yoo MSW
--- NOTE | 2016-06-02 15:46 | PCM.PHAPRO ---
Progress Date of Service: Jun 02, 2016 Requesting Provider: Praveen Hughes MD fatigue and weakness Progress Date of Service: Jun 01, 2016 WARFARIN DOSING PER PHARMACY - for atrial fibrillation Day 8th inpatient: Home dose: 5mg MoWeFr, 2.5mg all other days 6-May 7-May 31-Jun 01-Jun 02-May 2.61 2.17 2.12 2.69 3.77 -0.76 -0.44 -0.05 0.57 1.08 2 MG 3 3 2.5 hold Drug interaction with Levaquin resulted in supratherapeutic INR today even with Levaquin changed to po last night. No sign/symptoms of bruises and bleeding. Plan: Hold warfarin dose tonight and reassess tomorrow. INR ordered until 06/05 Pharmacy will continue to monitor INR/CBC/signs and symptoms of bleeding Pharmacy appreciates consult and will continue to monitor. Thank You Michael Armstrong, PharmD, [facility] John Armstrong Jun 02, 2016 15:46
--- NOTE | 2016-06-02 19:44 | PCM.PNMED ---
Subjective Date of Service Jun 02, 2016 Subjective Patient is seen and examined. She appears very relaxed and comfortable. She sees she is feeling better and breathing better. Her leukocytosis has resolved. Her family has met with palliative care. She denies fevers chills nausea vomiting and poor appetite. CT is working with her. Exam Vital Signs Vital Sign - Last Date Time Temp Pulse Resp B/P Pulse Ox O2 Delivery O2 Flow Rate FiO2 06/02/16 15:02 36.3 69 16 128/72 97 Nasal Cannula 2.00 Intake and Output 06/01/16 06/01/16 06/02/16 Cumulative From/Thru 15:00 23:00 07:00 05/25/16 08:18 - 06/02/16 05:56 Intake Total 1771 ml 441 ml 8647 ml Output Total 550 ml 400 ml 8757 ml Balance 1221 ml 41 ml -110 ml Intake Oral 806 ml 0 ml 6468 ml IV Total 965 ml 441 ml 2179 ml Output Urine Total 550 ml 400 ml 6668 ml Urine/Stool Mix 2089 ml # Voids 13 # Bowel Movements 0 2 22 IVs and Medications IV Fluids 40 mL/h NSS Medications Reviewed: Medications were reviewed in detail Lab and Diagnostics Result Diagram: 06/02/16 0535 06/02/16 0725 Microbiology Blood and urine cultures are pending from the emergency room. X-Rays, CTs and MRIs PROCEDURE: X-RAY CHEST ONE VIEW, PORTABLE ([id number]) INDICATIONS: SHORTNESS OF BREATH TECHNIQUE: One view of the chest was acquired. COMPARISON: [facility], CR, XR CHEST 2VW, 03/23/2016, 11:43. [facility], CR, XR CHEST 1VW (PORTABLE), 02/17/2016, 5:07. FINDINGS: Surgical changes and devices: None. Lungs and pleura: Small pleural effusion is present and there is airspace opacity within the left lung base. Lungs otherwise are clear and hyperinflated. Mediastinum: Mediastinal contours appear normal. Heart size is normal. Bones and chest wall: No suspicious bony lesions. Overlying soft tissues appear unremarkable. IMPRESSION: Small left pleural effusion and basilar airspace opacity consistent with compressive atelectasis versus pneumonia. Correlate clinically. Dictated by: Yang MUNOZ Interpreted: Eliana Don MD on 05/25/2016 at 9 :57 Transcribed by: KEVIN on 05/25/2016 at 10:00 Approved by: Eliana Don MD, PhD on 05/25/2016 at 16:57 Cardiac Echo Impressions Echocardiogram Report Name: SEJAL GILL JStudy Date: 05/25/2016 Kavya t: 65 in Hospital Exam Location: [facility] Weigh t: 100 lb Gender: Female BSA: 1.5 m2 : 1930 Age: 85 yrs BP: 1 60/82 mmHg Reason For Study: Congestive Heart Failure Ordering Physician: HOSPITALIST [facility] Performed By: Marianne Weeks Referring Physician: RONEN DIAZ Interpretation Summary The left ventricular cavity is small. There is mild concentric left ventricular hypertrophy. The ejection fraction is estimated to be 60-65%. Diastolic function could not be accurately assessed due to atrial fibrillation. The right ventricle is normal in size and function. The mitral valve leaflets are severely calcified. There is moderate calcification extending into the subvalvular apparatus. There is moderate mitral stenosis. The mitral valve mean gradient is 5.7 mmHg. There is trace mitral regurgitation. The aortic valve is moderately calcified. The aortic valve mean gradient is 19.9 mmHg. There is moderate to severe aortic stenosis. There is moderate aortic regurgitation. The left atrium is severely dilated. Spontaneous contrast in LA. The tricuspid valve is normal in structure and function. There is mild tricuspid regurgitation. The right ventricular systolic pressure is estimated at 26 mmHg assuming a right atrial pressure of 3 mm Hg. There is no pericardial effusion. There is a moderate left-sided pleural effusion. Compared to the previous study on 08/14/2015, the pleural effusion is new. Assessment & Plan The patient is an 85 year old female with a history of chronic atrial fibrillation on warfarin, rheumatic heart disease complicated by mitral stenosis , CKD stage 3, and HTN presents to the ER via EMS due to increasing SOB for several weeks. Acute on chronic respiratory failure present on admission due acute on chronic to diastolic heart failure - Patient found to have hypoxia, and confusion due to hypoxia, with shortness of breath secondary to congestive heart failure and left pleural effusion with atelectasis - This appears to be primarily due to Acute on chronic diastolic congestive heart failure - Echocardiogram ordered and results are as above - Called her muck operator today and he thinks daily dose of lasix is not a bad idea. We will consider a cardiology consult. - Continue IV Lasix 40 mg twice a day , potassium today is 3.6, TSH is 0.257 - Oxygen - Solu-Medrol 125 mg IV were given in the emergency room we have held further doses. - Ordered CXR due to worsened symptoms today: Showed a developing RLL PNA: Switched her to Levaquin from Ceftriaxone, solumedrol, duonebs and albuterol are ordered. Urine strep and legionella are also ordered: Stopped steroids as she has improved. Switched Levaquin to PO, renally dosed. - Cardiology has seen patient and informed her she will not be a good surgical candidate for mitral valve repair. She is understanding of their consult recommendation. Acute on chronic Renal Failure: Due to Diuresis for CHF. Stopped Lasix, Losartan medications. Cardiology is consulted, they will see the patient to provide recommendations which will be useful for goals of care. Patient and family met with palliative care made a decision to go home on hospice on 06/02/16 - Nehrology was also consulted in the light of her sharply elevated BUN and worsened renal function.: Nephrotoxic medications were discontinued. Renal function is improving 06/02/16. Hyperkalemia: 5.6 today. 5 g PO Kayexalate was given on 06/01/16, 50 mg Kayexalate on 06/02/16.. Stopped Potassium supplementation. Follow-up renal function labs. Resolved on 06/02/16 Chronic atrial fibrillation/atrial flutter - Continue warfarin per pharmacy, INR today is 3.7. Coumadin discontinued. 01/09 - Telemetry monitoring - Rate control History of rheumatic heart disease - Patient appears to have progression of aortic stenosis from mild to severe which may be contributing to her congestive heart failure - Patient also has moderate mitral valve stenosis after balloon angioplasty and has a severely calcified valve. This also likely contributing to her diastolic congestive heart failure. - Continue telemetry monitoring - cardiology was consulted and we appreciate the recommendations Chronic kidney disease stage III - Patient was given a bolus of normal saline in the emergency room prior to her diagnosis of congestive heart failure. - Continue Lasix 40 mg IV twice a day for now: dose cut in half 05/30/16: Discontinued on 05/31/16 - Monitor renal function very closely - Monitor electrolytes daily and replace deficiencies as needed. Dementia/expressive aphasia -This is quite evident today. -She lives in a condominium with her 91-year-old -Family are aware that she may need residential placement or 24-hour care at home. Apparently the family is able to afford that. -She has had a physical therapy evaluation confirming her need for skilled care either at home or a residential setting. Hypokalemia -Resolved Disposition: Will discuss her goals with the help of cardiology. Patient will need to be hospitalized for another 24 hours for further evaluation and treatment of the above problems. Anticipate she will be stable enough to go home tomorrow with o/p cardiology follow up.. GI Prophylaxis: Proton Pump Inhibitor VTE Prophylaxis: Theraputic Anticoag with Warfarin VTE Mechanical Devices: Intermittant Pneumatic CD Resuscitation Status: DNR/DNI:Do Not Resuscitate/Intubate Mary Vogt DO Jun 02, 2016 19:44
[2016-06-02 20:12] VITALS: BP 118/65; PULSE 73; RESP 16; O2SAT 94
--- NOTE | 2016-06-03 03:18 | NUR ---
Activity Pt awake most of shift. When asleep has periods of apnea. Remained in bed. Stated she's fine and has no pain, no shortness of breath on 2L via NC. Care continues
[2016-06-03 05:48] VITALS: BP 134/65; PULSE 76; RESP 16; O2SAT 95
[2016-06-03 05:58] LABS: BASOPHILS % (AUTO) 0.3 % (0-3); EOSINOPHILS % (AUTO) 4.9 % (0-5); MONOCYTES % (AUTO) 10.8 % (4-12); Mean Corpuscular Hemoglobin 29.6 pg (27.0-35.0); Mean Corpuscular Volume 92.4 fL (81-100); NEUTROPHILS % (AUTO) 72.4 % (40-74); Platelet Count 190 bil/L (150-400)
[2016-06-03 06:28] LABS: Phosphorus 3.1 mg/dL (2.5-4.9)
[2016-06-03] MEDS: Pantoprazole 20 mg ER24 Tablet PO SCH (08:09)
[2016-06-03] MEDS: Fluticasone-Salmeterol 500-50 Inhaler INHALATION SCH (08:09)
--- NOTE | 2016-06-03 12:19 | PCM.PNNEPH ---
Subjective Date of Service Jun 03, 2016 Subjective no acute issue, will be d/c'd home with hospice. Family is at the bedside. Exam Vital Signs Vital Sign - Last Date Time Temp Pulse Resp B/P Pulse Ox O2 Delivery O2 Flow Rate FiO2 06/03/16 08:12 Supplement Oxygen 06/03/16 05:48 36.6 76 16 134/65 95 2.00 Intake and Output 06/02/16 06/02/16 06/03/16 Cumulative From/Thru 15:00 23:00 07:00 05/25/16 08:18 - 06/02/16 19:01 Intake Total 620 ml 9267 ml Output Total 500 ml 9257 ml Balance 120 ml 10 ml Intake Oral 620 ml 7088 ml IV Total 2179 ml Output Urine Total 500 ml 7168 ml Urine/Stool Mix 2089 ml # Voids 13 # Bowel Movements 2 24 Exam General appearance: Chronically ill-looking, confused, follow commands. HEENT: Atraumatic. Dry mucous membranes. PERRLA. No lymphadenopathy. No thyroid enlargement. No JVD. Heart: Irregular rhythm. Systolic murmur noted. Lungs: Poor air entry bilaterally. Occasional Coarse crackles noted. Abdomen: Soft active. Bowel sounds. Extremity: No edema. Cyanosis. Diffuse muscle, atrophy. Lab and Diagnostics Result Diagram: 06/03/1651806/03/16518 Microbiology Blood and urine cultures are pending from the emergency room. X-Rays, CTs and MRIs PROCEDURE: X-RAY CHEST ONE VIEW, PORTABLE ([id number]) INDICATIONS: SHORTNESS OF BREATH TECHNIQUE: One view of the chest was acquired. COMPARISON: [facility], CR, XR CHEST 2VW, 03/23/2016, 11:43. [facility], CR, XR CHEST 1VW (PORTABLE), 02/17/2016, 5:07. FINDINGS: Surgical changes and devices: None. Lungs and pleura: Small pleural effusion is present and there is airspace opacity within the left lung base. Lungs otherwise are clear and hyperinflated. Mediastinum: Mediastinal contours appear normal. Heart size is normal. Bones and chest wall: No suspicious bony lesions. Overlying soft tissues appear unremarkable. IMPRESSION: Small left pleural effusion and basilar airspace opacity consistent with compressive atelectasis versus pneumonia. Correlate clinically. Dictated by: Yang Miner RRA Interpreted: Eliana Don MD on 05/25/2016 at 9 :57 Transcribed by: KEVIN on 05/25/2016 at 10:00 Approved by: Eliana Don MD, PhD on 05/25/2016 at 16:57 Cardiac Echo Impressions Echocardiogram Report Name: SEJAL GILL JStudy Date: 05/25/2016 Heigh t: 65 in Hospital Exam Location: [facility] Weigh t: 100 lb Gender: Female BSA: 1.5 m2 : 1930 Age: 85 yrs BP: 1 60/82 mmHg Reason For Study: Congestive Heart Failure Ordering Physician: HOSPITALIST [facility] Performed By: Marianne Weeks Referring Physician: RONEN DIAZ Interpretation Summary The left ventricular cavity is small. There is mild concentric left ventricular hypertrophy. The ejection fraction is estimated to be 60-65%. Diastolic function could not be accurately assessed due to atrial fibrillation. The right ventricle is normal in size and function. The mitral valve leaflets are severely calcified. There is moderate calcification extending into the subvalvular apparatus. There is moderate mitral stenosis. The mitral valve mean gradient is 5.7 mmHg. There is trace mitral regurgitation. The aortic valve is moderately calcified. The aortic valve mean gradient is 19.9 mmHg. There is moderate to severe aortic stenosis. There is moderate aortic regurgitation. The left atrium is severely dilated. Spontaneous contrast in LA. The tricuspid valve is normal in structure and function. There is mild tricuspid regurgitation. The right ventricular systolic pressure is estimated at 26 mmHg assuming a right atrial pressure of 3 mm Hg. There is no pericardial effusion. There is a moderate left-sided pleural effusion. Compared to the previous study on 08/14/2015, the pleural effusion is new. Plan Impression mpression 1. Acute kidney injury on chronic kidney disease stage 3. - due to intravascular volume depletion from overdiuresis and poor oral intake, poor cardiac output. - improving. 2. Worsening leukocytosis. Suspected hospital-acquired pneumonia versus aspiration pneumonia. 3. Hyperkalemia,resolved. 4. Chronic obstructive pulmonary disease. 5. Chronic atrial fibrillation on anticoagulant. 6. Rheumatic heart disease complicated by mitral stenosis, status post balloon angioplasty. 7. CHF related to valvular heart disease. 8. Hypertension, with hypertensive nephrosclerosis. 9. Altered mental status. PLAN: Overall prognosis is poor. Continue supportive treatment per renal. will sign off, please do not hesitate to call with any question. Rick Cuellar MD Jun 03, 2016 12:19
--- NOTE | 2016-06-03 12:58 | PCM.DIMED ---
Discharge Instructions Date of Service Jun 03, 2016 Dates of Hospitalization May 25, 2016 at 08:48 Discharge Diagnosis Discharge Diagnosis acute on chronic resp failure due to acute on chronic diatolic heart failure POA Pneumonia Rhueumatic heart disease Dementia, acture on chronic renal failure Test Results CBC Test 06/03/16 05:19 White Blood Count 14.3th/mm3 (3.8-10.1) Red Blood Count 4.09mil/mm3 (3.90-5.20) Hemoglobin 12.1g/dL (12.0-15.6) Hematocrit 37.8% (35.0-46.0) Mean Corpuscular Volume 92.4fL (81-100) Mean Corpuscular Hemoglobin 29.6pg (27.0-35.0) Mean Corpuscular Hemoglobin Concent 32.0% (32.0-37.0) Red Cell Distribution Width 15.1% (12.3-15.4) Platelet Count 190bil/L (150-400) Neutrophils (%) (Auto) 72.4% (40-74) Lymphocytes (%) (Auto) 10.3% (14-46) Monocytes (%) (Auto) 10.8% (4-12) Eosinophils (%) (Auto) 4.9% (0-5) Basophils (%) (Auto) 0.3% (0-3) CMP Test 05/25/16 07:35 05/26/16 05:20 05/27/16 01:10 05/28/16 04:57 Lactic Acid Level 1.3mmol/L Hemoglobin A1c 6.3% Triglycerides Level 86mg/dL Cholesterol Level 153mg/dL LDL Cholesterol, Calculated 89.800mg/dL VLDL Cholesterol 17.200mg/dL HDL Cholesterol 46mg/dL Cholesterol/HDL Ratio 3.33 Thyroid Stimulating Hormone (TSH) 0.257uIU/mL Troponin T 0.017ug/L Total Bilirubin 0.4mg/dL Aspartate Amino Transf (AST/SGOT) 30U/L Alanine Aminotransferase (ALT/SGPT) 22U/L Alkaline Phosphatase 122U/L Total Protein 7.3g/dL Test 05/30/16 05:25 05/31/16 05:27 06/01/16 05:21 06/02/16 07:25 Pro-B-Type Natriuretic Peptide 4572pg/mL Procalcitonin 0.63ng/mL Uric Acid 12.9mg/dL Magnesium Level 2.1mg/dL Estimat Glomerular Filtration Rate 34mL/min Test 06/03/16 05:19 Sodium Level 141mEq/L Potassium Level 4.7mEq/L Chloride Level 101mEq/L Carbon Dioxide Level 28mmol/L Blood Urea Nitrogen 70mg/dL Creatinine 1.82mg/dL Glucose Level 146mg/dL Calcium Level 9.1mg/dL Phosphorus Level 3.1mg/dL Albumin 2.8g/dL Diet Heart Healthy Call your provider Fever or Chills, Shortness of breath, Bleeding, Excessive diarrhea, Weakness ( unilateral) Patient Instructions Follow-up plan Please follow up with hospice care/ attending as needed. Mary Vogt DO Jun 03, 2016 12:58
[2016-06-03] MEDS ORDERED: ALBU18HF INH (13:02)
[2016-06-03] MEDS ORDERED: FLUT1DIS5 INHALATION (13:02)
[2016-06-03] MEDS ORDERED: LEVO500T16 PO (13:02)
--- NOTE | 2016-06-03 13:05 | PCM.DC.MED ---
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 COMPARISON: [facility], CT, CHEST/ABD/PELVIS/ WO CON (PNL), 2012, 9:09. FINDINGS: Kidneys: Kidneys are normal in size. Right kidney measures 6.9 cm long; left kidney measures 8.1 cm long. Right renal cortical thickness is 0.8 cm; left renal cortical thickness is 0.8 cm. Renal cortical echotexture is increased bilaterally. No hydronephrosis or nephrolithiasis. No suspicious solid mass lesions. Bilateral renal cysts redemonstrated Bladder: Pre-void bladder volume is 280 mL. Post-void residual is 67 mL. Pre- void images demonstrate no intraluminal masses or stones. On pre-void images, neither ureteral jets are noted with color Doppler interrogation. (Of note, ureteral jets may not be detectable in up to 25% of cases due to insufficient differences in specific gravity between ureteral and bladder urine). Miscellaneous: No free pelvic fluid. IMPRESSION: 1. Bilateral renal atrophy and renal cysts redemonstrated. 2. 67 cc PVR. Dictated by: Yang MUNOZ Interpreted: Eliana Don MD on 06/01/2016 at 11:30 Transcribed by: KEVIN on 06/01/2016 at 11:31 Approved by: Eliana Don MD, PhD on 06/01/2016 at 17:03 [facility] Diagnostic [place] [address] Patient Name: SEJAL GILL MR#: [id number] Location: [facility] Ordering Phys: Mary Valdovinos DO Date of Service: 06/01/16 0734 PROCEDURE: X-RAY CHEST ONE VIEW, PORTABLE ([id number]) INDICATIONS: CHF F/U TECHNIQUE: One view of the chest was acquired. COMPARISON: [facility], CR, XR CHEST 2VW, 05/29/2016, 15:19. FINDINGS: Surgical changes and devices: None. Lungs and pleura: Small pleural effusion present in bibasilar airspace opacities , slightly increased involving the right lung base. Lung volumes are increased with flattening of the hemidiaphragms suggesting COPD. Mediastinum: Mediastinal contours appear normal. Heart size is enlarged. Bones and chest wall: No suspicious bony lesions. Overlying soft tissues appear unremarkable. IMPRESSION: 1. Left basilar pleural fluid collection. 2. Persistent basilar airspace opacity slightly increased over the right lung base suspicious for pneumonia. Dictated by: Yang Miner [facility] Interpreted: Eliana Don MD on 06/01/2016 at 14:32 Transcribed by: KEVIN on 06/01/2016 at 14:33 Approved by: Eliana Don MD, PhD on 06/01/2016 at 17:06 [facility] Diagnostic [place] [address] Patient Name: SEJAL GILL MR#: [id number] Location: [facility] Ordering Phys: Mary Valdovinos Date of Service: 05/29/16 1325 PROCEDURE: X-RAY CHEST, TWO VIEWS ([id number]) INDICATIONS: CONGESTIVE HEART FAILURE TECHNIQUE: 2 views of the chest were acquired. COMPARISON: [facility], CR, XR CHEST 2VW, 05/26/2016, 12:31. FINDINGS: Surgical changes and devices: None. Lungs and pleura: Small left-sided pleural effusion is stable compared to prior examination. Opacity in the posterior and mesial aspect of the right lung slightly decreased in size compared to 05/26/16. Lungs are hyperinflated. Mediastinum: Mediastinal contours are normal. Heart size is enlarged. Bones and chest wall: No suspicious bony abnormalities. Soft tissues appear unremarkable. IMPRESSION: 1. Small left-sided pleural effusion stable compared to 05/26/16. 2. Focal opacity in the right lower lobe suspicious for pneumonia. Dictated by: Eliana Don MD, PhD on 05/29/2016 at 15:34 Approved by: Eliana Don MD, PhD on 05/29/2016 at 15:36 [facility] Diagnostic [place] [address] Patient Name: SEJAL GILL MR#: [id number] [place] [facility] [place]ing Phys: Praveen Hughes MD Date of Service: 05/26/16 0816 PROCEDURE: X-RAY CHEST, TWO VIEWS ([id number]) INDICATIONS: 85 year-old female with congestive heart failure. TECHNIQUE: 2 views of the chest were acquired. COMPARISON: [facility], CR, XR CHEST 1VW (PORTABLE), 05/25/2016, 7: 31. [facility], CR, XR CHEST 2VW, 03/23/2016, 11:43. [facility], CR, XR CHEST 2VW, 02/24/2016, 15:29. FINDINGS: Surgical changes and devices: None. Lungs and pleura: There is persistent small left subpulmonic pleural effusion. No pneumothorax. There is hazy left lower lobe opacity on the lateral projection. Right lung remains clear. Lung volumes are prominent. Mediastinum: Mediastinal contours are normal. Moderate cardiomegaly is unchanged. There is aortic atherosclerosis. Bones and chest wall: No suspicious bony abnormalities. Soft tissues appear unremarkable. IMPRESSION: 1. Persistent small left basal pleural effusion is of uncertain etiology. 2. Left lower lobe hazy opacity may represent compressive atelectasis and/or pneumonia. 3. Moderate cardiomegaly as before, without pulmonary edema to suggest congestive heart failure. 4. Prominent lung volumes raise the question of chronic obstructive pulmonary disease. Dictated by: Malcolm Winslow M.D. on 05/26/2016 at 12:58 Approved by: Malcolm Winslow M.D. on 05/26/2016 at 13:00 [facility] Diagnostic [place] [address] Patient Name: SEJAL GILL MR#: [id number] Location: [facility] [place] Ordering Phys: Marbella Ibrahim MD Date of Service: 05/25/16 0641 PROCEDURE: X-RAY CHEST ONE VIEW, PORTABLE ([id number]) INDICATIONS: SHORTNESS OF BREATH TECHNIQUE: One view of the chest was acquired. COMPARISON: [facility], CR, XR CHEST 2VW, 03/23/2016, 11:43. [facility], CR, XR CHEST 1VW (PORTABLE), 02/17/2016, 5:07. FINDINGS: Surgical changes and devices: None. Lungs and pleura: Small pleural effusion is present and there is airspace opacity within the left lung base. Lungs otherwise are clear and hyperinflated. Mediastinum: Mediastinal contours appear normal. Heart size is normal. Bones and chest wall: No suspicious bony lesions. Overlying soft tissues appear unremarkable. IMPRESSION: Small left pleural effusion and basilar airspace opacity consistent with compressive atelectasis versus pneumonia. Correlate clinically. Dictated by: Yang Miner [facility]RA Interpreted: Eliana Don MD on 05/25/2016 at 9 :57 Transcribed by: KEVIN on 05/25/2016 at 10:00 Approved by: Eliana Don MD, PhD on 05/25/2016 at 16:57 Cardiac Echo Impression Echocardiogram Report Name: SEJAL GILL JStudy Date: 05/25/2016 Heigh t: 65 in Hospital Exam Location: [facility] Weigh t: 100 lb Gender: Female BSA: 1.5 m2 : 1930 Age: 85 yrs BP: 1 60/82 mmHg Reason For Study: Congestive Heart Failure Ordering Physician: H[facility]PITALIST [facility] Performed By: Marianne Weeks Referring Physician: PRAVEEN HUGHES Interpretation Summary The left ventricular cavity is small. There is mild concentric left ventricular hypertrophy. The ejection fraction is estimated to be 60-65%. Diastolic function could not be accurately assessed due to atrial fibrillation. The right ventricle is normal in size and function. The mitral valve leaflets are severely calcified. There is moderate calcification extending into the subvalvular apparatus. There is moderate mitral stenosis. The mitral valve mean gradient is 5.7 mmHg. There is trace mitral regurgitation. The aortic valve is moderately calcified. The aortic valve mean gradient is 19.9 mmHg. There is moderate to severe aortic stenosis. There is moderate aortic regurgitation. The left atrium is severely dilated. Spontaneous contrast in LA. The tricuspid valve is normal in structure and function. There is mild tricuspid regurgitation. The right ventricular systolic pressure is estimated at 26 mmHg assuming a right atrial pressure of 3 mm Hg. There is no pericardial effusion. There is a moderate left-sided pleural effusion. Compared to the previous study on 08/14/2015, the pleural effusion is new. Brief History The patient is an 85 year old female with a history of chronic atrial fibrillation on warfarin, rheumatic heart disease complicated by mitral stenosis , CKD stage 3, and HTN who presents to the ER via EMS due to increasing SOB for several weeks. At home she has home oxygen She was admitted for evaluation and treatment of acute on chronic respiratory failure likely due to acute exacerbation of CHF. Hospital Course The patient is an 85 year old female with a history of chronic atrial fibrillation on warfarin, rheumatic heart disease complicated by mitral stenosis , CKD stage 3, and HTN presents to the ER via EMS due to increasing SOB for several weeks. Acute on chronic respiratory failure present on admission due acute on chronic to diastolic heart failure - Patient found to have hypoxia, and confusion due to hypoxia, with shortness of breath secondary to congestive heart failure and left pleural effusion with atelectasis - This appears to be primarily due to Acute on chronic diastolic congestive heart failure. Echocardiogram ordered and results are as above - Solu-Medrol 125 mg IV were given in the emergency room we have initially held further doses. - She also developed a RLL PNA while she was on Ceftriaxone thus, we switched her to Levaquin from Ceftriaxone, solumedrol, duonebs and albuterol are ordered. Urine strep and legionella are also ordered and were negative: Stopped steroids as she has improved. Switched Levaquin to PO, renally dosed, we asked her to complete this course upon discharge. - Cardiology was consulted and they have seen patient and informed her she will not be a good surgical candidate for mitral valve repair. She and family are understanding of their consult recommendation. Acute on chronic Renal Failure: Due to Diuresis for CHF. Stopped Lasix, Losartan medications. Cardiology is consulted, they will see the patient to provide recommendations which will be useful for goals of care. Patient and family met with palliative care made a decision to go home on hospice on 06/02/16 - Nehrology was also consulted in the light of her sharply elevated BUN and worsened renal function.: Nephrotoxic medications were discontinued. Renal function is improving 06/02/16. Hyperkalemia/Hypokalemia: Patient's potassium levels were monitored and appropriated repleted and adjusted. Potassium was WNL on the date of discharge. Chronic atrial fibrillation/atrial flutter: Her home medication coumadin was continued and INR was monitored History of rheumatic heart disease - Patient appears to have progression of aortic stenosis from mild to severe which may be contributing to her congestive heart failure - Patient also has moderate mitral valve stenosis after balloon angioplasty and has a severely calcified valve. This also likely contributing to her diastolic congestive heart failure - cardiology was consulted as above. Chronic kidney disease stage III - Patient was given a bolus of normal saline in the emergency room prior to her diagnosis of congestive heart failure. She was initially managed on Lasix but later discontinued due to renal injury. Dementia/expressive aphasia -Family are aware that she may need residential placement or 24-hour care at home. Apparently the family is able to afford that. -She has had a physical therapy evaluation confirming her need for skilled care either at home or a residential setting. -Family agreed for her to go home on hospice care Disposition: Will discuss her goals with the help of cardiology. Patient will need to be hospitalized for another 24 hours for further evaluation and treatment of the above problems. Anticipate she will be stable enough to go home tomorrow with o/p cardiology follow up.. Exam Vital Signs (Last) Date Time Temp Pulse Resp B/P Pulse Ox O2 Delivery O2 Flow Rate FiO2 06/03/16 08:12 Supplement Oxygen 06/03/16 05:48 36.6 76 16 134/65 95 2.00 Test 05/25/16 07:35 05/26/16 05:20 05/27/16 01:10 05/28/16 04:57 Lactic Acid Level 1.3mmol/L (0.4-2.0) Hemoglobin A1c 6.3% (4.8-5.6) Triglycerides Level 86mg/dL (0-149) Cholesterol Level 153mg/dL (100-199) LDL Cholesterol, Calculated 89.800mg/dL (0-99) VLDL Cholesterol 17.200mg/dL HDL Cholesterol 46mg/dL (>39) Cholesterol/HDL Ratio 3.33 (0.0-4.4) Thyroid Stimulating Hormone (TSH) 0.257uIU/mL (0.450-4.500) Troponin T 0.017ug/L (0.0-0.011) Total Bilirubin 0.4mg/dL (0.0-1.2) Aspartate Amino Transf (AST/SGOT) 30U/L (0-50) Alanine Aminotransferase (ALT/SGPT) 22U/L (0-32) Alkaline Phosphatase 122U/L (25-165) Total Protein 7.3g/dL (6.4-8.4) Test 05/30/16 05:25 05/30/16 15:57 05/31/16 05:27 06/01/16 05:21 Pro-B-Type Natriuretic Peptide 4572pg/mL (0-738) Urine Legionella pneumophilia Ag Negative (Negative) Procalcitonin 0.63ng/mL (0.00-0.08) Uric Acid 12.9mg/dL (2.6-7.2) Magnesium Level 2.1mg/dL (1.6-2.6) Test 06/01/16 09:30 06/02/16 05:35 06/02/16 07:25 06/03/16 05:19 Urine Color Straw (YELLOW) Urine Appearance Hazy (CLEAR,HAZY) Urine pH 6.0 (5.0-8.0) Urine Specific Bascom 1.010 (1.003-1.035) Urine Protein 30mg/dL (NEG,TRACE) Urine Glucose (UA) Negativemg/dL (NEGATIVE) Urine Ketones Negativemg/dL (NEGATIVE) Urine Occult Blood Negative (NEGATIVE) Urine Nitrite Negative (NEGATIVE) Urine Bilirubin Negative (NEGATIVE) Urine Urobilinogen Normalmg/dL (NORMAL) Urine Leukocyte Esterase Small (NEGATIVE) Urine RBC 3-10/hpf (0-2) Urine WBC 11-50/hpf (0-5) Urine Epithelial Cells Occasional/hpf (NONE-MOD) Urine Crystals None seen (NONE SEEN) Urine Bacteria None/hpf (NONE-FEW) Urine Hyaline Casts None/lpf (NONE) Urine Granular Casts None seen (NONE SEEN) Urine Waxy Casts None seen (NONE SEEN) Urine Red Blood Cell Casts None seen (NONE SEEN) Urine White Blood Cell Casts None seen (NONE SEEN) Urine Mucus None seen (None Seen) Urine Trichomonas None seen (NONE SEEN) Urine Yeast None (NONE SEEN) Urinalysis Comment None Urine Culture Reflexed Indicated Hold Urine Received (Received) Prothrombin Time 41.4sec (8.1-12.5) Prothromb Time International Ratio 3.77ratio Estimat Glomerular Filtration Rate 34mL/min (>59) White Blood Count 14.3th/mm3 (3.8-10.1) Red Blood Count 4.09mil/mm3 (3.90-5.20) Hemoglobin 12.1g/dL (12.0-15.6) Hematocrit 37.8% (35.0-46.0) Mean Corpuscular Volume 92.4fL (81-100) Mean Corpuscular Hemoglobin 29.6pg (27.0-35.0) Mean Corpuscular Hemoglobin Concent 32.0% (32.0-37.0) Red Cell Distribution Width 15.1% (12.3-15.4) Platelet Count 190bil/L (150-400) Neutrophils (%) (Auto) 72.4% (40-74) Lymphocytes (%) (Auto) 10.3% (14-46) Monocytes (%) (Auto) 10.8% (4-12) Eosinophils (%) (Auto) 4.9% (0-5) Basophils (%) (Auto) 0.3% (0-3) Sodium Level 141mEq/L (134-144) Potassium Level 4.7mEq/L (3.5-5.2) Chloride Level 101mEq/L (97-108) Carbon Dioxide Level 28mmol/L (18-29) Blood Urea Nitrogen 70mg/dL (8-27) Creatinine 1.82mg/dL (0.57-1.00) Glucose Level 146mg/dL (60-99) Calcium Level 9.1mg/dL (8.5-10.1) Phosphorus Level 3.1mg/dL (2.5-4.9) Albumin 2.8g/dL (3.4-5.0) Microbiology Results Blood and urine cultures are pending from the emergency room. Discharge Medications Discharge Medications Atenolol (Atenolol) 100 Mg Tablet 100 MG PO DAILY (Reported) Atorvastatin Calcium (Atorvastatin Calcium) 20 Mg Tablet 20 MG PO HS (Reported) Fluticasone/Salmeterol (Advair 500-50 Diskus) 1 Each Disk.w.dev 1 PUFF INHALATION BID Prescribed by: MARY VALDOVINOS DO Lactose-Reduced Food (Ensure Original) 237 Ml Liquid 237 ML PO DAILY (Reported) Levofloxacin (Levaquin) 500 Mg Tablet 500 MG PO Q48H Prescribed by: MARY VALDOVINOS DO Losartan Potassium (Losartan Potassium) 50 Mg Tablet 50 MG DAILY (Reported) Multivits-Min/Iron/FA/Lutein (Centrum Silver Women Tablet) 8 Mg Iron-400 Mcg- 300 Mcg Tablet 1 EACH PO DAILY (Reported) Warfarin Sodium (Warfarin Sodium) 5 Mg Tablet 5 MG PO DAILY (Reported) Warfarin Sodium (Warfarin Sodium) 2.5 Mg Tablet 2.5 MG PO DAILY (Reported) As needed Albuterol Sulfate (Ventolin HFA Inhaler) 200 Puff/18 Gm Inhaler 1 PUFF INH Q4 PRN PRN For Wheezing Prescribed by: MARY VALDOVINOS DO Followup Plan Follow-up plan Please follow up with hospice care/ attending as needed. Discharge Diet: Mary Campos DO Jun 03, 2016 13:05 Please follow up with hospice care/ attending as needed. Discharge Diet: Mary Campos DO Jun 03, 2016 13:05
--- NOTE | 2016-06-03 14:11 | NUR ---
Social Work Note: Discharge Data& Assessment: EMR reviewed. Per pt is medically ready to discharge home via POV with Hospice to open later this week. Fartun Rai is a 85 year old female admitted on 05/25/2016 for CHF, COPD and UTI. Pt has signed consents for Hospice, Hospice will be delivering equipment today to pt's home and the Hospice will be opening services on 06/06/2016 between 2-3p.m. SW met with pt and pt family to confirm discharge plan and assess for any unmet needs. Pt and pt family deny any other needs. SW informed Hospice of pt discharge home. No other discharge needs identified. All updated and agreeable to plan. Plan: Per pt is medically ready to discharge home via POV with Hospice to open services on 06/06/2016 between 2-3p.m. Equipment delivered to pt home today. Pt family transporting pt home. Pt and pt family deny any other needs. No other discharge needs identified. All updated and agreeable to plan. CHAVA Gross
--- NOTE | 2016-06-03 15:54 | NUR ---
DISCHARGE Removed patient's saline lock IV, catheter intact. Placed gauze and tegaderm as drsg. Patient got dressed with help of family members. Reviewed discharge paperwork with patient and daughter at bedside. Daughter acknowledged medication schedule. Gave hard copy Rx in packet, along with original POLST form, copy in chart. Patient transferred to own portable O2 tank and stood and transferred into wheelchair using FWW. Escorted outside to family vehicle and left with all personal belongings.
== END 2016-06-03 14:11 | disposition hospice, home (50) | DRG 291 ==
LOC: SED 06:32 → OSC 08:48
PROVIDERS: ADMIT Internal Medicine Infectious Disease; ATTEND Internal Medicine Infectious Disease
PROC: 4A033R1 Measurement of Arterial Saturation, Peripheral, Percutaneous Approach (ICD-10-PCS; principal; 2016-06-01)
DX: I09.81 Rheumatic heart failure (principal); J96.21 Acute and chronic respiratory failure with hypoxia; J18.9 Pneumonia, unspecified organism; N17.9 Acute kidney failure, unspecified; J90 Pleural effusion, not elsewhere classified; I50.33 Acute on chronic diastolic (congestive) heart failure; F03.90 Unspecified dementia, unspecified severity, without behavioral disturbance, psychotic disturbance, mood disturbance, and anxiety; I48.2 Chronic atrial fibrillation; N18.3 Chronic kidney disease, stage 3 (moderate); I12.9 Hypertensive chronic kidney disease with stage 1 through stage 4 chronic kidney disease, or unspecified chronic kidney disease; E78.5 Hyperlipidemia, unspecified; Z86.73 Personal history of transient ischemic attack (TIA), and cerebral infarction without residual deficits; E87.6 Hypokalemia; Z51.5 Encounter for palliative care; J44.9 Chronic obstructive pulmonary disease, unspecified; I05.0 Rheumatic mitral stenosis